=== PATIENT | male | born 1960 | race Caucasian/White ===

== ENCOUNTER 2018-11-20 10:46 | Emergency (ER) | payer OTHER ==
[2018-11-20 11:28] LABS: ABSOLUTE BASOPHILS # (AUTO) 0.1 10^3/uL (0.0-0.2); ABSOLUTE LYMPHOCYTES (AUTO) 1.6 10^3/uL (0.5-4.7); ABSOLUTE MONOCYTES (AUTO) 1.3 10^3/uL (0.1-1.4); ABSOLUTE NEUT (AUTO) 14.6 10^3/uL (1.7-8.2); BASOPHILS % (AUTO) 0.7 % (0-2); EOSINOPHILS % (AUTO) 0.1 % (0-6); HEMATOCRIT 45.6 % (37.9-51.0); HEMOGLOBIN 15.6 g/dL (13.5-17.0); MEAN CORPUSCULAR HEMOGLOBIN 30.9 pg (27.0-33.4); MEAN CORPUSCULAR HGB CONC 34.3 g/dL (32.0-36.0); MEAN CORPUSCULAR VOLUME 90 fl (80-97); MONOCYTES % (AUTO) 7.2 % (3-13); PLATELET COUNT 323 10^3/uL (150-450); RED BLOOD COUNT 5.07 10^6/uL (4.35-5.55); RED CELL DISTRIBUTION WIDTH 13.6 % (11.5-14.0); TOTAL CELLS COUNTED % (AUTO) 100 %; WHITE BLOOD COUNT 17.5 10^3/uL (4.0-10.5)
--- NOTE | 2018-11-20 11:33 | ER Document Report ---
ED General - General Chief Complaint: Chest Pain Stated Complaint: CHEST PAIN Time Seen by Provider: 11/20/18 11:26 Primary Care Provider: STEVE BLUM MD [ACTIVE STAFF] - Follow up as needed Notes: Patient says that he was in [employer] this morning and then did not feel good. He began having muscle spasms in his left rib cage, which he has had before, but also then started having some on the right side which is not usual for him. He felt very dizzy and drove himself here. He fell down and may have passed out, leaving his truck in the entrance way. He did not have any chest pains. He says he is never had any chest pains with any of his other symptoms this morning. Patient has been nauseated for the past day or 2. Says he drank some alcohol Tuesday night, but did not eat or drink anything yesterday. He says he drinks alcohol, maybe a couple of drinks a day after work, but does not feel he drinks too much. He has not had any abdominal pains. Has a history of a Dontrell fundoplication so he cannot vomit. Patient's work involves being outside all the time. It is been extremely warm and humid here for the past several weeks. Additionally, patient's unexpectedly on Mother's Day of this year. He saw his primary care provider, Dr. Rogers, who put him on Lexapro recently. Patient says that his health insurance has lapsed and was unable to get a CT scan that Dr. Winter wanted Patient has a history of bladder cancer for which she has had surgery as well as implants in the bladder or chemo. TRAVEL OUTSIDE OF THE [place] IN LAST 30 DAYS: No - Related Data Allergies/Adverse Reactions: No Known Allergies Allergy (Unverified 11/20/18 10:47) Past Medical History - Social History Smoking Status: Unknown if Ever Smoked Cigarette use (# per day): No Family History: Reviewed & Not Pertinent - Past Medical History Cardiac Medical History: Reports: Hx Hypercholesterolemia Malignancy Medical History: Reports Other - Bladder cancer surgery and aftercare Psychiatric Medical History: Reports: Hx Depression Past Surgical History: Reports: Other - Dontrell fundoplication. Review of Systems - Review of Systems Notes: REVIEW OF SYSTEMS: CONSTITUTIONAL : Denies fever. Feels very weak and tired. No appetite. Vital signs are all essentially normal. EENT: Denies eye, ear, nose or mouth or throat pain or other symptoms. CARDIOVASCULAR: Denies chest pain. RESPIRATORY: Denies cough, chest congestion, or shortness of breath. GASTROINTESTINAL: Some nausea but denies vomiting or diarrhea or constipation. A. GENITOURINARY: Denies difficulty or painful urinating, urinary frequency, blood in urine. MUSCULOSKELETAL: Denies back or neck pain. Denies joint pain or swelling. SKIN: Denies rash or skin lesions. NEUROLOGICAL: Denies LOC or altered mental status. Denies headache. Denies sensory loss or motor deficits. ALL OTHER SYSTEMS REVIEWED AND NEGATIVE. Physical Exam - Vital signs Vitals: Resp Pulse Ox 13 100 11/20/18 10:59 11/20/18 10:59 Interpretation: Normal Notes: PHYSICAL EXAMINATION: GENERAL: Well-appearing, in no acute distress. HEAD: Atraumatic, normocephalic. EYES: Pupils equal round and reactive to light, extraocular movements intact. No scleral icterus. ENT: oropharynx clear without exudates. Moist mucous membranes. NECK: Normal range of motion, supple. LUNGS: Breath sounds clear and equal bilaterally. HEART: Regular rate and rhythm without murmurs. ABDOMEN: Soft, nontender. No guarding or rebound. No masses. BACK: No tenderness throughout entire back. EXTREMITIES: Normal range of motion without pain. NEUROLOGICAL: Normal speech, normal gait. Normal sensory, motor, and reflex exams. Awake, alert, and oriented x3. Cranial nerves normal. PSYCH: Normal mood, normal affect. SKIN: Warm, dry, no rashes. Course - Re-evaluation Re-evalutation: 11/20/18 14:57 Feels much better. - Vital Signs Vital signs: Temp Pulse Resp BP Pulse Ox 98.0 F 16 167/97 H 96 11/20/18 15:00 11/20/18 15:00 11/20/18 15:00 11/20/18 15:00 - Laboratory Result Diagrams: 11/20/18 11:00 11/20/18 11:00 Laboratory results interpreted by me: 11/20/18 11/20/18 11/20/18 11:00 11:00 11:00 WBC 17.5 H Seg Neutrophils % 83.0 H Lymphocytes % 9.0 L Absolute Neutrophils 14.6 H Potassium 3.5 L Creatinine 1.55 H Est GFR ( Amer) 56 L Est GFR (Non-Af Amer) 46 L Glucose 153 H Total Bilirubin 1.4 H AST 62 H Creatine Kinase 375 H CK-MB (CK-2) 11.60 H Urine Protein Urine Glucose (UA) Urine Ascorbic Acid 11/20/18 12:02 WBC Seg Neutrophils % Lymphocytes % Absolute Neutrophils Potassium Creatinine Est GFR ( Amer) Est GFR (Non-Af Amer) Glucose Total Bilirubin AST Creatine Kinase CK-MB (CK-2) Urine Protein 100 H Urine Glucose (UA) 50 H Urine Ascorbic Acid 20 H Discharge - Discharge Clinical Impression: Dehydration Condition: Stable Disposition: HOME, SELF-CARE Additional Instructions: Dehydration Dehydration can result from vomiting or diarrhea, fever, or decreased intake of fluids. If severe, hospitalization and intravenous fluids may be required. Most cases are treated at home with fluids by mouth. For the next 24 hours, drink lots of clear fluids. In mild cases, this can be soda pop or sports drinks. For more severe dehydration, the doctor may recommend special fluids such as Pedialyte or Lytren. Try to get three liters (3 quarts) of fluid per day. If vomiting occurs, continue to drink the fluids frequently (every 15 to 20 minutes), but in small amounts (one or two ounces). Depending on the type of dehydration, the doctor may prescribe antinausea medicine or potassium replacements. Call the doctor or return for re-examination if you become progressively weak, vomit repeatedly, or have other new symptoms. Intravenous (IV) Fluids As part of your care today, you received intravenous (IV) fluids. IV fluids are administered to patients who are dehydrated or to those who have certain chemical (electrolyte) abnormalities that need correcting. Rest, drink plenty of fluids this evening, and work lightly over the next day or 2. Referrals: STEVE BLUM MD [ACTIVE STAFF] - Follow up as needed
[2018-11-20 11:35] LABS: INTERNATIONAL RATION (INR) 0.94; PROTHROMBIN TIME 12.5 SEC (11.4-15.4)
[2018-11-20 11:49] LABS: ALANINE AMINOTRANSFERASE 49 U/L (21-72); ALKALINE PHOSPHATASE 83 U/L (38-126); ANION GAP 16 (5-19); ASPARTATE AMINO TRANSFERASE 62 U/L (17-59); BILIRUBIN,DIRECT 0.2 mg/dL (0.0-0.4); BILIRUBIN,TOTAL 1.4 mg/dL (0.2-1.3); BLOOD UREA NITROGEN 20 mg/dL (7-20); CALCIUM 9.9 mg/dL (8.4-10.2); CARBON DIOXIDE 24 mmol/L (22-30); CHLORIDE 98 mmol/L (98-107); CREATINE KINASE 375 U/L (55-170); GLUCOSE 153 mg/dL (75-110); POTASSIUM 3.5 mmol/L (3.6-5.0); SODIUM 137.8 mmol/L (137-145); TOTAL PROTEIN 7.1 g/dL (6.3-8.2)
[2018-11-20] MEDS: NORMAL SALINE 1000 ML 1,000 ML IV PRN ×2 (12:00→12:25)
[2018-11-20 12:06] LABS: TROPONIN I < 0.012 ng/mL
[2018-11-20 12:37] LABS: APPEARANCE,URINE CLOUDY; BILIRUBIN,URINE NEGATIVE (NEGATIVE); GLUCOSE, URINE 50 mg/dL (NEGATIVE); KETONES,URINE NEGATIVE (NEGATIVE); LEUKOCYTE ESTERASE,URINE NEGATIVE (NEGATIVE); NITRITE,URINE NEGATIVE (NEGATIVE); PROTEIN,URINE 100 mg/dL (NEGATIVE); URINE SPECIFIC GRAVITY 1.015; UROBILINOGEN,URINE NEGATIVE mg/dL (<2.0)
[2018-11-20 12:39] LABS: COLOR,URINE YELLOW
[2018-11-20 15:28] VITALS: BP 167/97
--- NOTE | 2018-11-21 18:41 | EKG REPORT ---
SEVERITY:- NORMAL ECG - SINUS RHYTHM : Confirmed by: Will Chandler MD 21-Nov-2018 18:41:24
--- NOTE | 2018-11-22 07:37 | EKG REPORT ---
SEVERITY:- BORDERLINE ECG - SINUS RHYTHM BORDERLINE T WAVE ABNORMALITIES : Confirmed by: Will Chandler MD 22-Nov-2018 07:36:32
== END 2018-11-20 15:20 | disposition home or self-care (01) ==
LOC: ER 10:46
DX: E86.0 Dehydration (principal); M62.838 Other muscle spasm; R42 Dizziness and giddiness; R11.0 Nausea; R63.0 Anorexia; R53.83 Other fatigue; Z85.51 Personal history of malignant neoplasm of bladder
CPT/HCPCS: 93005; 99285; 96360; 36415; 82553; 82550; 85025; 85610; 80053; 81001; 84484; 93010; J7030

== ENCOUNTER 2018-12-15 12:42 | Inpatient (IN) | payer BC ==
[2018-12-15] MEDS ORDERED: ONDANSETRON HCL INJ/PF 4 MG/2 ML SDV IV ONE (13:11)
[2018-12-15] MEDS ORDERED: KETOROLAC TROMETHAMINE INJ/PF 30 MG/1 ML SDV IV ONE ×2 (13:11→18:55)
--- NOTE | 2018-12-15 13:15 | ER Document Report ---
ED Medical Screen (RME) - General Chief Complaint: Cough Stated Complaint: SHORTNESS OF BREATH Time Seen by Provider: 12/15/18 13:02 Primary Care Provider: UMBERTO ALVARADO MD [Primary Care Provider] - Follow up as needed Mode of Arrival: Wheelchair Information source: Patient Notes: 57-year-old male presented to ED for complaint of headache body aches fever si nce Tuesday. His states his fevers been from 101-103.5 and is 102.9 right now. He states the lowest his temperature is been since Tuesday was 99 this morning. Patient is alert oriented shivering and has been extremely ill since Tuesday. He states he has a history of bladder cancer that is come back multiple times. He has had numerous bladder resections TURB, tonsillectomy, he states he is not able to take Tylenol due to his liver. He states he no longer smokes but he does drink. He does not use any drugs. Lives with his family. He states he has not had a temperature under 99 since Tuesday and most of the time is been over 101. He is toxic in appearance. I have greeted and performed a rapid initial assessment of this patient. A comprehensive ED assessment and evaluation of the patient, analysis of test results and completion of medical decision making process will be conducted by an additional ED providers. Dictation of this chart was performed using voice recognition software; therefore, there may be some unintended grammatical errors. TRAVEL OUTSIDE OF THE [place] IN LAST 30 DAYS: No - Related Data Allergies/Adverse Reactions: No Known Allergies Allergy (Verified 12/15/18 12:45) Past Medical History - Social History Chew tobacco use (# tins/day): No Frequency of alcohol use: Occasional Drug Abuse: None - Past Medical History Cardiac Medical History: Reports: Hx Hypercholesterolemia Renal/ Medical History: Denies: Hx Peritoneal Dialysis Psychiatric Medical History: Reports: Hx Depression Past Surgical History: Reports: Hx Abdominal Surgery - dinah, Hx Tonsillectomy, Hx Urinary Tract Surgery, Other - Dontrell fundoplication. Physical Exam - Vital signs Vitals: Temp Pulse Resp BP Pulse Ox 102.9 F H 102 H 20 173/92 H 90 L 12/15/18 12:56 12/15/18 12:56 12/15/18 12:56 12/15/18 12:56 12/15/18 12:56 Course - Vital Signs Vital signs: Temp Pulse Resp BP Pulse Ox 102.9 F H 102 H 20 173/92 H 90 L 12/15/18 12:56 12/15/18 12:56 12/15/18 12:56 12/15/18 12:56 12/15/18 12:56 Doctor's Discharge - Discharge Referrals: UMBERTO ALVARADO MD [Primary Care Provider] - Follow up as needed
[2018-12-15 14:12] LABS: HEMATOCRIT 34.2 % (37.9-51.0); HEMOGLOBIN 11.6 g/dL (13.5-17.0); MEAN CORPUSCULAR HEMOGLOBIN 30.8 pg (27.0-33.4); MEAN CORPUSCULAR HGB CONC 33.9 g/dL (32.0-36.0); MEAN CORPUSCULAR VOLUME 91 fl (80-97); PLATELET COUNT 438 10^3/uL (150-450); RED BLOOD COUNT 3.76 10^6/uL (4.35-5.55); RED CELL DISTRIBUTION WIDTH 13.2 % (11.5-14.0); WHITE BLOOD COUNT 13.5 10^3/uL (4.0-10.5)
[2018-12-15 14:16] LABS: INTERNATIONAL RATION (INR) 1.07; PROTHROMBIN TIME 13.9 SEC (11.4-15.4)
[2018-12-15 14:23] LABS: VENOUS BLOOD BASE EXCESS 1.6 mmol/L; VENOUS BLOOD HCO3 26.6 mmol/L (20-32); VENOUS BLOOD PCO2 42.8 mmHg (35-63); VENOUS BLOOD PH 7.41 (7.30-7.42)
[2018-12-15] MEDS: NORMAL SALINE 1000 ML 1,000 ML IV PRN ×2 (14:30→15:31)
[2018-12-15 14:31] LABS: ABSOLUTE LYMPHOCYTES# (MANUAL) 0.3 10^3/uL (0.5-4.7); ABSOLUTE MONOCYTES # (MANUAL) 0.1 10^3/uL (0.1-1.4); BASOPHILS % (MANUAL) 0 % (0-2); EOSINOPHILS % (MANUAL) 0 % (0-6); LYMPHOCYTES % (MANUAL) 2 % (13-45); MONOCYTES % (MANUAL) 1 % (3-13); SEGMENTED NEUTROPHILS % (MAN) 97 % (42-78); TOTAL CELLS COUNTED 100
[2018-12-15 14:32] LABS: RBC MORPHOLOGY COMMENT NORMO-CYTIC/CHROMIC
[2018-12-15 14:33] LABS: PLATELET COMMENT ADEQUATE
[2018-12-15 14:36] LABS: ALBUMIN 3.6 g/dL (3.5-5.0); ALKALINE PHOSPHATASE 213 U/L (38-126); ANION GAP 15 (5-19); ASPARTATE AMINO TRANSFERASE 246 U/L (17-59); BILIRUBIN,DIRECT 1.3 mg/dL (0.0-0.4); BILIRUBIN,TOTAL 1.6 mg/dL (0.2-1.3); BLOOD UREA NITROGEN 11 mg/dL (7-20); CALCIUM 8.9 mg/dL (8.4-10.2); CARBON DIOXIDE 26 mmol/L (22-30); CHLORIDE 92 mmol/L (98-107); GLUCOSE 165 mg/dL (75-110); POTASSIUM 4.5 mmol/L (3.6-5.0); TOTAL PROTEIN 6.1 g/dL (6.3-8.2)
[2018-12-15] MEDS ORDERED: NORMAL SALINE 1000 ML 1,000 ML IV ONE (15:22)
[2018-12-15] MEDS ORDERED: ACETAMINOPHEN 1,000 MG/100 ML RTUPB IV ONE (15:22)
--- NOTE | 2018-12-15 15:22 | ER Document Report ---
ED General - General Chief Complaint: Cough Stated Complaint: SHORTNESS OF BREATH Time Seen by Provider: 12/15/18 13:02 Primary Care Provider: UMBERTO ALVARADO MD [Primary Care Provider] - Follow up as needed Mode of Arrival: Wheelchair Information source: Patient Notes: Patient is a 57-year-old male with past medical history of recurrent bladder cancer and hyperlipidemia presenting to the emergency department with multiple complaints today. Patient reports he has had fever and body aches with a headache that started on Tuesday. He states he was seen at an urgent care on Tuesday or Tuesday and was placed on an antibiotic. Patient reports his symptoms have persisted since then. The degree describes a pain on the top of his head with light palpation, he also reports a headache in his bilateral temples. He reports some diarrhea and shortness of breath but denies any nausea, vomiting or chest pain. Patient is febrile at the time of arrival. He also reports that his primary care physician noted some type of a mass on the right lateral side of his neck, states that he is supposed to have a CT scan of this area however this has not been able to be completed yet. TRAVEL OUTSIDE OF THE [place] IN LAST 30 DAYS: No - Related Data Allergies/Adverse Reactions: No Known Allergies Allergy (Verified 12/15/18 12:45) Past Medical History - General Information source: Patient - Social History Smoking Status: Never Smoker Chew tobacco use (# tins/day): No Frequency of alcohol use: Occasional Drug Abuse: None Family History: Reviewed & Not Pertinent Patient has suicidal ideation: No Patient has homicidal ideation: No - Past Medical History Cardiac Medical History: Reports: Hx Hypercholesterolemia Pulmonary Medical History: Reports: Hx Bronchitis, Hx Pneumonia Renal/ Medical History: Denies: Hx Peritoneal Dialysis Psychiatric Medical History: Reports: Hx Depression Past Surgical History: Reports: Hx Abdominal Surgery - dinah, Hx Tonsillectomy, Hx Urinary Tract Surgery, Other - Dontrell fundoplication. Review of Systems - Review of Systems Constitutional: Chills, Fever EENT: No symptoms reported Cardiovascular: No symptoms reported Respiratory: Cough, Short of breath Gastrointestinal: Nausea Genitourinary: No symptoms reported Male Genitourinary: No symptoms reported Musculoskeletal: No symptoms reported Skin: No symptoms reported Hematologic/Lymphatic: No symptoms reported Neurological/Psychological: Headaches Physical Exam - Vital signs Vitals: Temp Pulse Resp BP Pulse Ox 102.9 F H 102 H 20 173/92 H 90 L 12/15/18 12:56 12/15/18 12:56 12/15/18 12:56 12/15/18 12:56 12/15/18 12:56 - Notes Notes: PHYSICAL EXAMINATION: GENERAL: No acute distress. HEAD: Atraumatic, normocephalic. EYES: Pupils equal round and reactive to light, extraocular movements intact, sclera anicteric, conjunctiva are normal. ENT: Nares patent, oropharynx clear without exudates. Moist mucous membranes. NECK: Normal range of motion, supple without lymphadenopathy LUNGS: Breath sounds clear to auscultation bilaterally and equal. No wheezes rales or rhonchi. HEART: Regular rate and rhythm without murmurs ABDOMEN: Soft, nontender, nondistended abdomen. No guarding, no rebound. No masses appreciated. Musculoskeletal: Normal range of motion, no pitting or edema. No cyanosis. NEUROLOGICAL: Cranial nerves grossly intact. Normal speech, normal gait. Normal sensory, motor exams PSYCH: Normal mood, normal affect. SKIN: Warm, Dry, normal turgor, no rashes or lesions noted. Course - Re-evaluation Re-evalutation: Laboratory 12/15/18 12/15/18 12/15/18 13:55 13:55 13:55 WBC 13.5 H RBC 3.76 L Hgb 11.6 L Hct 34.2 L MCV 91 MCH 30.8 MCHC 33.9 RDW 13.2 Plt Count 438 Total Counted 100 Seg Neutrophils % Not Reportable Seg Neuts % (Manual) 97 H Lymphocytes % Not Reportable Lymphocytes % (Manual) 2 L Monocytes % Not Reportable Monocytes % (Manual) 1 L Eosinophils % Not Reportable Eosinophils % (Manual) 0 Basophils % Not Reportable Basophils % (Manual) 0 Absolute Neutrophils Not Reportable Abs Neuts (Manual) 13.1 H Absolute Lymphocytes Not Reportable Abs Lymphs (Manual) 0.3 L Absolute Monocytes Not Reportable Abs Monocytes (Manual) 0.1 Absolute Eosinophils Not Reportable Absolute Eos (Manual) 0.0 Absolute Basophils Not Reportable Abs Basophils (Manual) 0.0 Platelet Comment ADEQUATE RBC Morph Comment NORMO-CYTIC/CHROMIC PT 13.9 INR 1.07 VBG pH VBG pCO2 VBG HCO3 VBG Base Excess Sodium 132.6 L Potassium 4.5 Chloride 92 L Carbon Dioxide 26 Anion Gap 15 BUN 11 Creatinine 0.93 Est GFR ( Amer) > 60 Est GFR (Non-Af Amer) > 60 Glucose 165 H Lactic Acid Calcium 8.9 Total Bilirubin 1.6 H Direct Bilirubin 1.3 H Neonat Total Bilirubin Not Reportable Neonat Direct Bilirubin Not Reportable Neonat Indirect Bili Not Reportable GGT AST 246 H ALT 162 Alkaline Phosphatase 213 H Troponin I Total Protein 6.1 L Albumin 3.6 Lipase 65.7 Urine Color Urine Appearance Urine pH Ur Specific [place] Urine Protein Urine Glucose (UA) Urine Ketones Urine Blood Urine Nitrite Urine Bilirubin Urine Urobilinogen Ur Leukocyte Esterase Urine WBC (Auto) Urine RBC (Auto) Urine Ascorbic Acid Serum Alcohol 12/15/18 12/15/18 12/15/18 13:55 13:55 13:55 WBC RBC Hgb Hct MCV MCH MCHC RDW Plt Count Total Counted Seg Neutrophils % Seg Neuts % (Manual) Lymphocytes % Lymphocytes % (Manual) Monocytes % Monocytes % (Manual) Eosinophils % Eosinophils % (Manual) Basophils % Basophils % (Manual) Absolute Neutrophils Abs Neuts (Manual) Absolute Lymphocytes Abs Lymphs (Manual) Absolute Monocytes Abs Monocytes (Manual) Absolute Eosinophils Absolute Eos (Manual) Absolute Basophils Abs Basophils (Manual) Platelet Comment RBC Morph Comment PT INR VBG pH 7.41 VBG pCO2 42.8 VBG HCO3 26.6 VBG Base Excess 1.6 Sodium Potassium Chloride Carbon Dioxide Anion Gap BUN Creatinine Est GFR ( Amer) Est GFR (Non-Af Amer) Glucose Lactic Acid 1.3 Calcium Total Bilirubin Direct Bilirubin Neonat Total Bilirubin Neonat Direct Bilirubin Neonat Indirect Bili GGT AST ALT Alkaline Phosphatase Troponin I < 0.012 Total Protein Albumin Lipase Urine Color Urine Appearance Urine pH Ur Specific [place] Urine Protein Urine Glucose (UA) Urine Ketones Urine Blood Urine Nitrite Urine Bilirubin Urine Urobilinogen Ur Leukocyte Esterase Urine WBC (Auto) Urine RBC (Auto) Urine Ascorbic Acid Serum Alcohol 12/15/18 12/15/18 13:55 16:30 WBC RBC Hgb Hct MCV MCH MCHC RDW Plt Count Total Counted Seg Neutrophils % Seg Neuts % (Manual) Lymphocytes % Lymphocytes % (Manual) Monocytes % Monocytes % (Manual) Eosinophils % Eosinophils % (Manual) Basophils % Basophils % (Manual) Absolute Neutrophils Abs Neuts (Manual) Absolute Lymphocytes Abs Lymphs (Manual) Absolute Monocytes Abs Monocytes (Manual) Absolute Eosinophils Absolute Eos (Manual) Absolute Basophils Abs Basophils (Manual) Platelet Comment RBC Morph Comment PT INR VBG pH VBG pCO2 VBG HCO3 VBG Base Excess Sodium Potassium Chloride Carbon Dioxide Anion Gap BUN Creatinine Est GFR ( Amer) Est GFR (Non-Af Amer) Glucose Lactic Acid Calcium Total Bilirubin Direct Bilirubin Neonat Total Bilirubin Neonat Direct Bilirubin Neonat Indirect Bili GGT 231 H AST ALT Alkaline Phosphatase Troponin I Total Protein Albumin Lipase Urine Color YELLOW Urine Appearance CLEAR Urine pH 7.0 Ur Specific [place] 1.003 Urine Protein NEGATIVE Urine Glucose (UA) NEGATIVE Urine Ketones NEGATIVE Urine Blood NEGATIVE Urine Nitrite NEGATIVE Urine Bilirubin NEGATIVE Urine Urobilinogen 2.0 H Ur Leukocyte Esterase NEGATIVE Urine WBC (Auto) 1 Urine RBC (Auto) 1 Urine Ascorbic Acid NEGATIVE Serum Alcohol < [address] 12/15/18 00:00 IMPRESSION: Mediastinal and hilar lymphadenopathy.Diffuse interstitial - nodular and ground-glass opacities are present throughout both lungs, upper lobe predominance. No pleural effusion. IMPRESSION: Asymmetric thickening of the bladder wall, left side measures 8 mm thickness. Numerous areas of lymphadenopathy are seen in the external iliac and common iliac chains bilaterally, right greater than left. Chest X-Ray 12/15/18 13:10 IMPRESSION: There is diffuse patchy bilateral ground-glass pulmonary opacity, suggestive of edema or infection. Mild cardiomegaly. Head CT 12/15/18 15:18 IMPRESSION: NO ACUTE INTRACRANIAL FINDINGS. EVIDENCE OF ACUTE STROKE: NO. Soft Tissue Neck CT 12/15/18 15:18 IMPRESSION: Mild bilateral cervical level 4 and supraclavicular adenopathy. Coarse interstitial -nodular and ground-glass opacities throughout both upper lobes.Upper mediastinal adenopathy. Abdomen/Pelvis CT 12/15/18 15:19 IMPRESSION: Mediastinal and hilar lymphadenopathy.Diffuse interstitial - nodular and ground-glass opacities are present throughout both lungs, upper lobe predominance. No pleural effusion. IMPRESSION: Asymmetric thickening of the bladder wall, left side measures 8 mm thickness. Numerous areas of lymphadenopathy are seen in the external iliac and common iliac chains bilaterally, right greater than left. Work-up as outlined above. Patient has done well during his emergency depar tment stay. His fever was resolved after administration of IV Tylenol and IV Toradol. He does continue to have a headache. I did contact hospitalist regarding admission for this patient for pneumonia and possible recurrence of bladder cancer. Dr. Oneal accepts patient for admission. - Vital Signs Vital signs: Temp Pulse Resp BP Pulse Ox 99.9 F 89 20 143/77 H 89 L 12/15/18 18:00 12/15/18 16:22 12/15/18 12:56 12/15/18 16:22 12/15/18 16:22 - Laboratory Result Diagrams: 12/15/18 13:55 12/15/18 13:55 Laboratory results interpreted by me: 12/15/18 12/15/18 12/15/18 13:55 13:55 16:30 WBC 13.5 H RBC 3.76 L Hgb 11.6 L Hct 34.2 L Seg Neuts % (Manual) 97 H Lymphocytes % (Manual) 2 L Monocytes % (Manual) 1 L Abs Neuts (Manual) 13.1 H Abs Lymphs (Manual) 0.3 L Sodium 132.6 L Chloride 92 L Glucose 165 H Total Bilirubin 1.6 H Direct Bilirubin 1.3 H AST 246 H Alkaline Phosphatase 213 H Total Protein 6.1 L Urine Urobilinogen 2.0 H Discharge - Discharge Clinical Impression: Bladder wall thickening Pneumonia Qualifiers: Pneumonia type: due to unspecified organism Laterality: unspecified laterality Lung location: unspecified part of lung Qualified Code(s): J18.9 - Pneumonia, unspecified organism Leukocytosis Qualifiers: Leukocytosis type: unspecified Qualified Code(s): D72.829 - Elevated white blood cell count, unspecified Fever Qualifiers: Fever type: unspecified Qualified Code(s): R50.9 - Fever, unspecified Disposition: ADMITTED INPATIENT Admitting Provider: Jm (Hospitalist) Unit Admitted: Telemetry Referrals: UMBERTO ALVARADO MD [Primary Care Provider] - Follow up as needed
--- NOTE | 2018-12-15 15:31 | RADIOLOGY REPORT (SQ) ---
EXAM DESCRIPTION: CHEST 2 VIEWS COMPLETED DATE/TIME: 12/15/2018 3:01 pm REASON FOR STUDY: cough fever COMPARISON: None. EXAM PARAMETERS: NUMBER OF VIEWS: two views TECHNIQUE: Digital Frontal and Lateral radiographic views of the chest acquired. RADIATION DOSE: NA LIMITATIONS: none FINDINGS: LUNGS AND PLEURA: There is diffuse patchy bilateral ground-glass pulmonary opacity. MEDIASTINUM AND HILAR STRUCTURES: No masses or contour abnormalities. HEART AND VASCULAR STRUCTURES: Mild cardiomegaly. BONES: No acute findings. HARDWARE: None in the chest. OTHER: No other significant finding. IMPRESSION: There is diffuse patchy bilateral ground-glass pulmonary opacity, suggestive of edema or infection. Mild cardiomegaly. TECHNICAL DOCUMENTATION: JOB ID: [id number] [employer]- All Rights Reserved Reading location - IP/workstation name: [email or web address]
[2018-12-15] MEDS ORDERED: CEFTRIAXONE 1 GM/D5W RTU 50 ML IV ONE (16:23)
[2018-12-15] MEDS ORDERED: AZITHROMYCIN INJ 500 MG VIAL IV ONE (16:24)
[2018-12-15 16:50] LABS: APPEARANCE,URINE CLEAR; BILIRUBIN,URINE NEGATIVE (NEGATIVE); COLOR,URINE YELLOW; GLUCOSE, URINE NEGATIVE (NEGATIVE); KETONES,URINE NEGATIVE (NEGATIVE); LEUKOCYTE ESTERASE,URINE NEGATIVE (NEGATIVE); NITRITE,URINE NEGATIVE (NEGATIVE); PROTEIN,URINE NEGATIVE (NEGATIVE); URINE SPECIFIC GRAVITY 1.003
[2018-12-15] MEDS ORDERED: CEFTRIAXONE INJ 1000 MG VIAL IV ONE (17:15)
--- NOTE | 2018-12-15 17:27 | RADIOLOGY REPORT (SQ) ---
EXAM DESCRIPTION: CT HEAD WITHOUT COMPLETED DATE/TIME: 12/15/2018 5:11 pm REASON FOR STUDY: headache, eval for mass R lateral neck COMPARISON: None. TECHNIQUE: Axial images acquired through the brain without intravenous contrast. Images reviewed wit h bone, brain and subdural windows. Images stored on PACS. All CT scanners at this facility use dose modulation, iterative reconstruction, and/or weight based d osing when appropriate to reduce radiation dose to as low as reasonably achievable (ALARA). [facility]: Dose Right [facility]: CareDose [facility]: Dose Right [facility]: Teradose 4D [facility]: [employer] ([employer]) RADIATION DOSE: CT Rad equipment meets quality standard of care and radiation dose reduction techniq ues were employed. CTDIvol: 53.2 mGy. DLP: 991 mGy-cm.. LIMITATIONS: None. FINDINGS: VENTRICLES: Normal size and contour. CEREBRUM: No masses. No hemorrhage. No midline shift. Age appropriate white matter. No evidence for a cute infarction. CEREBELLUM: No masses. No hemorrhage. No alteration of density. No evidence for acute infarction. EXTRA-AXIAL SPACES: No fluid collections. ORBITS AND GLOBE: No intra- or extraconal masses. Normal contour of globe without masses. CALVARIUM: No fracture. PARANASAL SINUSES: No fluid or mucosal thickening. SOFT TISSUES: No mass or hematoma. OTHER: No other significant finding. IMPRESSION: NO ACUTE INTRACRANIAL FINDINGS. EVIDENCE OF ACUTE STROKE: NO. TECHNICAL DOCUMENTATION: JOB ID: [id number] Quality ID # [id number]: Final reports with documentation of one or more dose reduction techniques (e.g., Au tomated exposure control, adjustment of the mA and/or kV according to patient size, use of iterative reconstruction technique) 2010 [employer]- All Rights Reserved Reading location - IP/workstation name: [email or web address]
--- NOTE | 2018-12-15 17:56 | RADIOLOGY REPORT (SQ) ---
EXAM DESCRIPTION: CT CHEST WITH; CT ABD/PELVIS WITH IV ONLY COMPLETED DATE/TIME: 12/15/2018 5:18 pm REASON FOR STUDY: BLADDER CA/HEADACHE/ABNORMAL FINDINGS; weight loss, leukocytosis, hx of bladder ca CONTRAST TYPE AND DOSE: contrast/concentration: Isovue mg/ml; Total Contrast Delivered: 126.0 ml; T otal Saline Delivered: 125.0 ml RENAL FUNCTION: GFR > 60. COMPARISON: None. TECHNIQUE: CT scan of the chest performed using helical scanning technique with dynamic intravenous contrast injection. Images reviewed with lung, soft tissue and bone windows. Reconstructed coronal a nd sagittal MPR images reviewed. All images stored on PACS. All CT scanners at this facility use dose modulation, iterative reconstruction, and/or weight based d osing when appropriate to reduce radiation dose to as low as reasonably achievable (ALARA). [facility]: Dose Right [facility]: CareDose [facility]: Dose Right [facility]: Teradose 4D [facility]: ExpenseBot RADIATION DOSE: CT Rad equipment meets quality standard of care and radiation dose reduction techniq ues were employed. CTDIvol: 9.6 - 14.4 mGy. DLP: 1463 mGy-cm.. LIMITATIONS: Mild breathing motion. FINDINGS: AXILLAE: Mild adenopathy. CHEST WALL: No masses. No subcutaneous air. LUNGS: Diffuse interstitial - nodular and ground-glass opacities are present throughout both lungs, u pper lobe predominance. No pneumothorax. No pleural effusion. PLEURA: No effusions. No calcifications. THYROID: No masses or significant asymmetry. HILAR AND MEDIASTINAL STRUCTURES: Mediastinal and hilar lymphadenopathy. AORTA AND GREAT VESSELS: No aneurysm. No dissection. PULMONARY ARTERIES: No identified pulmonary emboli. Study not optimized for the pulmonary arteries. HEART: No pericardial effusion. HARDWARE AND LIFELINES: None. BONES: No significant finding. OTHER: No other significant finding. IMPRESSION: Mediastinal and hilar lymphadenopathy.Diffuse interstitial - nodular and ground-glass op acities are present throughout both lungs, upper lobe predominance. No pleural effusion. COMPARISON: None. RADIATION DOSE: CT Rad equipment meets quality standard of care and radiation dose reduction techniq ues were employed. CTDIvol: 9.6 - 14.4 mGy. DLP: 1463 mGy-cm.mGy. TECHNIQUE: CT scan of the abdomen and pelvis performed with intravenous and oral contrast using merari love scanning technique with dynamic intravenous contrast injection. Images reviewed with lung, soft tissue and bone windows. Reconstructed coronal and sagittal MPR images reviewed. Delayed images for evaluation of the urinary system also acquired and evaluated. All images stored on PACS. All CT scanners at this facility use dose modulation, iterative reconstruction, and/or weight based d osing when appropriate to reduce radiation dose to as low as reasonably achievable (ALARA). [facility]: Dose Right [facility]: SureCare [facility]: Dose Right [facility]: Teradose 4D [facility]: [employer] FINDINGS: LIVER: Normal size. No masses. No dilated ducts. SPLEEN: Normal size. No focal lesions. PANCREAS: No masses. No significant calcifications. No adjacent inflammation or peripancreatic flui d collections. Pancreatic duct not dilated. GALLBLADDER: No identified stones by CT criteria. No inflammatory changes to suggest cholecystitis. ADRENAL GLANDS: No significant masses or asymmetry. RIGHT KIDNEY AND URETER: No solid masses. No significant calcification. No hydronephrosis or hydroure ter. LEFT KIDNEY AND URETER: No solid masses. No significant calcification. No hydronephrosis or hydrouret er. AORTA AND VESSELS: No aneurysm. No dissection. Renal arteries, SMA, celiac without stenosis. RETROPERITONEUM: No retroperitoneal adenopathy, hemorrhage or masses. LARGE AND SMALL BOWEL: No dilatation. No focal inflammatory changes. . APPENDIX: Normal. ABDOMINAL WALL: No hernia or masses. PERITONEAL CAVITY: No free air. No free fluid. No peritoneal implants or masses. PELVIS: Asymmetric thickening of the bladder wall, left side measures 8 mm thickness. Numerous areas of lymphadenopathy are seen in the external iliac and common iliac chains bilaterally, right greater than left. . BONES: No significant or acute findings. OTHER: No other significant finding. IMPRESSION: Asymmetric thickening of the bladder wall, left side measures 8 mm thickness. Numerous areas of lymphadenopathy are seen in the external iliac and common iliac chains bilaterally, right gr eater than left. TECHNICAL DOCUMENTATION: JOB ID: [id number] [place]-72 Quality ID # [id number]: Final reports with documentation of one or more dose reduction techniques (e.g., Au tomated exposure control, adjustment of the mA and/or kV according to patient size, use of iterative reconstruction technique) 2010 [employer]- All Rights Reserved Reading location - IP/workstation name: [email or web address]
--- NOTE | 2018-12-15 17:56 | RADIOLOGY REPORT (SQ) ---
EXAM DESCRIPTION: CT CHEST WITH; CT ABD/PELVIS WITH IV ONLY COMPLETED DATE/TIME: 12/15/2018 5:18 pm REASON FOR STUDY: BLADDER CA/HEADACHE/ABNORMAL FINDINGS; weight loss, leukocytosis, hx of bladder ca CONTRAST TYPE AND DOSE: contrast/concentration: Isovue mg/ml; Total Contrast Delivered: 126.0 ml; T otal Saline Delivered: 125.0 ml RENAL FUNCTION: GFR > 60. COMPARISON: None. TECHNIQUE: CT scan of the chest performed using helical scanning technique with dynamic intravenous contrast injection. Images reviewed with lung, soft tissue and bone windows. Reconstructed coronal a nd sagittal MPR images reviewed. All images stored on PACS. All CT scanners at this facility use dose modulation, iterative reconstruction, and/or weight based d osing when appropriate to reduce radiation dose to as low as reasonably achievable (ALARA). [facility]: Dose Right [facility]: CareDose [facility]: Dose Right [facility]: Teradose 4D [facility]: [employer] RADIATION DOSE: CT Rad equipment meets quality standard of care and radiation dose reduction techniq ues were employed. CTDIvol: 9.6 - 14.4 mGy. DLP: 1463 mGy-cm.. LIMITATIONS: Mild breathing motion. FINDINGS: AXILLAE: Mild adenopathy. CHEST WALL: No masses. No subcutaneous air. LUNGS: Diffuse interstitial - nodular and ground-glass opacities are present throughout both lungs, u pper lobe predominance. No pneumothorax. No pleural effusion. PLEURA: No effusions. No calcifications. THYROID: No masses or significant asymmetry. HILAR AND MEDIASTINAL STRUCTURES: Mediastinal and hilar lymphadenopathy. AORTA AND GREAT VESSELS: No aneurysm. No dissection. PULMONARY ARTERIES: No identified pulmonary emboli. Study not optimized for the pulmonary arteries. HEART: No pericardial effusion. HARDWARE AND LIFELINES: None. BONES: No significant finding. OTHER: No other significant finding. IMPRESSION: Mediastinal and hilar lymphadenopathy.Diffuse interstitial - nodular and ground-glass op acities are present throughout both lungs, upper lobe predominance. No pleural effusion. COMPARISON: None. RADIATION DOSE: CT Rad equipment meets quality standard of care and radiation dose reduction techniq ues were employed. CTDIvol: 9.6 - 14.4 mGy. DLP: 1463 mGy-cm.mGy. TECHNIQUE: CT scan of the abdomen and pelvis performed with intravenous and oral contrast using merari love scanning technique with dynamic intravenous contrast injection. Images reviewed with lung, soft tissue and bone windows. Reconstructed coronal and sagittal MPR images reviewed. Delayed images for evaluation of the urinary system also acquired and evaluated. All images stored on PACS. All CT scanners at this facility use dose modulation, iterative reconstruction, and/or weight based d osing when appropriate to reduce radiation dose to as low as reasonably achievable (ALARA). [facility]: Dose Right [facility]: SureCare [facility]: Dose Right [facility]: Teradose 4D [facility]: [employer] FINDINGS: LIVER: Normal size. No masses. No dilated ducts. SPLEEN: Normal size. No focal lesions. PANCREAS: No masses. No significant calcifications. No adjacent inflammation or peripancreatic flui d collections. Pancreatic duct not dilated. GALLBLADDER: No identified stones by CT criteria. No inflammatory changes to suggest cholecystitis. ADRENAL GLANDS: No significant masses or asymmetry. RIGHT KIDNEY AND URETER: No solid masses. No significant calcification. No hydronephrosis or hydroure ter. LEFT KIDNEY AND URETER: No solid masses. No significant calcification. No hydronephrosis or hydrouret er. AORTA AND VESSELS: No aneurysm. No dissection. Renal arteries, SMA, celiac without stenosis. RETROPERITONEUM: No retroperitoneal adenopathy, hemorrhage or masses. LARGE AND SMALL BOWEL: No dilatation. No focal inflammatory changes. . APPENDIX: Normal. ABDOMINAL WALL: No hernia or masses. PERITONEAL CAVITY: No free air. No free fluid. No peritoneal implants or masses. PELVIS: Asymmetric thickening of the bladder wall, left side measures 8 mm thickness. Numerous areas of lymphadenopathy are seen in the external iliac and common iliac chains bilaterally, right greater than left. . BONES: No significant or acute findings. OTHER: No other significant finding. IMPRESSION: Asymmetric thickening of the bladder wall, left side measures 8 mm thickness. Numerous areas of lymphadenopathy are seen in the external iliac and common iliac chains bilaterally, right gr eater than left. TECHNICAL DOCUMENTATION: JOB ID: [id number] [place]-72 Quality ID # [id number]: Final reports with documentation of one or more dose reduction techniques (e.g., Au tomated exposure control, adjustment of the mA and/or kV according to patient size, use of iterative reconstruction technique) 2010 [employer]- All Rights Reserved Reading location - IP/workstation name: [email or web address]
--- NOTE | 2018-12-15 18:09 | RADIOLOGY REPORT (SQ) ---
EXAM DESCRIPTION: CT SOFT TISSUE NECK WITH COMPLETED DATE/TIME: 12/15/2018 5:44 pm REASON FOR STUDY: headache, eval for mass R lateral neck COMPARISON: None. TECHNIQUE: Post IV contrasted scanning from skull base through lung apices with review of bone, soft tissue and lung windows. Reconstructed coronal and sagittal MPR images reviewed. All images stored on PACS. All CT scanners at this facility use dose modulation, iterative reconstruction, and/or weight based d osing when appropriate to reduce radiation dose to as low as reasonably achievable (ALARA). [facility]: Dose Right [facility]: CareDose [facility]: Dose Right [facility]: Teradose 4D [facility]: [employer] CONTRAST TYPE AND DOSE: 100 mL Omnipaque 300- low osmolar. RENAL FUNCTION: GFR > 60. RADIATION DOSE: CT Rad equipment meets quality standard of care and radiation dose reduction techniq ues were employed. CTDIvol: 16.1 mGy. DLP: 564 mGy-cm. . LIMITATIONS: None. FINDINGS: SKULL BASE: Intact. MAJOR SALIVARY GLANDS: No solid or cystic masses. No inflammatory changes. LYMPHADENOPATHY: Mild bilateral cervical level 4 and supraclavicular adenopathy. Upper mediastinal a denopathy. MUCOSAL MASSES OR ASYMMETRY: No mucosal masses or asymmetry. LARYNX/CORDS: No abnormal findings. VASCULAR STRUCTURES: The major vessels are patent. LUNG APICES: Coarse interstitial -nodular and ground-glass opacities throughout both upper lobes. BONES: Intact. THYROID: Normal size. No masses. PARANASAL SINUSES: Clear. OTHER: No other significant finding. IMPRESSION: Mild bilateral cervical level 4 and supraclavicular adenopathy. Coarse interstitial -nodular and ground-glass opacities throughout both upper lobes.Upper mediastinal adenopathy. TECHNICAL DOCUMENTATION: JOB ID: [id number] [place]-72 Quality ID # [id number]: Final reports with documentation of one or more dose reduction techniques (e.g., Au tomated exposure control, adjustment of the mA and/or kV according to patient size, use of iterative reconstruction technique) 2010 [employer]- All Rights Reserved Reading location - IP/workstation name: [employer]
[2018-12-15] MEDS ORDERED: LORAZEPAM INJ 2 MG/1 ML VIAL IV ONE (19:01)
--- NOTE | 2018-12-15 19:01 | EKG REPORT ---
SEVERITY:- BORDERLINE ECG - SINUS RHYTHM BORDERLINE T ABNORMALITIES, ANTERIOR LEADS : Confirmed by: Will Chandler MD 15-Dec-2018 19:00:48
[2018-12-15 19:41] LABS: ALCOHOL < 10 mg/dL (NONE DETECTED)
[2018-12-15] MEDS ORDERED: ACETAMINOPHEN 325 MG TABLET PO PRN (19:44)
[2018-12-15] MEDS ORDERED: CYCLOBENZAPRINE HCL 10 MG TABLET PO PRN (19:51)
[2018-12-15] MEDS ORDERED: AMITRIPTYLINE HCL 50 MG TABLET PO PRN (19:51)
[2018-12-15] MEDS ORDERED: MELOXICAM 7.5 MG TABLET PO PRN (19:51)
[2018-12-15] MEDS ORDERED: LORAZEPAM 1 MG TABLET PO PRN (19:53)
[2018-12-15] MEDS: RINGERS SOLUTION,LACTATED 1,000 ML IV PRN (20:11)
--- NOTE | 2018-12-15 20:24 | PDOC H&P ---
History of Present Illness Admission Date/PCP: 12/15/18 19:10 UMBERTO ALVARADO MD Patient complains of: Feeling poorly including cough unresponsive to outpatient antibiotic therapy. He also reports that he has had poor appetite with nausea and more recently headaches. History of Present Illness: SETH WOODWARD is a 57 year old male with a history of bladder cancer, hyperlipidemia, myalgias, insomnia and depression. His unexpectedly on Mother's Day and 1 of his children was killed in a motor vehicle accident I believe last year. He states that he has not been feeling well for the last 3 to 4 weeks. He felt poorly over the last weekend and presented to an urgent care clinic. He was given doxycycline. He failed to improve. He now is experiencing shortness of breath and the feeling of being generally unwell. He has a congested cough but cannot mobilize secretions. Chest x-ray shows diffuse bilateral groundglass appearance. The patient does have an elevated white blood cell count. This is bilateral pneumonia or pneumonitis. He also complains of headache that is bilateral with scalp hyperesthesia. Patient was extremely restless in the exam room. He stated that he had to urinate. With his history of bladder cancer he reports that he develops urgency and discomfort quite quickly. The patient was referred to the hospital service for admission after being started on antibiotic therapy. Past Medical History Cardiac Medical History: Reports: Hyperlipidema Denies: Coronary Artery Disease Pulmonary Medical History: Reports: Bronchitis, Pneumonia Denies: Sleep Apnea EENT Medical History: Reports: None Neurological Medical History: Reports: None Endocrine Medical History: Denies: Diabetes Mellitus Type 1, Diabetes Mellitus Type 2 Renal/ Medical History: Denies: Chronic Kidney Disease, Nephrolithiasis Malignancy Medical History: Reports: Other - Bladder cancer GI Medical History: Denies: Cirrhosis, Gastroesophageal Reflux Disease, Hepatitis, Peptic Ulcer Disease Musculoskeltal Medical History: Reports: Arthritis, Other - Muscle spasm Denies: Gout Skin Medical History: Denies: Eczema, Psoriasis Psychiatric Medical History: Reports: Depression, General Anxiety Disorder Traumatic Medical History: Reports: None Hematology: Denies: Anemia, Bleeding Tendencies, Neutropenia Infectious Medical History: Reports: None Past Surgical History Past Surgical History: Reports: Tonsillectomy, Other - Dontrell fundoplication. Cystoscopies for bladder cancer treatment. Social History Information Source: Patient Lives with: Alone, Other - Patient is a . His unexpectedly on Mother's Day 2018. Smoking Status: Never Smoker Frequency of Alcohol Use: Occasional - Anywhere from 0-3 beers on a given day. Hx Recreational Drug Use: No Hx Prescription Drug Abuse: No - Advance Directive Resuscitation Status: Full Code Surrogate healthcare decision maker:: The patient does not have a dedicated decision maker. This is a very difficult discussion with the recent passing of his . Legally his children would be the next decision-makers. Family History Family History: CAD, Malignancy, Other - Dementia Parental Family History Reviewed: Yes - Father Lewy body dementia, cardiac m other & father. Mother breast cancer Children Family History Reviewed: Yes - Son killed in motor vehicle accident Sibling(s) Family History Reviewed.: Yes Medication/Allergy Home Medications: Amitriptyline HCl [Elavil 50 Mg Tablet] 50 mg PO QHS 12/15/18 Atorvastatin Calcium [Lipitor 20 mg Tablet] 20 mg PO DAILY 12/15/18 Cyclobenzaprine HCl [Flexeril 10 mg Tablet] 10 mg PO TIDP PRN 12/15/18 Meloxicam [Mobic] 7.5 mg PO BID 12/15/18 Allergies/Adverse Reactions: No Known Allergies Allergy (Verified 12/15/18 12:45) Review of Systems Constitutional: PRESENT: chills, fatigue, headache(s) Eyes: ABSENT: visual disturbances Ears: ABSENT: hearing changes Nose, Mouth, and Throat: PRESENT: headache(s). ABSENT: mouth pain, sore throat Cardiovascular: ABSENT: chest pain, edema, orthropnea, palpitations Respiratory: PRESENT: cough, dyspnea. ABSENT: hemoptysis, sputum Gastrointestinal: PRESENT: nausea, vomiting. ABSENT: abdominal pain, bloating, constipation, diarrhea, hematochezia, melena Genitourinary: PRESENT: other - Urgency due to history of bladder cancer. Likely bladder spasm and discomfort.. ABSENT: difficulty urinating, dysuria, hematuria Musculoskeletal: PRESENT: back pain. ABSENT: deformity, joint swelling Integumentary: ABSENT: diaphoresis, erythema, lesions, wounds Neurological: ABSENT: abnormal gait, abnormal speech, confusion, memory loss, syncope Psychiatric: PRESENT: anxiety, depression. ABSENT: hallucinations Endocrine: ABSENT: cold intolerance, heat intolerance, polydipsia, polyphagia Hematologic/Lymphatic: ABSENT: easy bleeding, easy bruising, lymphadenopathy Allergic/Immunologic: ABSENT: seasonal rhinorrhea Physical Exam Vital Signs: Temp Pulse Resp BP Pulse Ox 99.9 F 89 20 143/77 H 89 L 12/15/18 18:00 12/15/18 16:22 12/15/18 12:56 12/15/18 16:22 12/15/18 16:22 Intake & Output 12/14/18 12/15/18 12/16/18 06:59 06:59 06:59 Intake Total 3100 Balance 3100 Weight 79.7 kg General appearance: PRESENT: cooperative, mild distress - Mild to moderate distress. Extremely restless., well-developed Head exam: PRESENT: atraumatic, normocephalic Eye exam: PRESENT: conjunctiva pink. ABSENT: scleral icterus Ear exam: PRESENT: normal external ear exam Mouth exam: PRESENT: moist, tongue midline Teeth exam: PRESENT: poor dentation Neck exam: PRESENT: full ROM. ABSENT: carotid bruit, JVD, meningismus Respiratory exam: PRESENT: rales - Bilaterally, symmetrical, tachypnea. ABSENT: rhonchi, wheezes Cardiovascular exam: PRESENT: +S1, +S2, tachycardia - Sinus tachycardia GI/Abdominal exam: PRESENT: normal bowel sounds, soft. ABSENT: distended, tenderness Rectal exam: PRESENT: deferred Gentrourinary exam: ABSENT: indwelling catheter Extremities exam: ABSENT: joint swelling, pedal edema Musculoskeletal exam: PRESENT: ambulatory, normal inspection Neurological exam: PRESENT: alert, awake, oriented to person, oriented to place, oriented to time, oriented to situation, CN II-XII grossly intact Psychiatric exam: PRESENT: anxious, unusual affect. ABSENT: agitated Focused psych exam: PRESENT: pressured speech, restlessness. ABSENT: delusional Skin exam: PRESENT: dry, normal color, warm. ABSENT: rash Results Laboratory Results: 12/15/18 13:55 12/15/18 13:55 12/15/18 12/15/18 12/15/18 13:55 13:55 13:55 WBC 13.5 H RBC 3.76 L Hgb 11.6 L Hct 34.2 L MCV 91 MCH 30.8 MCHC 33.9 RDW 13.2 Plt Count 438 Seg Neutrophils % Not Reportable Lymphocytes % Not Reportable Monocytes % Not Reportable Eosinophils % Not Reportable Basophils % Not Reportable Absolute Neutrophils Not Reportable Absolute Lymphocytes Not Reportable Absolute Monocytes Not Reportable Absolute Eosinophils Not Reportable Absolute Basophils Not Reportable VBG pH VBG pCO2 VBG HCO3 VBG Base Excess Sodium 132.6 L Potassium 4.5 Chloride 92 L Carbon Dioxide 26 Anion Gap 15 BUN 11 Creatinine 0.93 Est GFR ( Amer) > 60 Est GFR (Non-Af Amer) > 60 Glucose 165 H Lactic Acid 1.3 Calcium 8.9 Total Bilirubin 1.6 H GGT AST 246 H Alkaline Phosphatase 213 H Total Protein 6.1 L Albumin 3.6 Lipase 65.7 Urine Color Urine Appearance Urine pH Ur Specific [place] Urine Protein Urine Glucose (UA) Urine Ketones Urine Blood Urine Nitrite Ur Leukocyte Esterase Urine WBC (Auto) Urine RBC (Auto) 12/15/18 12/15/18 12/15/18 13:55 13:55 16:30 WBC RBC Hgb Hct MCV MCH MCHC RDW Plt Count Seg Neutrophils % Lymphocytes % Monocytes % Eosinophils % Basophils % Absolute Neutrophils Absolute Lymphocytes Absolute Monocytes Absolute Eosinophils Absolute Basophils VBG pH 7.41 VBG pCO2 42.8 VBG HCO3 26.6 VBG Base Excess 1.6 Sodium Potassium Chloride Carbon Dioxide Anion Gap BUN Creatinine Est GFR ( Amer) Est GFR (Non-Af Amer) Glucose Lactic Acid Calcium Total Bilirubin GGT 231 H AST Alkaline Phosphatase Total Protein Albumin Lipase Urine Color YELLOW Urine Appearance CLEAR Urine pH 7.0 Ur Specific [place] 1.003 Urine Protein NEGATIVE Urine Glucose (UA) NEGATIVE Urine Ketones NEGATIVE Urine Blood NEGATIVE Urine Nitrite NEGATIVE Ur Leukocyte Esterase NEGATIVE Urine WBC (Auto) 1 Urine RBC (Auto) 1 12/15/18 13:55 Troponin I < 0.012 Impressions: Chest CT 12/15/18 00:00 IMPRESSION: Mediastinal and hilar lymphadenopathy.Diffuse interstitial - nodular and ground-glass opacities are present throughout both lungs, upper lobe predominance. No pleural effusion. IMPRESSION: Asymmetric thickening of the bladder wall, left side measures 8 mm thickness. Numerous areas of lymphadenopathy are seen in the external iliac and common iliac chains bilaterally, right greater than left. Chest X-Ray 12/15/18 13:10 IMPRESSION: There is diffuse patchy bilateral ground-glass pulmonary opacity, suggestive of edema or infection. Mild cardiomegaly. Head CT 12/15/18 15:18 IMPRESSION: NO ACUTE INTRACRANIAL FINDINGS. EVIDENCE OF ACUTE STROKE: NO. Soft Tissue Neck CT 12/15/18 15:18 IMPRESSION: Mild bilateral cervical level 4 and supraclavicular adenopathy. Coarse interstitial -nodular and ground-glass opacities throughout both upper lobes.Upper mediastinal adenopathy. Abdomen/Pelvis CT 12/15/18 15:19 IMPRESSION: Mediastinal and hilar lymphadenopathy.Diffuse interstitial - nodular and ground-glass opacities are present throughout both lungs, upper lobe predominance. No pleural effusion. IMPRESSION: Asymmetric thickening of the bladder wall, left side measures 8 mm thickness. Numerous areas of lymphadenopathy are seen in the external iliac and common iliac chains bilaterally, right greater than left. Assessment and Plan - Diagnosis (1) Pneumonia Qualifiers: Pneumonia type: due to unspecified organism Laterality: bilateral Lung location: unspecified part of lung Qualified Code(s): J18.9 - Pneumonia, unspecified organism Is this a current diagnosis for this admission?: Yes Plan: 12/15/2018-the patient has been feeling poorly for several weeks. The chest CT shows bilateral groundglass appearance with upper lobe predominance. This could be a viral pneumonitis. I will also check Legionella and mycoplasma studies. The patient will be placed on ceftriaxone and azithromycin. Oxygen if needed. (2) Leukocytosis Qualifiers: Leukocytosis type: unspecified Qualified Code(s): D72.829 - Elevated white blood cell count, unspecified Is this a current diagnosis for this admission?: Yes Plan: 12/15/2018-patient has an elevated white blood cell count with 97% neutrophils. No bands were observed. We will continue to monitor white blood cell count. (3) Fever Qualifiers: Fever type: due to other condition Qualified Code(s): R50.81 - Fever presenting with conditions classified elsewhere Is this a current diagnosis for this admission?: Yes Plan: 12/15/2018-acetaminophen will be available. In addition he is likely dry as he states his oral intake has been limited. He will receive ongoing IV fluids after the 1 L bolus given in the emergency department. (4) Severe depression Is this a current diagnosis for this admission?: Yes Plan: 12/15/2018-the patient is on Lexapro 20 mg daily however he stopped it abruptly because he thought it was not working. This was several days ago. I encouraged him to go back on Lexapro 10 mg daily and explained adverse reactions to abrupt cessation of this medication. In addition he would like to treat his depression with counseling. I have asked discharge planning to see the patient and provide mental health resources. He does use amitriptyline to help him sleep and this does have antidepressant qualities. (5) Transaminitis Is this a current diagnosis for this admission?: Yes Plan: 12/15/2018-the patient's transaminases are elevated. I did add a gamma-glutam yltransferase level as well. He reports anywhere from 0-3 beers a day but reports he can go several days without drinking. His did have a significant alcohol problem. During part of the conversation I got the impression that he drinks more than he lets on. I will review the studies. The CT scan did not show evidence of fatty liver infiltration or nodularity. (6) Hyperlipidemia Qualifiers: Hyperlipidemia type: unspecified Qualified Code(s): E78.5 - Hyperlipidemia, unspecified Is this a current diagnosis for this admission?: Yes Plan: 12/15/2018-continue atorvastatin. He does complain of muscle spasm and aches. If there is concern for myopathy from statin therapy we will check a creatinine kinase level. (7) Bladder wall thickening Is this a current diagnosis for this admission?: Yes Plan: 12/15/2018-the patient has a history of bladder cancer. He was first diagnosed in 2002. He underwent extensive treatment. He had a recurrence in 2014. A recent visit earlier this year with cystoscopy was reported to be negative for malignancy by his urologist. It is difficult to know the exact anatomy of the bladder post treatment. I will defer this to outpatient follow-up. - Time Time Spent with patient: 35 or more minutes Medications reviewed and adjusted accordingly: Yes Anticipated discharge: Home - Inpatient Certification Based on my medical assessment, after consideration of the patient's comorbidities, presenting symptoms, or acuity I expect that the services needed warrant INPATIENT care.: Yes I certify that my determination is in accordance with my understanding of Medicare's requirements for reasonable and necessary INPATIENT services [42 CFR 412.3e].: Yes Medical Necessity: Need For IV Fluids, Need for IV Antibiotics Post Hospital Care: D/C Ramp Boss Documentation
[2018-12-15] MEDS: ENOXAPARIN SODIUM INJ 40 MG/0.4 ML DISP.SYRIN SUBCUT SCH (22:04)
[2018-12-15] MEDS: GUAIFENESIN 600 MG TABLET.SA PO SCH (22:04)
[2018-12-15] MEDS: KETOROLAC TROMETHAMINE INJ/PF 30 MG/1 ML SDV IV PRN (22:05)
[2018-12-15] MEDS ORDERED: DIAZEPAM INJ 10 MG/2 ML DISP.SYRIN ONE (23:52)
[2018-12-16] MEDS ORDERED: CHLORPROMAZINE HCL INJ 25 MG/1 ML AMPULE ONE (00:01)
[2018-12-16] MEDS: DIAZEPAM INJ 10 MG/2 ML DISP.SYRIN IV PRN ×10 (00:11→21:54)
[2018-12-16] MEDS: CHLORPROMAZINE HCL INJ 25 MG/1 ML AMPULE IV PRN (00:12)
[2018-12-16] MEDS ORDERED: DEXMEDETOMIDINE IN 0.9 % NACL 400 MCG/100 ML RTUPB IV ONE ×4 (01:22→09:43)
[2018-12-16] MEDS: DEXMEDETOMIDINE IN NS 400 MCG/100 ML RTUPB IV PRN ×2 (01:25→09:30)
--- NOTE | 2018-12-16 01:43 | Progress Note ---
Provider Note Provider Note: Critical care note: 12/15/2018 Critical care onset time: 23:47 12/15/2018 Critical care problem: I was notified by the nursing staff that the patient had become very agitated, was hallucinating and extremely restless. I ordered Valium 10 mg IV x1 and chlorpromazine 25 mg IV x1 immediately and went to see the patient. Patient was noted to be very agitated and despite four-point restraints was difficult to evaluate due to his severe restlessness and inability/resistance to follow commands or comply with instructions. Patient became somewhat verbally abusive and combative despite medication. An additional 10 mg of Valium was given with little or no change in the patient's demeanor or level of consciousness. Patient was subsequently transferred to the ICU for treatment with Precedex. Critical care end time: 01:42 12/16/2018 Total (in room) critical care time: 26 minutes
[2018-12-16] MEDS ORDERED: ACETAMINOPHEN 650 MG SUPP.RECT PR ONE (03:08)
[2018-12-16] MEDS: ACETAMINOPHEN 650 MG SUPP.RECT PR PRN ×3 (03:10→22:09)
[2018-12-16] MEDS ORDERED: HALOPERIDOL LACTATE INJ 5 MG/1 ML VIAL ONE (03:14)
[2018-12-16] MEDS: HALOPERIDOL LACTATE INJ 5 MG/1 ML VIAL IV PRN ×2 (03:15→05:20)
[2018-12-16 03:44] LABS: ABSOLUTE BASOPHILS # (AUTO) 0.1 10^3/uL (0.0-0.2); ABSOLUTE LYMPHOCYTES (AUTO) 0.8 10^3/uL (0.5-4.7); ABSOLUTE MONOCYTES (AUTO) 0.4 10^3/uL (0.1-1.4); ABSOLUTE NEUT (AUTO) 12.3 10^3/uL (1.7-8.2); BASOPHILS % (AUTO) 0.4 % (0-2); EOSINOPHILS % (AUTO) 0.2 % (0-6); HEMATOCRIT 32.6 % (37.9-51.0); MEAN CORPUSCULAR HEMOGLOBIN 31.1 pg (27.0-33.4); MEAN CORPUSCULAR HGB CONC 33.8 g/dL (32.0-36.0); MEAN CORPUSCULAR VOLUME 92 fl (80-97); MONOCYTES % (AUTO) 2.8 % (3-13); PLATELET COUNT 379 10^3/uL (150-450); RED BLOOD COUNT 3.54 10^6/uL (4.35-5.55); RED CELL DISTRIBUTION WIDTH 13.4 % (11.5-14.0); SEGMENTED NEUTROPHILS % (AUTO) 90.6 % (42-78); TOTAL CELLS COUNTED % (AUTO) 100 %; WHITE BLOOD COUNT 13.6 10^3/uL (4.0-10.5)
[2018-12-16] MEDS: RINGERS SOLUTION,LACTATED 1,000 ML IV PRN ×2 (04:01→10:45)
[2018-12-16 04:07] LABS: URINE AMPHETAMINES SCREEN NEGATIVE; URINE BARBITURATES SCREEN NEGATIVE; URINE COCAINE SCREEN NEGATIVE; URINE METHADONE SCREEN NEGATIVE; URINE PHENCYCLIDINE SCREEN NEGATIVE
[2018-12-16 04:10] LABS: URINE BENZODIAZEPINES SCREEN UNCONFIRMED POSITIVE; URINE MARIJUANA (THC) SCREEN UNCONFIRMED POSITIVE
[2018-12-16 04:15] LABS: ALKALINE PHOSPHATASE 177 U/L (38-126); ANION GAP 12 (5-19); ASPARTATE AMINO TRANSFERASE 197 U/L (17-59); BILIRUBIN,TOTAL 1.2 mg/dL (0.2-1.3); BLOOD UREA NITROGEN 10 mg/dL (7-20); CALCIUM 8.1 mg/dL (8.4-10.2); CARBON DIOXIDE 22 mmol/L (22-30); CHLORIDE 103 mmol/L (98-107); GLUCOSE 133 mg/dL (75-110); POTASSIUM 4.5 mmol/L (3.6-5.0); TOTAL PROTEIN 5.4 g/dL (6.3-8.2)
[2018-12-16] MEDS ORDERED: PANTOPRAZOLE SODIUM 20 MG TABLET.DR PO SCH (06:00)
[2018-12-16 07:46] LABS: ARTERIAL BLOOD H2CO3 1.11 mmol/L (1.05-1.35); ARTERIAL BLOOD HCO3 22.4 mmol/L (20-24); ARTERIAL BLOOD O2 SATURATION 97.7 % (94-98); ARTERIAL BLOOD PO2 101.5 mmHg (80-100); ARTERIAL BLOOD TOTAL CO2 23.5 mmol/L (23-27)
[2018-12-16 07:47] LABS: ARTERIAL BLOOD FIO2 15L
[2018-12-16] MEDS ORDERED: PHARMACY COMMUNICATION ORDER MC NR ×2 (09:30→09:45)
[2018-12-16] MEDS ORDERED: PROPOFOL 1,000 MG/100 ML INFUS..BTL IV ONE ×2 (09:35→11:23)
[2018-12-16] MEDS: PROPOFOL 1,000 MG/100 ML INFUS..BTL IV PRN ×4 (09:45→20:41)
--- NOTE | 2018-12-16 09:52 | PDOC PROGRESS REPORT ---
Subjective Progress Note for:: 12/16/18 Subjective:: 57 year old male with a history of bladder cancer, hyperlipidemia, myalgias, insomnia and depression. His unexpectedly on Mother's Day and 1 of his children was killed in a motor vehicle accident I believe last year. He states that he has not been feeling well for the last 3 to 4 weeks. He felt poorly over the last weekend and presented to an urgent care clinic. He was given doxycycline. He failed to improve. He now is experiencing shortness of breath and the feeling of being generally unwell. He has a congested cough but cannot mobilize secretions. Chest x-ray shows diffuse bilateral groundglass appearance. The patient does have an elevated white blood cell count. This is bilateral pneumonia or pneumonitis. He also complains of headache that is bilateral with scalp hyperesthesia. Patient was extremely restless in the exam room. He stated that he had to urinate. With his history of bladder cancer he reports that he develops urgency and discomfort quite quickly. The patient was referred to the hospital service for admission after being started on antibiotic therapy. 12/16/2018- pt is on non- rebreather.. tachypnic , tachycardic agigated .. need may trach protection probably need ventilation. to start on ativan iv drip for sedation. transferred to icu last night for agitation and for agrresive behaviour. Reason For Visit: PNEUMONIA, ANXIETY WITH DEPRESSION Physical Exam Vital Signs: Temp Pulse Resp BP Pulse Ox 98.6 F 65 35 H 110/69 97 12/16/18 08:00 12/16/18 08:00 12/16/18 08:00 12/16/18 08:00 12/16/18 08:00 Intake & Output 12/15/18 12/16/18 12/17/18 06:59 06:59 06:59 Intake Total 4171 29 Output Total 275 45 Balance 3896 -16 Weight 84.1 kg General appearance: PRESENT: no acute distress Head exam: PRESENT: atraumatic Eye exam: PRESENT: PERRLA Mouth exam: PRESENT: dry mucosa Teeth exam: PRESENT: poor dentation Neck exam: ABSENT: carotid bruit, JVD, lymphadenopathy, thyromegaly Respiratory exam: PRESENT: tachypnea, other - Labored breathing Cardiovascular exam: PRESENT: tachycardia GI/Abdominal exam: PRESENT: normal bowel sounds, soft. ABSENT: distended, guarding, mass, organolmegaly, rebound, tenderness Rectal exam: PRESENT: deferred Extremities exam: PRESENT: full ROM. ABSENT: calf tenderness, clubbing, pedal edema Neurological exam: PRESENT: alert, awake, oriented to person, oriented to place, oriented to time, oriented to situation, CN II-XII grossly intact. ABSENT: motor sensory deficit Psychiatric exam: PRESENT: appropriate affect, normal mood. ABSENT: homicidal ideation, suicidal ideation Results Laboratory Results: 12/16/18 03:24 12/16/18 03:24 12/15/18 12/15/18 12/15/18 13:55 13:55 13:55 WBC 13.5 H RBC 3.76 L Hgb 11.6 L Hct 34.2 L MCV 91 MCH 30.8 MCHC 33.9 RDW 13.2 Plt Count 438 Seg Neutrophils % Not Reportable Lymphocytes % Not Reportable Monocytes % Not Reportable Eosinophils % Not Reportable Basophils % Not Reportable Absolute Neutrophils Not Reportable Absolute Lymphocytes Not Reportable Absolute Monocytes Not Reportable Absolute Eosinophils Not Reportable Absolute Basophils Not Reportable Carbonic Acid HCO3/H2CO3 Ratio ABG pH ABG pCO2 ABG pO2 ABG HCO3 ABG O2 Saturation ABG Base Excess VBG pH VBG pCO2 VBG HCO3 VBG Base Excess FiO2 Sodium 132.6 L Potassium 4.5 Chloride 92 L Carbon Dioxide 26 Anion Gap 15 BUN 11 Creatinine 0.93 Est GFR ( Amer) > 60 Est GFR (Non-Af Amer) > 60 Glucose 165 H Lactic Acid 1.3 Calcium 8.9 Magnesium Total Bilirubin 1.6 H GGT AST 246 H Alkaline Phosphatase 213 H Total Protein 6.1 L Albumin 3.6 Lipase 65.7 Urine Color Urine Appearance Urine pH Ur Specific [place] Urine Protein Urine Glucose (UA) Urine Ketones Urine Blood Urine Nitrite Ur Leukocyte Esterase Urine WBC (Auto) Urine RBC (Auto) 12/15/18 12/15/18 12/15/18 13:55 13:55 16:30 WBC RBC Hgb Hct MCV MCH MCHC RDW Plt Count Seg Neutrophils % Lymphocytes % Monocytes % Eosinophils % Basophils % Absolute Neutrophils Absolute Lymphocytes Absolute Monocytes Absolute Eosinophils Absolute Basophils Carbonic Acid HCO3/H2CO3 Ratio ABG pH ABG pCO2 ABG pO2 ABG HCO3 ABG O2 Saturation ABG Base Excess VBG pH 7.41 VBG pCO2 42.8 VBG HCO3 26.6 VBG Base Excess 1.6 FiO2 Sodium Potassium Chloride Carbon Dioxide Anion Gap BUN Creatinine Est GFR ( Amer) Est GFR (Non-Af Amer) Glucose Lactic Acid Calcium Magnesium Total Bilirubin GGT 231 H AST Alkaline Phosphatase Total Protein Albumin Lipase Urine Color YELLOW Urine Appearance CLEAR Urine pH 7.0 Ur Specific [place] 1.003 Urine Protein NEGATIVE Urine Glucose (UA) NEGATIVE Urine Ketones NEGATIVE Urine Blood NEGATIVE Urine Nitrite NEGATIVE Ur Leukocyte Esterase NEGATIVE Urine WBC (Auto) 1 Urine RBC (Auto) 1 12/16/18 12/16/18 12/16/18 03:24 03:24 07:30 WBC 13.6 H RBC 3.54 L Hgb 11.0 L Hct 32.6 L MCV 92 MCH 31.1 MCHC 33.8 RDW 13.4 Plt Count 379 Seg Neutrophils % 90.6 H Lymphocytes % 6.0 L Monocytes % 2.8 L Eosinophils % 0.2 Basophils % 0.4 Absolute Neutrophils 12.3 H Absolute Lymphocytes 0.8 Absolute Monocytes 0.4 Absolute Eosinophils 0.0 Absolute Basophils 0.1 Carbonic Acid 1.11 HCO3/H2CO3 Ratio 20:1 ABG pH 7.40 ABG pCO2 37.0 ABG pO2 101.5 H ABG HCO3 22.4 ABG O2 Saturation 97.7 ABG Base Excess -2.0 VBG pH VBG pCO2 VBG HCO3 VBG Base Excess FiO2 15L Sodium 136.8 L Potassium 4.5 Chloride 103 Carbon Dioxide 22 Anion Gap 12 BUN 10 Creatinine 0.98 Est GFR ( Amer) > 60 Est GFR (Non-Af Amer) > 60 Glucose 133 H Lactic Acid Calcium 8.1 L Magnesium 1.8 Total Bilirubin 1.2 GGT 201 H AST 197 H Alkaline Phosphatase 177 H Total Protein 5.4 L Albumin 3.0 L Lipase Urine Color Urine Appearance Urine pH Ur Specific [place] Urine Protein Urine Glucose (UA) Urine Ketones Urine Blood Urine Nitrite Ur Leukocyte Esterase Urine WBC (Auto) Urine RBC (Auto) 12/15/18 13:55 Troponin I < 0.012 Impressions: Chest CT 12/15/18 00:00 IMPRESSION: Mediastinal and hilar lymphadenopathy.Diffuse interstitial - nodular and ground-glass opacities are present throughout both lungs, upper lobe predominance. No pleural effusion. IMPRESSION: Asymmetric thickening of the bladder wall, left side measures 8 mm thickness. Numerous areas of lymphadenopathy are seen in the external iliac and common iliac chains bilaterally, right greater than left. Chest X-Ray 12/15/18 13:10 IMPRESSION: There is diffuse patchy bilateral ground-glass pulmonary opacity, suggestive of edema or infection. Mild cardiomegaly. Head CT 12/15/18 15:18 IMPRESSION: NO ACUTE INTRACRANIAL FINDINGS. EVIDENCE OF ACUTE STROKE: NO. Soft Tissue Neck CT 12/15/18 15:18 IMPRESSION: Mild bilateral cervical level 4 and supraclavicular adenopathy. Coarse interstitial -nodular and ground-glass opacities throughout both upper lobes.Upper mediastinal adenopathy. Abdomen/Pelvis CT 12/15/18 15:19 IMPRESSION: Mediastinal and hilar lymphadenopathy.Diffuse interstitial - nodular and ground-glass opacities are present throughout both lungs, upper lobe predominance. No pleural effusion. IMPRESSION: Asymmetric thickening of the bladder wall, left side measures 8 mm thickness. Numerous areas of lymphadenopathy are seen in the external iliac and common iliac chains bilaterally, right greater than left. Assessment and Plan - Diagnosis (1) Pneumonia Qualifiers: Pneumonia type: due to unspecified organism Laterality: bilateral Lung location: unspecified part of lung Qualified Code(s): J18.9 - Pneumonia, un specified organism Is this a current diagnosis for this admission?: Yes Plan: 12/15/2018-the patient has been feeling poorly for several weeks. The chest CT shows bilateral groundglass appearance with upper lobe predominance. This could be a viral pneumonitis. I will also check Legionella and mycoplasma studies. The patient will be placed on ceftriaxone and azithromycin. Oxygen if needed. 12/16/2018-patient's WBC count today is 13,600 blood cultures are negative so far. Plan is to continue his antibiotic therapy azithromycin and ceftriaxone so far the cultures are negative. Patient is going to be intubated to protect the airway and prevent aspiration. (2) Alcohol abuse Is this a current diagnosis for this admission?: Yes Plan: 12/16/2018-patient has history of heavy alcohol abuse looks like he is going to going through the withdrawal last night he was very much agitated verbally abusive to the nurses he was given several doses of Valium without any improve ment he is also received Haldol and it helped him a letter and he was brought to the ICU and started on Precedex last night. This morning is tachypneic and nonrebreather tachycardic and again getting agitated verbally aggressive. To protect the airway we could not intubate the patient. To put a Dorantes's catheter NG tube banana bag orders were placed. Follow-up chest x-ray since ABGs are requested. We are going to continue to closely monitor his respiratory status. Patient is going to be on Ativan IV drip for sedation. (3) Severe depression Is this a current diagnosis for this admission?: Yes Plan: 12/15/2018-the patient is on Lexapro 20 mg daily however he stopped it abruptly because he thought it was not working. This was several days ago. I encouraged him to go back on Lexapro 10 mg daily and explained adverse reactions to abrupt cessation of this medication. In addition he would like to treat his depression with counseling. I have asked discharge planning to see the patient and provide mental health resources. He does use amitriptyline to help him sleep and this does have antidepressant qualities. 12/16/2018-patient has history of severe depression not on a psych medications at this point. Psych consult was requested. (4) Transaminitis Is this a current diagnosis for this admission?: Yes Plan: 12/15/2018-the patient's transaminases are elevated. I did add a gamma- glutamyltransferase level as well. He reports anywhere from 0-3 beers a day but reports he can go several days without drinking. His did have a significant alcohol problem. During part of the conversation I got the impression that he drinks more than he lets on. I will review the studies. The CT scan did not show evidence of fatty liver infiltration or nodularity. 12/16/2018-elevated liver enzymes most likely secondary to heavy alcohol abuse and liver injury. Plan is to check for hepatitis profile. (5) Respiratory distress Is this a current diagnosis for this admission?: Yes Plan: 12/16/2018-patient is getting treatment for pneumonitis. 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 We are going to intubate him today to protect the airway. Maybe he is developing into acute respiratory failure most likely secondary to underlying pneumonia. Consultation with Dr. Guzman is going to be requested. - Time Time Spent with patient: 25-34 minutes Medications reviewed and adjusted accordingly: Yes Anticipated discharge: Home
[2018-12-16] MEDS ORDERED: ROCURONIUM BROMIDE INJ 50 MG/5 ML VIAL IV ONE (09:54)
[2018-12-16] MEDS ORDERED: CEFTRIAXONE 1 GM/D5W RTU 50 ML IV SCH (10:00)
[2018-12-16] MEDS ORDERED: ATORVASTATIN CALCIUM 20 MG TABLET PO SCH (10:00)
[2018-12-16] MEDS: GUAIFENESIN 600 MG TABLET.SA PO SCH (10:13)
[2018-12-16] MEDS: LORAZEPAM 24 MG/240 ML BAG IV PRN ×4 (10:55→23:50)
[2018-12-16] MEDS ORDERED: PANTOPRAZOLE SODIUM 40 MG PACKET.DR NG ONE (11:00)
[2018-12-16 12:23] LABS: ARTERIAL BLOOD BASE EXCESS -7.8 mmol/L; ARTERIAL BLOOD H2CO3 1.07 mmol/L (1.05-1.35); ARTERIAL BLOOD HCO3 17.6 mmol/L (20-24); ARTERIAL BLOOD O2 SATURATION 95.5 % (94-98); ARTERIAL BLOOD PCO2 35.5 mmHg (35-45); ARTERIAL BLOOD PH 7.31 (7.35-7.45); ARTERIAL BLOOD PO2 83.5 mmHg (80-100); ARTERIAL BLOOD TOTAL CO2 18.7 mmol/L (23-27)
[2018-12-16 12:24] LABS: ARTERIAL BLOOD FIO2 60%
[2018-12-16] MEDS: DEXTROSE 5%-1/2 NORMAL SALINE 1,000 ML IV PRN (13:30)
[2018-12-16] MEDS: ENOXAPARIN SODIUM INJ 40 MG/0.4 ML DISP.SYRIN SUBCUT SCH (13:59)
[2018-12-16] MEDS: GUAIFENESIN SYRP 200 MG/10 ML UDC NG SCH ×3 (13:59→21:55)
--- NOTE | 2018-12-16 14:25 | RADIOLOGY REPORT (SQ) ---
EXAM DESCRIPTION: CHEST SINGLE VIEW COMPLETED DATE/TIME: 12/16/2018 11:28 am REASON FOR STUDY: resp failure COMPARISON: 12/15/2017 EXAM PARAMETERS: NUMBER OF VIEWS: One view. TECHNIQUE: Single frontal radiographic view of the chest acquired. RADIATION DOSE: NA LIMITATIONS: None. FINDINGS: LUNGS AND PLEURA: Significantly increased pulmonary edema. MEDIASTINUM AND HILAR STRUCTURES: No masses. Contour normal. HEART AND VASCULAR STRUCTURES: Cardiomegaly. BONES: No acute findings. HARDWARE: Endotracheal tube is present with its tip 6 cm above the mark. An NG tube extends to the level of the gastroesophageal junction. OTHER: No other significant finding. IMPRESSION: Increased pulmonary edema. Cardiomegaly. Life lines as described. TECHNICAL DOCUMENTATION: JOB ID: [id number] [employer]- All Rights Reserved Reading location - IP/workstation name: [email or web address]
--- NOTE | 2018-12-16 14:27 | RADIOLOGY REPORT (SQ) ---
EXAM DESCRIPTION: KUB/ABDOMEN (SINGLE VIEW) COMPLETED DATE/TIME: 12/16/2018 11:28 am REASON FOR STUDY: Check Placement of NG Tube COMPARISON: None. NUMBER OF VIEWS: One view. TECHNIQUE: Supine radiographic image of the abdomen acquired. LIMITATIONS: None. FINDINGS: BOWEL GAS PATTERN: Normal bowel gas pattern. No dilated loops. CALCIFICATIONS: No suspicious calcifications. SOFT TISSUES: No gross mass or suggestion of organomegaly. HARDWARE: NG tube extends to the gastroesophageal junction. BONES: No acute fracture. No worrisome bone lesions. OTHER: No other significant finding. IMPRESSION: An NG tube extends to the gastroesophageal junction. TECHNICAL DOCUMENTATION: JOB ID: [id number] [employer]- All Rights Reserved Reading location - IP/workstation name: [email or web address]
[2018-12-16] MEDS: AZITHROMYCIN 500 MG in DEXTROSE 5%-WATER 250 ML IV SCH (17:58)
[2018-12-16] MEDS: CEFTRIAXONE SODIUM 1,000 MG in DEXTROSE 5%-WATER 50 ML IV SCH (17:59)
[2018-12-16] MEDS: NORMAL SALINE 1000 ML 1,000 ML with POTASSIUM CHLORIDE 20 MEQ, MAGNESIUM SULFATE 8 MEQ,... IV SCH ×5 (17:59)
[2018-12-16] MEDS: PANTOPRAZOLE SODIUM 40 MG VIAL IV SCH (18:50)
[2018-12-16] MEDS: ATORVASTATIN CALCIUM 20 MG TABLET NG SCH (21:55)
[2018-12-17] MEDS: PROPOFOL 1,000 MG/100 ML INFUS..BTL IV PRN ×5 (02:21→22:59)
[2018-12-17] MEDS: DEXTROSE 5%-1/2 NORMAL SALINE 1,000 ML IV PRN ×2 (02:55→17:26)
[2018-12-17] MEDS: GUAIFENESIN SYRP 200 MG/10 ML UDC NG SCH ×6 (02:59→22:57)
[2018-12-17] MEDS: ACETAMINOPHEN 650 MG SUPP.RECT PR PRN (03:12)
[2018-12-17 04:20] LABS: HEMATOCRIT 28.5 % (37.9-51.0); HEMOGLOBIN 9.5 g/dL (13.5-17.0); MEAN CORPUSCULAR HEMOGLOBIN 30.8 pg (27.0-33.4); MEAN CORPUSCULAR HGB CONC 33.2 g/dL (32.0-36.0); MEAN CORPUSCULAR VOLUME 93 fl (80-97); PLATELET COUNT 378 10^3/uL (150-450); RED BLOOD COUNT 3.08 10^6/uL (4.35-5.55); RED CELL DISTRIBUTION WIDTH 13.6 % (11.5-14.0); WHITE BLOOD COUNT 11.4 10^3/uL (4.0-10.5)
[2018-12-17 04:28] LABS: ALBUMIN 2.3 g/dL (3.5-5.0); ALKALINE PHOSPHATASE 138 U/L (38-126); ANION GAP 8 (5-19); ASPARTATE AMINO TRANSFERASE 116 U/L (17-59); BILIRUBIN,DIRECT 0.5 mg/dL (0.0-0.4); BILIRUBIN,TOTAL 0.5 mg/dL (0.2-1.3); BLOOD UREA NITROGEN 9 mg/dL (7-20); CALCIUM 7.6 mg/dL (8.4-10.2); CARBON DIOXIDE 22 mmol/L (22-30); CHLORIDE 103 mmol/L (98-107); GLUCOSE 139 mg/dL (75-110); POTASSIUM 4.1 mmol/L (3.6-5.0); TOTAL PROTEIN 4.4 g/dL (6.3-8.2)
[2018-12-17] MEDS: LORAZEPAM 24 MG/240 ML BAG IV PRN ×4 (04:40→20:12)
[2018-12-17 04:54] LABS: ABSOLUTE LYMPHOCYTES# (MANUAL) 0.6 10^3/uL (0.5-4.7); ABSOLUTE MONOCYTES # (MANUAL) 0.6 10^3/uL (0.1-1.4); BAND NEUTROPHILS % (MANUAL) 1 % (3-5); BASOPHILS % (MANUAL) 0 % (0-2); EOSINOPHILS % (MANUAL) 0 % (0-6); LYMPHOCYTES % (MANUAL) 4 % (13-45); MONOCYTES % (MANUAL) 5 % (3-13); SEGMENTED NEUTROPHILS % (MAN) 89 % (42-78); TOTAL CELLS COUNTED 100
[2018-12-17 04:55] LABS: HYPOCHROMASIA 1+; PLATELET COMMENT ADEQUATE; POLYCHROMASIA SLIGHT
[2018-12-17 04:59] LABS: ARTERIAL BLOOD BASE EXCESS -2.6 mmol/L; ARTERIAL BLOOD H2CO3 0.93 mmol/L (1.05-1.35); ARTERIAL BLOOD HCO3 20.9 mmol/L (20-24); ARTERIAL BLOOD O2 SATURATION 97.1 % (94-98); ARTERIAL BLOOD PH 7.45 (7.35-7.45); ARTERIAL BLOOD PO2 87.4 mmHg (80-100); ARTERIAL BLOOD TOTAL CO2 21.8 mmol/L (23-27)
[2018-12-17] MEDS ORDERED: ACETAMINOPHEN SOLN 325 MG/10.15 ML UDCUP ONE (05:52)
[2018-12-17] MEDS: ACETAMINOPHEN SOLN 325 MG/10.15 ML UDCUP NG PRN ×3 (05:57→17:49)
--- NOTE | 2018-12-17 09:04 | RADIOLOGY REPORT (SQ) ---
EXAM DESCRIPTION: CHEST SINGLE VIEW COMPLETED DATE/TIME: 12/17/2018 6:40 am REASON FOR STUDY: resp failure COMPARISON: 12/16/2018 EXAM PARAMETERS: NUMBER OF VIEWS: One view TECHNIQUE: Single frontal radiograph of the chest. RADIATION DOSE: N/A LIMITATIONS: None. FINDINGS: TEMPORARY SUPPORT DEVICES:ETT in expected location. NG tube courses below the piyush-diaphr agm in to the stomach. LUNGS AND PLEURA: Marked improvement in the generalize opacities. Persistent opacities at the bases. No effusions. No masses. No pneumothorax. MEDIASTINUM AND HILAR STRUCTURES: No masses. Contour normal. HEART AND VASCULAR STRUCTURES: Heart normal in size. normal vascularity. Aorta normal for age. BONES: No acute findings. OTHER: No other significant finding. IMPRESSION: Marked improved aeration residual basilar opacities. SUPPORT DEVICE(S) IN EXPECTED LOCATIONS. TECHNICAL DOCUMENTATION: JOB ID: [id number] [employer]- All Rights Reserved Reading location - IP/workstation name: [email or web address]
--- NOTE | 2018-12-17 09:14 | PDOC PROGRESS REPORT ---
Subjective Progress Note for:: 12/17/18 Subjective:: 57 year old male with a history of bladder cancer, hyperlipidemia, myalgias, insomnia and depression. His unexpectedly on Mother's Day and 1 of his children was killed in a motor vehicle accident I believe last year. He states that he has not been feeling well for the last 3 to 4 weeks. He felt poorly over the last weekend and presented to an urgent care clinic. He was given doxycycline. He failed to improve. He now is experiencing shortness of breath and the feeling of being generally unwell. He has a congested cough but cannot mobilize secretions. Chest x-ray shows diffuse bilateral groundglass appearance. The patient does have an elevated white blood cell count. This is bilateral pneumonia or pneumonitis. He also complains of headache that is bilateral with scalp hyperesthesia. Patient was extremely restless in the exam room. He stated that he had to urinate. With his history of bladder cancer he reports that he develops urgency and discomfort quite quickly. The patient was referred to the hospital service for admission after being started on antibiotic therapy. 12/16/2018- pt is on non- rebreather.. tachypnic , tachycardic agigated .. need may trach protection probably need ventilation. to start on ativan iv drip for sedation. transferred to icu last night for agitation and for agrresive behaviour. 12/17/[id number]-kuuv-old male with multiple medical problems including bladder cancer, hyperlipidemia, anxiety, depression, alcohol abuse admitted for not feeling well and he went to the urgent care he was given doxycycline failed to improve came to the ER with complaints of increasing shortness of breath and not feeling well the chest x-ray suggestive of diffuse groundglass appearance and pneumonitis. He is getting antibiotic therapy chest x-ray done this morning indicates patchy infiltrates in the right side he had a T-max of 102 last night. Presently on azithromycin and ceftriaxone. He was intubated yesterday as a prophylactic measure to protect the airway. Reason For Visit: PNEUMONIA, ANXIETY WITH DEPRESSION Physical Exam Vital Signs: Temp Pulse Resp BP Pulse Ox 100.0 F 80 24 H 130/82 H 97 12/17/18 08:00 12/17/18 08:40 12/17/18 08:40 12/17/18 08:00 12/17/18 08:40 Intake & Output 12/16/18 12/17/18 12/18/18 06:59 06:59 06:59 Intake Total 4171 4687 Output Total 445 1745 250 Balance 3896 2942 -250 Weight 84.1 kg 88 kg General appearance: PRESENT: no acute distress, other - pt is under sedation and intubated. Head exam: PRESENT: atraumatic Eye exam: PRESENT: PERRLA, other - Ulcer constricted but reactive. Mouth exam: PRESENT: moist, tongue midline Teeth exam: PRESENT: poor dentation Neck exam: ABSENT: carotid bruit, JVD, lymphadenopathy, thyromegaly Respiratory exam: PRESENT: decreased breath sounds Cardiovascular exam: PRESENT: RRR. ABSENT: diastolic murmur, rubs, systolic murmur GI/Abdominal exam: PRESENT: normal bowel sounds, soft, other - nG-tube in place.. ABSENT: distended, guarding, mass, organolmegaly, rebound, tenderness Rectal exam: PRESENT: deferred Gentrourinary exam: PRESENT: indwelling catheter Extremities exam: PRESENT: full ROM. ABSENT: calf tenderness, clubbing, pedal edema Neurological exam: PRESENT: other - Is under sedation and intubated. Results Laboratory Results: 12/17/18 03:51 12/17/18 03:51 12/16/18 12/17/18 12/17/18 12:10 03:51 03:51 WBC 11.4 H RBC 3.08 L Hgb 9.5 L Hct 28.5 L MCV 93 MCH 30.8 MCHC 33.2 RDW 13.6 Plt Count 378 Seg Neutrophils % Not Reportable Lymphocytes % Not Reportable Monocytes % Not Reportable Eosinophils % Not Reportable Basophils % Not Reportable Absolute Neutrophils Not Reportable Absolute Lymphocytes Not Reportable Absolute Monocytes Not Reportable Absolute Eosinophils Not Reportable Absolute Basophils Not Reportable Carbonic Acid 1.07 HCO3/H2CO3 Ratio 16:1 ABG pH 7.31 L ABG pCO2 35.5 ABG pO2 83.5 ABG HCO3 17.6 L ABG O2 Saturation 95.5 ABG Base Excess -7.8 FiO2 60% Sodium 133.1 L Potassium 4.1 Chloride 103 Carbon Dioxide 22 Anion Gap 8 BUN 9 Creatinine 0.78 Est GFR ( Amer) > 60 Est GFR (Non-Af Amer) > 60 Glucose 139 H Calcium 7.6 L Magnesium 2.2 Total Bilirubin 0.5 AST 116 H Alkaline Phosphatase 138 H Total Protein 4.4 L Albumin 2.3 L 12/17/18 04:00 WBC RBC Hgb Hct MCV MCH MCHC RDW Plt Count Seg Neutrophils % Lymphocytes % Monocytes % Eosinophils % Basophils % Absolute Neutrophils Absolute Lymphocytes Absolute Monocytes Absolute Eosinophils Absolute Basophils Carbonic Acid 0.93 L HCO3/H2CO3 Ratio 22:1 ABG pH 7.45 ABG pCO2 31.0 L ABG pO2 87.4 ABG HCO3 20.9 ABG O2 Saturation 97.1 ABG Base Excess -2.6 FiO2 55% Sodium Potassium Chloride Carbon Dioxide Anion Gap BUN Creatinine Est GFR ( Amer) Est GFR (Non-Af Amer) Glucose Calcium Magnesium Total Bilirubin AST Alkaline Phosphatase Total Protein Albumin 12/15/18 13:55 Troponin I < 0.012 Impressions: Chest CT 12/15/18 00:00 IMPRESSION: Mediastinal and hilar lymphadenopathy.Diffuse interstitial - nodular and ground-glass opacities are present throughout both lungs, upper lobe predominance. No pleural effusion. IMPRESSION: Asymmetric thickening of the bladder wall, left side measures 8 mm thickness. Numerous areas of lymphadenopathy are seen in the external iliac and common iliac chains bilaterally, right greater than left. Head CT 12/15/18 15:18 IMPRESSION: NO ACUTE INTRACRANIAL FINDINGS. EVIDENCE OF ACUTE STROKE: NO. Soft Tissue Neck CT 12/15/18 15:18 IMPRESSION: Mild bilateral cervical level 4 and supraclavicular adenopathy. Coarse interstitial -nodular and ground-glass opacities throughout both upper lobes.Upper mediastinal adenopathy. Abdomen/Pelvis CT 12/15/18 15:19 IMPRESSION: Mediastinal and hilar lymphadenopathy.Diffuse interstitial - nodular and ground-glass opacities are present throughout both lungs, upper lobe predominance. No pleural effusion. IMPRESSION: Asymmetric thickening of the bladder wall, left side measures 8 mm thickness. Numerous areas of lymphadenopathy are seen in the external iliac and common iliac chains bilaterally, right greater than left. KUB X-Ray 12/16/18 09:36 IMPRESSION: An NG tube extends to the gastroesophageal junction. Chest X-Ray 12/17/18 06:00 IMPRESSION: Marked improved aeration residual basilar opacities. SUPPORT DEVICE(S) IN EXPECTED LOCATIONS. Assessment and Plan - Diagnosis (1) Pneumonia Qualifiers: Pneumonia type: due to unspecified organism Laterality: bilateral Lung location: unspecified part of lung Qualified Code(s): J18.9 - Pneumonia, unspecified organism Is this a current diagnosis for this admission?: Yes Plan: 12/15/2018-the patient has been feeling poorly for several weeks. The chest CT shows bilateral groundglass appearance with upper lobe predominance. This could be a viral pneumonitis. I will also check Legionella and mycoplasma studies. The patient will be placed on ceftriaxone and azithromycin. Oxygen if needed. 12/16/2018-patient's WBC count today is 13,600 blood cultures are negative so far. Plan is to continue his antibiotic therapy azithromycin and ceftriaxone so far the cultures are negative. Patient is going to be intubated to protect the airway and prevent aspiration. 12/17/2018-chest x-ray today indicates right-sided pneumonia presently on azithromycin and ceftriaxone blood cultures are pending cultures for Legionella is pending is a T-max of 102 last night. Presently on ceftriaxone and azithromycin. Intubated. Plan is to continue the present management. Most likely community-acquired pneumonia most likely gram-positive organisms responsible. (2) Alcohol abuse Is this a current diagnosis for this admission?: Yes (3) Severe depression Is this a current diagnosis for this admission?: Yes (4) Transaminitis Is this a current diagnosis for this admission?: Yes (5) Respiratory distress Is this a current diagnosis for this admission?: Yes Plan: 12/16/2018-patient is getting treatment for pneumonitis. 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 We are going to intubate him today to protect the airway. Maybe he is developing into acute respiratory failure most likely secondary to underlying pneumonia. Consultation with Dr. Guzman is going to be requested. Patient was tachypneic yesterday and agitated and getting restless to prevent out to protect the trach he was intubated yesterday. Patient is presently on 81 IV drip. ABG this morning on 45% oxygen pH is 7.45 PCO2 31 POD C7 pulse ox is 97%. Is on SIMV tidal volume of 500 respiratory 22 PEEP of 8. Plan is to adjust the settings today. Plan is to continue the present management. - Time Time Spent with patient: 35 or more minutes Anticipated discharge: Home
[2018-12-17] MEDS: ENOXAPARIN SODIUM INJ 40 MG/0.4 ML DISP.SYRIN SUBCUT SCH (09:44)
[2018-12-17] MEDS: PANTOPRAZOLE SODIUM 40 MG VIAL IV SCH (09:44)
[2018-12-17] MEDS ORDERED: PANTOPRAZOLE SODIUM 40 MG PACKET.DR NG SCH (10:00)
[2018-12-17] MEDS: NORMAL SALINE 1000 ML 1,000 ML with POTASSIUM CHLORIDE 20 MEQ, MAGNESIUM SULFATE 8 MEQ,... IV SCH ×5 (18:55)
[2018-12-17] MEDS: CEFTRIAXONE SODIUM 1,000 MG in DEXTROSE 5%-WATER 50 ML IV SCH (18:55)
[2018-12-17] MEDS: AZITHROMYCIN 500 MG in DEXTROSE 5%-WATER 250 ML IV SCH (18:55)
[2018-12-17] MEDS: ATORVASTATIN CALCIUM 20 MG TABLET NG SCH (22:57)
[2018-12-17] MEDS ORDERED: ACETAMINOPHEN 1,000 MG/100 ML RTUPB IV ONE ×2 (23:06→23:59)
[2018-12-17] MEDS: DIAZEPAM INJ 10 MG/2 ML DISP.SYRIN IV PRN (23:15)
[2018-12-18] MEDS: LORAZEPAM 24 MG/240 ML BAG IV PRN ×2 (02:23→13:39)
[2018-12-18] MEDS: GUAIFENESIN SYRP 200 MG/10 ML UDC NG SCH ×6 (02:26→21:26)
[2018-12-18] MEDS: KETOROLAC TROMETHAMINE INJ/PF 30 MG/1 ML SDV IV PRN ×2 (02:26→16:46)
[2018-12-18] MEDS: PROPOFOL 1,000 MG/100 ML INFUS..BTL IV PRN ×3 (03:01→21:21)
[2018-12-18 03:24] LABS: ABSOLUTE EOSINOPHILS # (AUTO) 0.1 10^3/uL (0.0-0.6); ABSOLUTE LYMPHOCYTES (AUTO) 0.6 10^3/uL (0.5-4.7); ABSOLUTE MONOCYTES (AUTO) 0.4 10^3/uL (0.1-1.4); ABSOLUTE NEUT (AUTO) 8.9 10^3/uL (1.7-8.2); BASOPHILS % (AUTO) 0.4 % (0-2); EOSINOPHILS % (AUTO) 1.4 % (0-6); HEMATOCRIT 24.8 % (37.9-51.0); HEMOGLOBIN 8.5 g/dL (13.5-17.0); LYMPHOCYTES % (AUTO) 6.2 % (13-45); MEAN CORPUSCULAR HEMOGLOBIN 31.7 pg (27.0-33.4); MEAN CORPUSCULAR HGB CONC 34.3 g/dL (32.0-36.0); MEAN CORPUSCULAR VOLUME 93 fl (80-97); PLATELET COUNT 368 10^3/uL (150-450); RED BLOOD COUNT 2.68 10^6/uL (4.35-5.55); RED CELL DISTRIBUTION WIDTH 13.8 % (11.5-14.0); TOTAL CELLS COUNTED % (AUTO) 100 %; WHITE BLOOD COUNT 10.1 10^3/uL (4.0-10.5)
[2018-12-18 03:50] LABS: ALKALINE PHOSPHATASE 128 U/L (38-126); ANION GAP 6 (5-19); ASPARTATE AMINO TRANSFERASE 79 U/L (17-59); BILIRUBIN,DIRECT 0.4 mg/dL (0.0-0.4); BILIRUBIN,TOTAL 0.4 mg/dL (0.2-1.3); BLOOD UREA NITROGEN 7 mg/dL (7-20); CARBON DIOXIDE 21 mmol/L (22-30); CHLORIDE 109 mmol/L (98-107); GLUCOSE 119 mg/dL (75-110); TOTAL PROTEIN 3.6 g/dL (6.3-8.2)
[2018-12-18 04:04] LABS: ALBUMIN 1.8 g/dL (3.5-5.0); CALCIUM 6.7 mg/dL (8.4-10.2); POTASSIUM 5.1 mmol/L (3.6-5.0)
[2018-12-18 05:04] LABS: ARTERIAL BLOOD FIO2 45%; ARTERIAL BLOOD H2CO3 1.01 mmol/L (1.05-1.35); ARTERIAL BLOOD HCO3 22.6 mmol/L (20-24); ARTERIAL BLOOD O2 SATURATION 93.4 % (94-98); ARTERIAL BLOOD PCO2 33.6 mmHg (35-45); ARTERIAL BLOOD PH 7.45 (7.35-7.45); ARTERIAL BLOOD PO2 63.5 mmHg (80-100); ARTERIAL BLOOD TOTAL CO2 23.7 mmol/L (23-27)
[2018-12-18] MEDS: DIAZEPAM INJ 10 MG/2 ML DISP.SYRIN IV PRN ×2 (05:20→21:55)
--- NOTE | 2018-12-18 08:57 | RADIOLOGY REPORT (SQ) ---
EXAM DESCRIPTION: CHEST SINGLE VIEW COMPLETED DATE/TIME: 12/18/2018 6:34 am REASON FOR STUDY: resp failure COMPARISON: 12/17/2018. EXAM PARAMETERS: NUMBER OF VIEWS: One view. TECHNIQUE: Single frontal radiographic view of the chest acquired. RADIATION DOSE: NA LIMITATIONS: None. FINDINGS: LUNGS AND PLEURA: Scattered bilateral airspace disease, unchanged. No pleural effusion. No pneumothorax. MEDIASTINUM AND HILAR STRUCTURES: No masses. Contour normal. HEART AND VASCULAR STRUCTURES: Heart normal in size. Normal vasculature. BONES: No acute findings. HARDWARE: Stable endotracheal tube and nasogastric tube. OTHER: No other significant finding. IMPRESSION: NO CHANGE IN APPEARANCE OF THE CHEST. TECHNICAL DOCUMENTATION: JOB ID: [id number] [employer]- All Rights Reserved Reading location - IP/workstation name: [email or web address]
--- NOTE | 2018-12-18 10:40 | PDOC PROGRESS REPORT ---
Subjective Progress Note for:: 12/18/18 Subjective:: 57 year old male with a history of bladder cancer, hyperlipidemia, myalgias, insomnia and depression. His unexpectedly on Mother's Day and 1 of his children was killed in a motor vehicle accident I believe last year. He states that he has not been feeling well for the last 3 to 4 weeks. He felt poorly over the last weekend and presented to an urgent care clinic. He was given doxycycline. He failed to improve. He now is experiencing shortness of breath and the feeling of being generally unwell. He has a congested cough but cannot mobilize secretions. Chest x-ray shows diffuse bilateral groundglass appearance. The patient does have an elevated white blood cell count. This is bilateral pneumonia or pneumonitis. He also complains of headache that is bilateral with scalp hyperesthesia. Patient was extremely restless in the exam room. He stated that he had to urinate. With his history of bladder cancer he reports that he develops urgency and discomfort quite quickly. The patient was referred to the hospital service for admission after being started on antibiotic therapy. 12/16/2018- pt is on non- rebreather.. tachypnic , tachycardic agigated .. need may trach protection probably need ventilation. to start on ativan iv drip for sedation. transferred to icu last night for agitation and for agrresive behaviour. 12/17/[id number]-old male with multiple medical problems including bladder cancer, hyperlipidemia, anxiety, depression, alcohol abuse admitted for not feeling well and he went to the urgent care he was given doxycycline failed to improve came to the ER with complaints of increasing shortness of breath and not feeling well the chest x-ray suggestive of diffuse groundglass appearance and pneumonitis. He is getting antibiotic therapy chest x-ray done this morning indicates patchy infiltrates in the right side he had a T-max of 102 last night. Presently on azithromycin and ceftriaxone. He was intubated yesterday as a prophylactic measure to protect the airway. 12/18/2018- 57 yrs with multiple med problems admitted for increased shortness , still. T-max is 100.9 today. Cultures are negative. WBC count is normal. Patient was intubated prophylactically to prevent be compromised. No acute events in the last 24 hours. Reason For Visit: PNEUMONIA, ANXIETY WITH DEPRESSION Physical Exam Vital Signs: Temp Pulse Resp BP Pulse Ox 100.4 F 67 22 H 130/88 H 98 12/18/18 08:00 12/18/18 08:15 12/18/18 08:15 12/18/18 08:00 12/18/18 08:15 Intake & Output 12/17/18 12/18/18 12/19/18 06:59 06:59 06:59 Intake Total 4687 4866 13 Output Total 1745 4635 100 Balance 2942 231 -87 Weight 88 kg 86.3 kg General appearance: PRESENT: other - Patient is intubated under sedation. Head exam: PRESENT: atraumatic Eye exam: PRESENT: PERRLA Ear exam: PRESENT: normal external ear exam Mouth exam: PRESENT: dry mucosa Teeth exam: PRESENT: poor dentation Neck exam: ABSENT: carotid bruit, JVD, lymphadenopathy, thyromegaly Respiratory exam: PRESENT: clear to auscultation alyx. ABSENT: rales, rhonchi, wheezes Cardiovascular exam: PRESENT: RRR. ABSENT: diastolic murmur, rubs, systolic murmur GI/Abdominal exam: PRESENT: normal bowel sounds, soft, other - NG tube is in place.. ABSENT: distended, guarding, mass, organolmegaly, rebound, tenderness Rectal exam: PRESENT: deferred Extremities exam: PRESENT: full ROM. ABSENT: calf tenderness, clubbing, pedal edema Neurological exam: PRESENT: alert, awake, oriented to person, oriented to place, oriented to time, oriented to situation, CN II-XII grossly intact. ABSENT: motor sensory deficit Psychiatric exam: PRESENT: appropriate affect, normal mood. ABSENT: homicidal ideation, suicidal ideation Results Laboratory Results: 12/18/18 03:01 12/18/18 03:01 12/18/18 12/18/18 12/18/18 03:01 03:01 04:50 WBC 10.1 RBC 2.68 L Hgb 8.5 L Hct 24.8 L MCV 93 MCH 31.7 MCHC 34.3 RDW 13.8 Plt Count 368 Seg Neutrophils % 88.0 H Lymphocytes % 6.2 L Monocytes % 4.0 Eosinophils % 1.4 Basophils % 0.4 Absolute Neutrophils 8.9 H Absolute Lymphocytes 0.6 Absolute Monocytes 0.4 Absolute Eosinophils 0.1 Absolute Basophils 0.0 Carbonic Acid 1.01 L HCO3/H2CO3 Ratio 22:1 ABG pH 7.45 ABG pCO2 33.6 L ABG pO2 63.5 L ABG HCO3 22.6 ABG O2 Saturation 93.4 L ABG Base Excess -1.0 FiO2 45% Sodium 135.7 L Potassium 5.1 H D Chloride 109 H Carbon Dioxide 21 L Anion Gap 6 BUN 7 Creatinine 0.68 Est GFR ( Amer) > 60 Est GFR (Non-Af Amer) > 60 Glucose 119 H Calcium 6.7 L* Magnesium 3.0 H Total Bilirubin 0.4 AST 79 H Alkaline Phosphatase 128 H Total Protein 3.6 L Albumin 1.8 L 12/16/18 12:40 Tracheal Aspirate Gram Stain - Final 12/16/18 12:40 Tracheal Aspirate Sputum Culture - Final GREATLY REDUCED NORMAL SONAM 12/15/18 16:30 Clean Catch Midstream Urine Culture - Final NO GROWTH 2 DAYS 12/15/18 13:55 Troponin I < 0.012 Impressions: Chest CT 12/15/18 00:00 IMPRESSION: Mediastinal and hilar lymphadenopathy.Diffuse interstitial - nodular and ground-glass opacities are present throughout both lungs, upper lobe predominance. No pleural effusion. IMPRESSION: Asymmetric thickening of the bladder wall, left side measures 8 mm thickness. Numerous areas of lymphadenopathy are seen in the external iliac and common iliac chains bilaterally, right greater than left. Head CT 12/15/18 15:18 IMPRESSION: NO ACUTE INTRACRANIAL FINDINGS. EVIDENCE OF ACUTE STROKE: NO. Soft Tissue Neck CT 12/15/18 15:18 IMPRESSION: Mild bilateral cervical level 4 and supraclavicular adenopathy. Coarse interstitial -nodular and ground-glass opacities throughout both upper lobes.Upper mediastinal adenopathy. Abdomen/Pelvis CT 12/15/18 15:19 IMPRESSION: Mediastinal and hilar lymphadenopathy.Diffuse interstitial - nodular and ground-glass opacities are present throughout both lungs, upper lobe predominance. No pleural effusion. IMPRESSION: Asymmetric thickening of the bladder wall, left side measures 8 mm thickness. Numerous areas of lymphadenopathy are seen in the external iliac and common iliac chains bilaterally, right greater than left. KUB X-Ray 12/16/18 09:36 IMPRESSION: An NG tube extends to the gastroesophageal junction. Chest X-Ray 12/18/18 06:00 IMPRESSION: NO CHANGE IN APPEARANCE OF THE CHEST. Assessment and Plan - Diagnosis (1) Pneumonia Qualifiers: Pneumonia type: due to unspecified organism Laterality: bilateral Lung location: unspecified part of lung Qualified Code(s): J18.9 - Pneumonia, unspecified organism Is this a current diagnosis for this admission?: Yes Plan: 12/15/2018-the patient has been feeling poorly for several weeks. The chest CT shows bilateral groundglass appearance with upper lobe predominance. This could be a viral pneumonitis. I will also check Legionella and mycoplasma studies. The patient will be placed on ceftriaxone and azithromycin. Oxygen if needed. 12/16/2018-patient's WBC count today is 13,600 blood cultures are negative so far. Plan is to continue his antibiotic therapy azithromycin and ceftriaxone so far the cultures are negative. Patient is going to be intubated to protect the airway and prevent aspiration. 12/17/2018-chest x-ray today indicates right-sided pneumonia presently on azithromycin and ceftriaxone blood cultures are pending cultures for Legionella is pending is a T-max of 102 last night. Presently on ceftriaxone and azithr omycin. Intubated. Plan is to continue the present management. Most likely community-acquired pneumonia most likely gram-positive organisms responsible. 12/18/2018-chest x-ray indicated with pneumonitis the cultures are negative. Presently on IV antibiotic therapy and T-max is 100.9. Plan is to continue the present management and patient is intubated now. On SIMV with rate of 22, 45% oxygen and PEEP of 8. Dr. Guzman is on board. (2) Alcohol abuse Is this a current diagnosis for this admission?: Yes Plan: 12/16/2018-patient has history of heavy alcohol abuse looks like he is going to going through the withdrawal last night he was very much agitated verbally abusive to the nurses he was given several doses of Valium without any improvement he is also received Haldol and it helped him a letter and he was brought to the ICU and started on Precedex last night. This morning is tachypneic and nonrebreather tachycardic and again getting agitated verbally aggressive. To protect the airway we could not intubate the patient. To put a Dorantes's catheter NG tube banana bag orders were placed. Follow-up chest x-ray since ABGs are requested. We are going to continue to closely monitor his respiratory status. Patient is going to be on Ativan IV drip for sedation. 12/18/2018-patient has history of heavy alcohol abuse once he is extubated we are going to on awake counselor him about cutting down the alcohol intake. Patient is receiving a banana bag. (3) Severe depression Is this a current diagnosis for this admission?: Yes Plan: 12/15/2018-the patient is on Lexapro 20 mg daily however he stopped it abruptly because he thought it was not working. This was several days ago. I encouraged him to go back on Lexapro 10 mg daily and explained adverse reactions to abrupt cessation of this medication. In addition he would like to treat his depression with counseling. I have asked discharge planning to see the patient and provide mental health resources. He does use amitriptyline to help him sleep and this does have antidepressant qualities. 12/16/2018-patient has history of severe depression not on a psych medications at this point. Psych consult was requested. 12/18/2018-patient has history of severe depression psych consult was requested once he is extubated they may able to talk him to him. (4) Transaminitis Is this a current diagnosis for this admission?: Yes Plan: 12/15/2018-the patient's transaminases are elevated. I did add a gamma- glutamyltransferase level as well. He reports anywhere from 0-3 beers a day but reports he can go several days without drinking. His did have a significant alcohol problem. During part of the conversation I got the impression that he drinks more than he lets on. I will review the studies. The CT scan did not show evidence of fatty liver infiltration or nodularity. 12/16/2018-elevated liver enzymes most likely secondary to heavy alcohol abuse and liver injury. Plan is to check for hepatitis profile. 12/18/2018-liver enzymes are slowly improving. Patient might have acute liver injury secondary to alcohol abuse. (5) Respiratory distress Is this a current diagnosis for this admission?: Yes Plan: 12/16/2018-patient is getting treatment for pneumonitis. Is getting tachycardic order picker agitated and aggressive tachypneic. We are going to intubate him today to protect the airway. Maybe he is developing into acute respiratory failure most likely secondary to underlying pneumonia. Consultation with Dr. Guzman is going to be requested. Patient was tachypneic yesterday and agitated and getting restless to prevent out to protect the trach he was intubated yesterday. Patient is presently on 81 IV drip. ABG this morning on 45% oxygen pH is 7.45 PCO2 31 POD C7 pulse ox is 97%. Is on SIMV tidal volume of 500 respiratory 22 PEEP of 8. Plan is to adjust the settings today. Plan is to continue the present management. 12/18/2018-patient is still intubated on Ativan drip and Diprivan. Plan is to continue to keep him on ventilator today. (6) Hypocalcemia Is this a current diagnosis for this admission?: Yes Plan: 12/18/2018-serum calcium is 6.7 today and albumin is 1.8 corrected serum calcium is within the normal range. (7) Hypoalbuminemia Is this a current diagnosis for this admission?: Yes Plan: 12/18/2018-patient serum albumin is 1.8 hypoalbuminemia may be secondary to heavy alcohol abuse and poor oral intake. Plan is to give IV albumin today. - Time Time Spent with patient: 25-34 minutes Medications reviewed and adjusted accordingly: Yes Anticipated discharge: Home
[2018-12-18] MEDS: PANTOPRAZOLE SODIUM 40 MG VIAL IV SCH (10:49)
[2018-12-18] MEDS: ENOXAPARIN SODIUM INJ 40 MG/0.4 ML DISP.SYRIN SUBCUT SCH (10:49)
[2018-12-18] MEDS: ALBUMIN HUMAN 12.5 GM/50 ML RTUINJ IV SCH ×4 (11:23→18:26)
[2018-12-18] MEDS: CEFTRIAXONE SODIUM 1,000 MG in DEXTROSE 5%-WATER 50 ML IV SCH (18:24)
[2018-12-18] MEDS: AZITHROMYCIN 500 MG in DEXTROSE 5%-WATER 250 ML IV SCH (18:25)
[2018-12-18] MEDS: NORMAL SALINE 1000 ML 1,000 ML IV PRN (19:30)
[2018-12-18] MEDS: ATORVASTATIN CALCIUM 20 MG TABLET NG SCH (21:26)
[2018-12-18] MEDS: NORMAL SALINE 1000 ML 1,000 ML with POTASSIUM CHLORIDE 20 MEQ, MAGNESIUM SULFATE 8 MEQ,... IV SCH ×5 (21:26)
[2018-12-18] MEDS: ACETAMINOPHEN SOLN 325 MG/10.15 ML UDCUP NG PRN (21:34)
[2018-12-19] MEDS: LORAZEPAM 24 MG/240 ML BAG IV PRN ×3 (00:10→20:50)
[2018-12-19] MEDS: PROPOFOL 1,000 MG/100 ML INFUS..BTL IV PRN ×4 (01:46→17:47)
[2018-12-19] MEDS: GUAIFENESIN SYRP 200 MG/10 ML UDC NG SCH ×6 (01:48→21:12)
[2018-12-19 03:55] LABS: ARTERIAL BLOOD BASE EXCESS 0 mmol/L; ARTERIAL BLOOD H2CO3 0.96 mmol/L (1.05-1.35); ARTERIAL BLOOD HCO3 23.2 mmol/L (20-24); ARTERIAL BLOOD O2 SATURATION 93.3 % (94-98); ARTERIAL BLOOD PCO2 31.9 mmHg (35-45); ARTERIAL BLOOD PH 7.48 (7.35-7.45); ARTERIAL BLOOD PO2 61.3 mmHg (80-100); ARTERIAL BLOOD TOTAL CO2 24.2 mmol/L (23-27)
[2018-12-19 03:59] LABS: ARTERIAL BLOOD FIO2 45%
[2018-12-19] MEDS: ACETAMINOPHEN SOLN 325 MG/10.15 ML UDCUP NG PRN ×2 (04:32→21:12)
[2018-12-19 04:45] LABS: ALBUMIN 2.6 g/dL (3.5-5.0); ALKALINE PHOSPHATASE 142 U/L (38-126); ANION GAP 10 (5-19); ASPARTATE AMINO TRANSFERASE 67 U/L (17-59); BILIRUBIN,DIRECT 0.5 mg/dL (0.0-0.4); BILIRUBIN,TOTAL 0.5 mg/dL (0.2-1.3); BLOOD UREA NITROGEN 9 mg/dL (7-20); CALCIUM 8.2 mg/dL (8.4-10.2); CARBON DIOXIDE 24 mmol/L (22-30); CHLORIDE 103 mmol/L (98-107); GLUCOSE 124 mg/dL (75-110); TOTAL PROTEIN 4.8 g/dL (6.3-8.2)
[2018-12-19 05:00] LABS: PREALBUMIN 4.9 mg/dL (17.6-36.0)
[2018-12-19 05:23] LABS: ABSOLUTE EOSINOPHILS # (AUTO) 0.1 10^3/uL (0.0-0.6); ABSOLUTE LYMPHOCYTES (AUTO) 0.6 10^3/uL (0.5-4.7); ABSOLUTE MONOCYTES (AUTO) 0.7 10^3/uL (0.1-1.4); ABSOLUTE NEUT (AUTO) 8.3 10^3/uL (1.7-8.2); BASOPHILS % (AUTO) 0.2 % (0-2); EOSINOPHILS % (AUTO) 1.5 % (0-6); HEMATOCRIT 26.7 % (37.9-51.0); LYMPHOCYTES % (AUTO) 6.3 % (13-45); MEAN CORPUSCULAR HEMOGLOBIN 31.4 pg (27.0-33.4); MEAN CORPUSCULAR HGB CONC 34.4 g/dL (32.0-36.0); MEAN CORPUSCULAR VOLUME 91 fl (80-97); MONOCYTES % (AUTO) 6.7 % (3-13); PLATELET COUNT 502 10^3/uL (150-450); RED BLOOD COUNT 2.93 10^6/uL (4.35-5.55); RED CELL DISTRIBUTION WIDTH 13.3 % (11.5-14.0); SEGMENTED NEUTROPHILS % (AUTO) 85.3 % (42-78); TOTAL CELLS COUNTED % (AUTO) 100 %; WHITE BLOOD COUNT 9.7 10^3/uL (4.0-10.5)
[2018-12-19 05:37] LABS: HEMOGLOBIN 9.2 g/dL (13.5-17.0)
[2018-12-19 07:08] LABS: MYCOPLASMA PNEUMONIAE IGG AB 273 U/mL (0-99); MYCOPLASMA PNEUMONIAE IGM AB <770 U/mL (0-769)
[2018-12-19] MEDS: NORMAL SALINE 1000 ML 1,000 ML IV PRN ×2 (08:42→21:13)
--- NOTE | 2018-12-19 08:46 | RADIOLOGY REPORT (SQ) ---
EXAM DESCRIPTION: CHEST SINGLE VIEW COMPLETED DATE/TIME: 12/19/2018 6:25 am REASON FOR STUDY: resp failure COMPARISON: 12/18/2018 EXAM PARAMETERS: NUMBER OF VIEWS: One view. TECHNIQUE: Single frontal radiographic view of the chest acquired. RADIATION DOSE: NA LIMITATIONS: None. FINDINGS: LUNGS AND PLEURA: Ill-defined hazy bibasilar opacities. There is increased consolidation of the left lower lobe with obscuration of the left hemidiaphragm. No large effusion. No pneumothor ax. MEDIASTINUM AND HILAR STRUCTURES: No masses. Contour normal. HEART AND VASCULAR STRUCTURES: Normal heart size. Aortic atherosclerosis. BONES: No acute findings. HARDWARE: Endotracheal tube tip at thoracic inlet, 8.5 cm above the mark. Enteric tube tip below d iaphragm but excluded by collimation. OTHER: No other significant finding. IMPRESSION: Persistent hazy bilateral airspace disease with increased consolidation of the left lowe r lobe. Endotracheal tube tip at thoracic inlet, 8.5 cm above the mark. Consider advancing 3- 4 cm. TECHNICAL DOCUMENTATION: JOB ID: [id number] [employer]- All Rights Reserved Reading location - IP/workstation name: [email or web address]
--- NOTE | 2018-12-19 10:03 | PDOC PROGRESS REPORT ---
Subjective Progress Note for:: 12/19/18 Subjective:: 57 year old male with a history of bladder cancer, hyperlipidemia, myalgias, insomnia and depression. His unexpectedly on Mother's Day and 1 of his children was killed in a motor vehicle accident I believe last year. He states that he has not been feeling well for the last 3 to 4 weeks. He felt poorly over the last weekend and presented to an urgent care clinic. He was given doxycycline. He failed to improve. He now is experiencing shortness of breath and the feeling of being generally unwell. He has a congested cough but cannot mobilize secretions. Chest x-ray shows diffuse bilateral groundglass appearance. The patient does have an elevated white blood cell count. This is bilateral pneumonia or pneumonitis. He also complains of headache that is bilateral with scalp hyperesthesia. Patient was extremely restless in the exam room. He stated that he had to urinate. With his history of bladder cancer he reports that he develops urgency and discomfort quite quickly. The patient was referred to the hospital service for admission after being started on antibiotic therapy. 12/16/2018- pt is on non- rebreather.. tachypnic , tachycardic agigated .. need may trach protection probably need ventilation. to start on ativan iv drip for sedation. transferred to icu last night for agitation and for agrresive behaviour. 12/17/[id number]-inpt-old male with multiple medical problems including bladder cancer, hyperlipidemia, anxiety, depression, alcohol abuse admitted for not feeling well and he went to the urgent care he was given doxycycline failed to improve came to the ER with complaints of increasing shortness of breath and not feeling well the chest x-ray suggestive of diffuse groundglass appearance and pneumonitis. He is getting antibiotic therapy chest x-ray done this morning indicates patchy infiltrates in the right side he had a T-max of 102 last night. Presently on azithromycin and ceftriaxone. He was intubated yesterday as a prophylactic measure to protect the airway. 12/18/2018- 57 yrs with multiple med problems admitted for increased shortness , still. T-max is 100.9 today. Cultures are negative. WBC count is normal. Patient was intubated prophylactically to prevent be compromised. No acute events in the last 24 hours. 12/19/[id number]-hoqa-old male admitted with shortness of breath and pneumonia she is also heavy alcohol user. He was getting agitated and restless and difficult to manage with pain medications promptly intubated to protect the airway. Chest x-ray this morning shows endotracheal tube is not in position. We are going to adjust the tube. Chest x-ray suggested worsening of the consolidation. Patient is on IV Rocephin and Zithromax. T-max is 99.9. Dr. Guzman is on board. Reason For Visit: PNEUMONIA, ANXIETY WITH DEPRESSION Physical Exam Vital Signs: Temp Pulse Resp BP Pulse Ox 99.3 F 57 L 22 H 128/79 H 98 12/19/18 08:00 12/19/18 09:12 12/19/18 09:12 12/19/18 08:00 12/19/18 09:12 Intake & Output 12/18/18 12/19/18 12/20/18 06:59 06:59 06:59 Intake Total 4866 1279 1254 Output Total 4635 2075 400 Balance 231 -796 854 Weight 86.3 kg 88.5 kg General appearance: PRESENT: obese, other - Patient is intubated under sedation. Head exam: PRESENT: atraumatic Eye exam: PRESENT: PERRLA Mouth exam: PRESENT: moist, tongue midline Teeth exam: PRESENT: poor dentation Neck exam: ABSENT: carotid bruit, JVD, lymphadenopathy, thyromegaly Respiratory exam: PRESENT: crackles, decreased breath sounds Cardiovascular exam: PRESENT: RRR. ABSENT: diastolic murmur, rubs, systolic murmur GI/Abdominal exam: PRESENT: normal bowel sounds, soft. ABSENT: distended, guarding, mass, organolmegaly, rebound, tenderness Rectal exam: PRESENT: deferred Extremities exam: PRESENT: full ROM. ABSENT: calf tenderness, clubbing, pedal edema Neurological exam: PRESENT: alert, awake, oriented to person, oriented to place, oriented to time, oriented to situation, CN II-XII grossly intact. ABSENT: motor sensory deficit Psychiatric exam: PRESENT: appropriate affect, normal mood. ABSENT: homicidal ideation, suicidal ideation Results Laboratory Results: 12/19/18 05:04 12/19/18 04:03 12/19/18 12/19/18 12/19/18 03:42 04:03 04:03 WBC Cancelled RBC Cancelled Hgb Cancelled Hct Cancelled MCV Cancelled MCH Cancelled MCHC Cancelled RDW Cancelled Plt Count Cancelled Seg Neutrophils % Cancelled Lymphocytes % Cancelled Monocytes % Cancelled Eosinophils % Cancelled Basophils % Cancelled Absolute Neutrophils Cancelled Absolute Lymphocytes Cancelled Absolute Monocytes Cancelled Absolute Eosinophils Cancelled Absolute Basophils Cancelled Carbonic Acid 0.96 L HCO3/H2CO3 Ratio 24:1 ABG pH 7.48 H ABG pCO2 31.9 L ABG pO2 61.3 L ABG HCO3 23.2 ABG O2 Saturation 93.3 L ABG Base Excess 0 FiO2 45% Sodium 136.7 L Potassium 4.0 Chloride 103 Carbon Dioxide 24 Anion Gap 10 BUN 9 Creatinine 0.78 Est GFR ( Amer) > 60 Est GFR (Non-Af Amer) > 60 Glucose 124 H Calcium 8.2 L Magnesium 2.3 Total Bilirubin 0.5 AST 67 H Alkaline Phosphatase 142 H Total Protein 4.8 L Albumin 2.6 L Prealbumin 4.9 L 12/19/18 05:04 WBC 9.7 RBC 2.93 L Hgb 9.2 L Hct 26.7 L MCV 91 MCH 31.4 MCHC 34.4 RDW 13.3 Plt Count 502 H Seg Neutrophils % 85.3 H Lymphocytes % 6.3 L Monocytes % 6.7 Eosinophils % 1.5 Basophils % 0.2 Absolute Neutrophils 8.3 H Absolute Lymphocytes 0.6 Absolute Monocytes 0.7 Absolute Eosinophils 0.1 Absolute Basophils 0.0 Carbonic Acid HCO3/H2CO3 Ratio ABG pH ABG pCO2 ABG pO2 ABG HCO3 ABG O2 Saturation ABG Base Excess FiO2 Sodium Potassium Chloride Carbon Dioxide Anion Gap BUN Creatinine Est GFR ( Amer) Est GFR (Non-Af Amer) Glucose Calcium Magnesium Total Bilirubin AST Alkaline Phosphatase Total Protein Albumin Prealbumin 12/16/18 03:20 Catheterized Urine Legionella Urinary Antigen - Final 12/16/18 12:40 Tracheal Aspirate Gram Stain - Final 12/16/18 12:40 Tracheal Aspirate Sputum Culture - Final GREATLY REDUCED NORMAL SONAM 12/15/18 13:55 Troponin I < 0.012 Impressions: Chest CT 12/15/18 00:00 IMPRESSION: Mediastinal and hilar lymphadenopathy.Diffuse interstitial - nodular and ground-glass opacities are present throughout both lungs, upper lobe predominance. No pleural effusion. IMPRESSION: Asymmetric thickening of the bladder wall, left side measures 8 mm thickness. Numerous areas of lymphadenopathy are seen in the external iliac and common iliac chains bilaterally, right greater than left. Head CT 12/15/18 15:18 IMPRESSION: NO ACUTE INTRACRANIAL FINDINGS. EVIDENCE OF ACUTE STROKE: NO. Soft Tissue Neck CT 12/15/18 15:18 IMPRESSION: Mild bilateral cervical level 4 and supraclavicular adenopathy. Coarse interstitial -nodular and ground-glass opacities throughout both upper lobes.Upper mediastinal adenopathy. Abdomen/Pelvis CT 12/15/18 15:19 IMPRESSION: Mediastinal and hilar lymphadenopathy.Diffuse interstitial - nodular and ground-glass opacities are present throughout both lungs, upper lobe predominance. No pleural effusion. IMPRESSION: Asymmetric thickening of the bladder wall, left side measures 8 mm thickness. Numerous areas of lymphadenopathy are seen in the external iliac and common iliac chains bilaterally, right greater than left. KUB X-Ray 12/16/18 09:36 IMPRESSION: An NG tube extends to the gastroesophageal junction. Chest X-Ray 12/19/18 06:00 IMPRESSION: Persistent hazy bilateral airspace disease with increased consolidation of the left lower lobe. Endotracheal tube tip at thoracic inlet, 8.5 cm above the mark. Consider advancing 3- 4 cm. Assessment and Plan - Diagnosis (1) Pneumonia Qualifiers: Pneumonia type: due to unspecified organism Laterality: bilateral Lung location: unspecified part of lung Qualified Code(s): J18.9 - Pneumonia, unspecified organism Is this a current diagnosis for this admission?: Yes Plan: 12/15/2018-the patient has been feeling poorly for several weeks. The chest CT shows bilateral groundglass appearance with upper lobe predominance. This could be a viral pneumonitis. I will also check Legionella and mycoplasma studies. The patient will be placed on ceftriaxone and azithromycin. Oxygen if needed. 12/16/2018-patient's WBC count today is 13,600 blood cultures are negative so far. Plan is to continue his antibiotic therapy azithromycin and ceftriaxone so far the cultures are negative. Patient is going to be intubated to protect the airway and prevent aspiration. 12/17/2018-chest x-ray today indicates right-sided pneumonia presently on azithromycin and ceftriaxone blood cultures are pending cultures for Legionella is pending is a T-max of 102 last night. Presently on ceftriaxone and azithromycin. Intubated. Plan is to continue the present management. Most likely community-acquired pneumonia most likely gram-positive organisms responsible. 12/18/2018-chest x-ray indicated with pneumonitis the cultures are negative. Presently on IV antibiotic therapy and T-max is 100.9. Plan is to continue the present management and patient is intubated now. On SIMV with rate of 22, 45% oxygen and PEEP of 8. Dr. Guzman is on board. 12/19/2018-patient chest x-ray indicated worsening of the consolidation. E ndotracheal tube is not in position. We are going to adjust the tube and repeat the chest x-ray. to repeat The cultures today. (2) Alcohol abuse Is this a current diagnosis for this admission?: Yes (3) Severe depression Is this a current diagnosis for this admission?: Yes (4) Transaminitis Is this a current diagnosis for this admission?: Yes (5) Respiratory distress Is this a current diagnosis for this admission?: Yes Plan: 12/16/2018-patient is getting treatment for pneumonitis. 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 We are going to intubate him today to protect the airway. Maybe he is developing into acute respiratory failure most likely secondary to underlying pneumonia. Consultation with Dr. Guzman is going to be requested. Patient was tachypneic yesterday and agitated and getting restless to prevent out to protect the trach he was intubated yesterday. Patient is presently on 81 IV drip. ABG this morning on 45% oxygen pH is 7.45 PCO2 31 POD C7 pulse ox is 97%. Is on SIMV tidal volume of 500 respiratory 22 PEEP of 8. Plan is to adjust the settings today. Plan is to continue the present management. 12/18/2018-patient is still intubated on Ativan drip and Diprivan. Plan is to continue to keep him on ventilator today. 12/19/2018-patient still on mechanical ventilation on the prevention and IV Ativan. Plan is to new present management. (6) Hypocalcemia Is this a current diagnosis for this admission?: Yes Plan: 12/18/2018-serum calcium is 6.7 today and albumin is 1.8 corrected serum calcium is within the normal range. 12/19/2018-serum calcium is improved to 8.2. Hypocalcemia is resolved. (7) Hypoalbuminemia Is this a current diagnosis for this admission?: Yes Plan: 12/18/2018-patient serum albumin is 1.8 hypoalbuminemia may be secondary to heavy alcohol abuse and poor oral intake. Plan is to give IV albumin today. 12/19/2018-serum albumin is 2.6 today. Receiving IV albumin supplementations. - Time Time Spent with patient: 25-34 minutes Medications reviewed and adjusted accordingly: Yes Anticipated discharge: Home
[2018-12-19] MEDS: DIAZEPAM INJ 10 MG/2 ML DISP.SYRIN IV PRN (10:15)
[2018-12-19] MEDS: ENOXAPARIN SODIUM INJ 40 MG/0.4 ML DISP.SYRIN SUBCUT SCH (10:44)
[2018-12-19] MEDS: PANTOPRAZOLE SODIUM 40 MG VIAL IV SCH (10:45)
--- NOTE | 2018-12-19 11:36 | RADIOLOGY REPORT (SQ) ---
EXAM DESCRIPTION: CHEST SINGLE VIEW COMPLETED DATE/TIME: 12/19/2018 10:40 am REASON FOR STUDY: ET tube positiong COMPARISON: None. EXAM PARAMETERS: NUMBER OF VIEWS: One view. TECHNIQUE: Single frontal radiographic view of the chest acquired. RADIATION DOSE: NA LIMITATIONS: None. FINDINGS: LUNGS AND PLEURA: Unchanged patchy perihilar and left basilar opacities. No pneumothorax. Likely small bilateral effusions. . MEDIASTINUM AND HILAR STRUCTURES: Stable. HEART AND VASCULAR STRUCTURES: Stable. BONES: No acute findings. HARDWARE: Endotracheal tube has been advanced with tip now 6.5 cm above the mark. OTHER: No other significant finding. IMPRESSION: Endotracheal tube tip has been advanced with tip 6.5 cm above the mark. Persistent bilateral airspace disease, left greater than right. TECHNICAL DOCUMENTATION: JOB ID: [id number] [employer]- All Rights Reserved Reading location - IP/workstation name: [email or web address]
[2018-12-19 12:14] LABS: ARTERIAL BLOOD BASE EXCESS 1.1 mmol/L; ARTERIAL BLOOD H2CO3 0.92 mmol/L (1.05-1.35); ARTERIAL BLOOD HCO3 23.7 mmol/L (20-24); ARTERIAL BLOOD O2 SATURATION 95.2 % (94-98); ARTERIAL BLOOD PCO2 30.5 mmHg (35-45); ARTERIAL BLOOD PH 7.51 (7.35-7.45); ARTERIAL BLOOD PO2 67.2 mmHg (80-100); ARTERIAL BLOOD TOTAL CO2 24.6 mmol/L (23-27)
[2018-12-19 12:15] LABS: ARTERIAL BLOOD FIO2 40%
[2018-12-19] MEDS: NORMAL SALINE 1000 ML 1,000 ML with POTASSIUM CHLORIDE 20 MEQ, MAGNESIUM SULFATE 8 MEQ,... IV SCH ×5 (17:50)
[2018-12-19] MEDS: CEFTRIAXONE SODIUM 1,000 MG in DEXTROSE 5%-WATER 50 ML IV SCH (17:59)
[2018-12-19] MEDS ORDERED: NORMAL SALINE 1000 ML 1,000 ML with POTASSIUM CHLORIDE 20 MEQ, MAGNESIUM SULFATE 8 MEQ,... IV SCH ×5 (18:00)
[2018-12-19] MEDS: AZITHROMYCIN 500 MG in DEXTROSE 5%-WATER 250 ML IV SCH (18:00)
[2018-12-19] MEDS: ATORVASTATIN CALCIUM 20 MG TABLET NG SCH (21:12)
[2018-12-20] MEDS: PROPOFOL 1,000 MG/100 ML INFUS..BTL IV PRN ×4 (00:11→18:36)
[2018-12-20] MEDS: GUAIFENESIN SYRP 200 MG/10 ML UDC NG SCH ×6 (01:00→21:04)
[2018-12-20 03:38] LABS: ARTERIAL BLOOD BASE EXCESS -1.8 mmol/L; ARTERIAL BLOOD FIO2 40%; ARTERIAL BLOOD H2CO3 0.82 mmol/L (1.05-1.35); ARTERIAL BLOOD HCO3 20.6 mmol/L (20-24); ARTERIAL BLOOD O2 SATURATION 93.5 % (94-98); ARTERIAL BLOOD PCO2 27.4 mmHg (35-45); ARTERIAL BLOOD PH 7.49 (7.35-7.45); ARTERIAL BLOOD PO2 60.5 mmHg (80-100); ARTERIAL BLOOD TOTAL CO2 21.4 mmol/L (23-27)
[2018-12-20 04:15] LABS: HEMATOCRIT 27.4 % (37.9-51.0); HEMOGLOBIN 9.5 g/dL (13.5-17.0); MEAN CORPUSCULAR HEMOGLOBIN 31.4 pg (27.0-33.4); MEAN CORPUSCULAR HGB CONC 34.6 g/dL (32.0-36.0); MEAN CORPUSCULAR VOLUME 91 fl (80-97); PLATELET COUNT 554 10^3/uL (150-450); RED BLOOD COUNT 3.02 10^6/uL (4.35-5.55); RED CELL DISTRIBUTION WIDTH 13.8 % (11.5-14.0); WHITE BLOOD COUNT 10.6 10^3/uL (4.0-10.5)
[2018-12-20 04:33] LABS: ALBUMIN 2.4 g/dL (3.5-5.0); ALKALINE PHOSPHATASE 174 U/L (38-126); ANION GAP 6 (5-19); ASPARTATE AMINO TRANSFERASE 160 U/L (17-59); BILIRUBIN,DIRECT 0.4 mg/dL (0.0-0.4); BILIRUBIN,TOTAL 0.4 mg/dL (0.2-1.3); BLOOD UREA NITROGEN 10 mg/dL (7-20); CALCIUM 7.9 mg/dL (8.4-10.2); CARBON DIOXIDE 22 mmol/L (22-30); CHLORIDE 108 mmol/L (98-107); GLUCOSE 116 mg/dL (75-110); POTASSIUM 4.1 mmol/L (3.6-5.0); TOTAL PROTEIN 4.4 g/dL (6.3-8.2)
[2018-12-20 04:53] LABS: ABSOLUTE LYMPHOCYTES# (MANUAL) 1.2 10^3/uL (0.5-4.7); ABSOLUTE MONOCYTES # (MANUAL) 0.8 10^3/uL (0.1-1.4); BAND NEUTROPHILS % (MANUAL) 5 % (3-5); BASOPHILS % (MANUAL) 0 % (0-2); EOSINOPHILS % (MANUAL) 4 % (0-6); LYMPHOCYTES % (MANUAL) 11 % (13-45); MONOCYTES % (MANUAL) 8 % (3-13); SEGMENTED NEUTROPHILS % (MAN) 72 % (42-78); TOTAL CELLS COUNTED 100
[2018-12-20 04:54] LABS: HYPOCHROMASIA 1+; PLATELET COMMENT INCREASED
--- NOTE | 2018-12-20 08:18 | RADIOLOGY REPORT (SQ) ---
EXAM DESCRIPTION: CHEST SINGLE VIEW COMPLETED DATE/TIME: 12/20/2018 6:33 am REASON FOR STUDY: resp failure COMPARISON: 12/19/2018 EXAM PARAMETERS: NUMBER OF VIEWS: One view. TECHNIQUE: Single frontal radiographic view of the chest acquired. RADIATION DOSE: NA LIMITATIONS: None. FINDINGS: LUNGS AND PLEURA: Mildly improved aeration with persistent patchy left retrocardiac opacit ies. No pneumothorax. Small left effusion. MEDIASTINUM AND HILAR STRUCTURES: Stable. HEART AND VASCULAR STRUCTURES: Heart normal in size. Normal vasculature. BONES: No acute findings. HARDWARE: Endotracheal tube tip has been advanced now 3.3 cm above the mark. Enteric tube tip over lies gastric body. OTHER: IMPRESSION: Endotracheal tube has been advanced with tip 3.3 cm above the mark. Persistent left retrocardiac opacities, possibly atelectasis or infection, with small left effusion. TECHNICAL DOCUMENTATION: JOB ID: [id number] [employer]- All Rights Reserved Reading location - IP/workstation name: [email or web address]
--- NOTE | 2018-12-20 08:49 | RADIOLOGY REPORT (SQ) ---
EXAM DESCRIPTION: KUB/ABDOMEN (SINGLE VIEW) COMPLETED DATE/TIME: 12/20/2018 8:16 am REASON FOR STUDY: NG tube dislodgement COMPARISON: None. NUMBER OF VIEWS: One view. TECHNIQUE: Supine radiographic image of the abdomen acquired. LIMITATIONS: Lower abdomen excluded by collimation. FINDINGS: BOWEL GAS PATTERN: Normal bowel gas pattern. No dilated loops. CALCIFICATIONS: No suspicious calcifications. SOFT TISSUES: No gross mass or suggestion of organomegaly. HARDWARE: Nasoenteric tube tip overlies gastric body. BONES: No acute fracture. No worrisome bone lesions. OTHER: Left retrocardiac patchy opacities. IMPRESSION: Nasoenteric tube tip overlies gastric body. TECHNICAL DOCUMENTATION: JOB ID: [id number] [employer]- All Rights Reserved Reading location - IP/workstation name: [email or web address]
[2018-12-20] MEDS: LORAZEPAM 24 MG/240 ML BAG IV PRN ×2 (10:03→10:09)
[2018-12-20] MEDS: PANTOPRAZOLE SODIUM 40 MG VIAL IV SCH (10:04)
[2018-12-20] MEDS: ENOXAPARIN SODIUM INJ 40 MG/0.4 ML DISP.SYRIN SUBCUT SCH (10:11)
--- NOTE | 2018-12-20 13:38 | Progress Note ---
Provider Note Provider Note: ID Consult Note Asked to review chart of patient. Pt not seen or examined. Reviewed records available in [facility]. Pt is a 58 year old man with PMH including bladder cancer s/p TURB, HLD, depression and insomnia who was admitted on 12/15/18. He presented to the ED with complaint of cough unresponsive to outpatient antibiotic therapy, poor appetite, body aches, headache, some diarrhea and fever. This had been going on for a week prior to admission per ED note, but per H&P, he had been feeling unwell for 3-4 weeks. He denied smoking but admitted to drinking 0-3 beers daily. The patient presented to an Urgent Care clinic and was given doxycycline a few days prior but failed to improve. He complained of feeling congested but inability to bring up secretions. He also had urgecy that he related to his history of bladder cancer. On presentation, he had fever up to 103 F. He was noted to be restless appearing, to have rales bilaterally and tachypnea, tachycardia with regular rhythm, and otherwise no remarkable findings. Initial labs included WBC 13.5, normocytic anemia, normal plt count, sodium 133, chloride 92, AST 246, ALT 162, mildly elevated alkaline phosphatse and low albumin. U/A without pyuria Initial imaging included CXR, 2 view: Diffuse patchy bilateral ground glass opacities. CT chest/abd/pelvis with IV contrast on 12/15: diffuse interstitial nodular and ground glass opacities bilaterally with upper lobe predominance, no pleural effusion, mediastinal and hilar LAD, asymmetric thickening of bladder wall, lymphadenopathy involving iliac chains b/l R>L. CT soft tissue, neck with contrast 12/15: mild bilateral cervical and supraclavicular adenopathy The patient was suspected of potenitally having a viral pneumoniits or an atypical pathogen causing pneumonia or pneumonitis such as Legionella. Azithromycin and Rocephin were ordered while awaiting results of further studies. Overnight, the patient became severely agitated, restless, was unable to follow commands and appeared to be hallucinating. He was transferred to the ICU for Precedex after at attempts to manage his symptoms on the floor with an antipsychotic and benzodiazepines did not result in improvement. He was suspected of having symptoms related to alcohol abuse and required intubation for airway protection on 12/16/18. He was placed on an Ativan drip. Additional labs/microbiology blood cultures 12/15: no growth ucx 12/15: no growth legionella urine antigen 12/16: negative tracheal aspirate: greatly reduced normal rober Mycoplasma IgG positive repeat blood cultures on 12/19: no growth x 24h repeat urine culture on 12/19: no growth x 1 day tracheal aspirate on 12/19 - pending MRSA nasal culture - pending Subsequent imaging has included additional chest x rays, most recently on 12/19 that was read as showing persistent patchy L basilar opacity. Antibiotics: azithromycin 12/15-present; Rocephin 12/15-present. Currently day 5. During his stay, he has continued to have fever up to 101 on 12/16, 102.7 on 12/17, 101.8 on 12/18, 101.3 on 12/19. Heart rate has been in the 50s. Impression/Recommendations With suspected heavy alcohol use, transaminitis, pneumonitis, headache, some diarrhea, hyponatremia - all of this is nonspecific but potentially suggestive of Legionella pneumonia; same also for relative bradycardia despite fever. Legionella urine antigen was negative, but sensitivity is around 80% for Legionella pneumophila serotype 1. Gold standard for diagnosis would be culture on special media for Legionella. Otherwise, some reference labs also offer a PCR test. Would continue current management, with the exception of increasing azithromycin dose to 500 mg daily. Duration of therapy for Legionella pneumonia is usually in the range of 7-14 days or at least 48h after patient defervesces. Can continue azithromycin without Rocephin if there is a need to go beyond 7 days, based on how patient is doing clinically / confirmation of the diagnosis or exclusion of other causes. On chest imaging, there has been no evidence of a lung abscess or significant pleural effusion to suggest that a complication of pneumonia is responsible for continued fever, and no other causes have been identified to date despite workup including CT abd/pelvis and neck, blood cultures, U/A and UCx and repeat. Noninfectious causes for fever in the ICU are multiple - e.g. gout, DVT. Continue to be vigilant with physical exam. Fever is also associated with delirium tremens. El Hawk MD [facility] Infectious Diseases pager [phone]
--- NOTE | 2018-12-20 14:50 | PDOC CONSULTATION ---
Consultation Consult Date: 12/16/18 Attending physician:: DERRICK BASURTO Provider Consulted: KIM TURNER Consult reason:: pna resp failure History of Present Illness Admission Date/PCP: 12/15/18 19:10 UMBERTO ALVARADO MD History of Present Illness: SETH WOODWARD is a 57 year old male bladder cancer presented to the emergency room after several days of malaise and weakness he was agitated and had abnormal chest x-ray that demonstrated a groundglass appearance as well as a leukocytosis he subsequently was admitted. He became more agitated on the floor and c ombative and was transferred to ICU where he was intubated and sedated and continued to be treated for his pneumonitis Past Medical History Cardiac Medical History: Reports: Hyperlipidema Denies: Coronary Artery Disease Pulmonary Medical History: Reports: Bronchitis, Pneumonia Denies: Sleep Apnea EENT Medical History: Reports: None Neurological Medical History: Reports: None Endocrine Medical History: Denies: Diabetes Mellitus Type 1, Diabetes Mellitus Type 2 Renal/ Medical History: Denies: Chronic Kidney Disease, Nephrolithiasis Malignancy Medical History: Reports: Other - Bladder cancer GI Medical History: Denies: Cirrhosis, Gastroesophageal Reflux Disease, Hepatitis, Peptic Ulcer Disease Musculoskeltal Medical History: Reports: Arthritis, Other - Muscle spasm Denies: Gout Skin Medical History: Denies: Eczema, Psoriasis Psychiatric Medical History: Reports: General Anxiety Disorder Denies: Depression Traumatic Medical History: Reports: None Hematology: Denies: Anemia, Bleeding Tendencies, Neutropenia Infectious Medical History: Reports: None Past Surgical History Past Surgical History: Reports: Tonsillectomy, Other - Dontrell fundoplication. Cystoscopies for bladder cancer treatment. Social History Information Source: [facility] Records Lives with: Alone, Other - Patient is a . His unexpectedly on Mother's Day 2018. Smoking Status: Never Smoker Frequency of Alcohol Use: Heavy Hx Recreational Drug Use: No Drugs: None Hx Prescription Drug Abuse: No - Advance Directive Resuscitation Status: Full Code Family History Family History: CAD, Malignancy, Other - Dementia Parental Family History Reviewed: No Children Family History Reviewed: No Sibling(s) Family History Reviewed.: No Medication/Allergy Home Medications: Amitriptyline HCl [Elavil 50 Mg Tablet] 50 mg PO QHS 12/15/18 Atorvastatin Calcium [Lipitor 20 mg Tablet] 20 mg PO DAILY 12/15/18 Cyclobenzaprine HCl [Flexeril 10 mg Tablet] 10 mg PO TIDP PRN 12/15/18 Meloxicam [Mobic] 7.5 mg PO BID 12/15/18 Allergies/Adverse Reactions: No Known Allergies Allergy (Verified 12/15/18 12:45) Review of Systems ROS unobtainable: Due to endotracheal tube Physical Exam Vital Signs: Temp Pulse Resp BP Pulse Ox 98.6 F 65 35 H 110/69 97 12/16/18 08:00 12/16/18 08:00 12/16/18 08:00 12/16/18 08:00 12/16/18 08:00 Intake & Output 12/15/18 12/16/18 12/17/18 06:59 06:59 06:59 Intake Total 4171 35 Output Total 275 45 Balance 3896 -10 Weight 84.1 kg General appearance: PRESENT: no acute distress, disheveled, well-developed, well-nourished. ABSENT: cooperative Head exam: PRESENT: atraumatic, normocephalic Eye exam: PRESENT: conjunctiva pale. ABSENT: EOMI, nystagmus, periorbital swelling, scleral icterus Mouth exam: PRESENT: dry mucosa, neck supple, tongue midline, other - ET tube Neck exam: ABSENT: carotid bruit, full ROM, JVD, lymphadenopathy, meningismus, tenderness, thyromegaly, tracheal deviation, tracheostomy, other Respiratory exam: PRESENT: decreased breath sounds, prolonged expiratory phas, rales, rhonchi, symmetrical, unlabored. ABSENT: retraction, stridor, tachypnea Cardiovascular exam: PRESENT: RRR, +S1, +S2, tachycardia Pulses: PRESENT: normal radial pulses GI/Abdominal exam: PRESENT: soft. ABSENT: distended, mass, tenderness Gentrourinary exam: PRESENT: indwelling catheter Extremities exam: ABSENT: calf tenderness, clubbing, joint swelling, pedal edema Musculoskeletal exam: ABSENT: ambulatory, deformity, dislocation Neurological exam: ABSENT: awake Skin exam: PRESENT: dry, warm Results Laboratory Results: 12/16/18 03:24 12/16/18 03:24 12/15/18 12/15/18 12/15/18 13:55 13:55 13:55 WBC 13.5 H RBC 3.76 L Hgb 11.6 L Hct 34.2 L MCV 91 MCH 30.8 MCHC 33.9 RDW 13.2 Plt Count 438 Seg Neutrophils % Not Reportable Lymphocytes % Not Reportable Monocytes % Not Reportable Eosinophils % Not Reportable Basophils % Not Reportable Absolute Neutrophils Not Reportable Absolute Lymphocytes Not Reportable Absolute Monocytes Not Reportable Absolute Eosinophils Not Reportable Absolute Basophils Not Reportable Carbonic Acid HCO3/H2CO3 Ratio ABG pH ABG pCO2 ABG pO2 ABG HCO3 ABG O2 Saturation ABG Base Excess VBG pH VBG pCO2 VBG HCO3 VBG Base Excess FiO2 Sodium 132.6 L Potassium 4.5 Chloride 92 L Carbon Dioxide 26 Anion Gap 15 BUN 11 Creatinine 0.93 Est GFR ( Amer) > 60 Est GFR (Non-Af Amer) > 60 Glucose 165 H Lactic Acid 1.3 Calcium 8.9 Magnesium Total Bilirubin 1.6 H GGT AST 246 H Alkaline Phosphatase 213 H Total Protein 6.1 L Albumin 3.6 Lipase 65.7 Urine Color Urine Appearance Urine pH Ur Specific Hume Urine Protein Urine Glucose (UA) Urine Ketones Urine Blood Urine Nitrite Ur Leukocyte Esterase Urine WBC (Auto) Urine RBC (Auto) 12/15/18 12/15/18 12/15/18 13:55 13:55 16:30 WBC RBC Hgb Hct MCV MCH MCHC RDW Plt Count Seg Neutrophils % Lymphocytes % Monocytes % Eosinophils % Basophils % Absolute Neutrophils Absolute Lymphocytes Absolute Monocytes Absolute Eosinophils Absolute Basophils Carbonic Acid HCO3/H2CO3 Ratio ABG pH ABG pCO2 ABG pO2 ABG HCO3 ABG O2 Saturation ABG Base Excess VBG pH 7.41 VBG pCO2 42.8 VBG HCO3 26.6 VBG Base Excess 1.6 FiO2 Sodium Potassium Chloride Carbon Dioxide Anion Gap BUN Creatinine Est GFR ( Amer) Est GFR (Non-Af Amer) Glucose Lactic Acid Calcium Magnesium Total Bilirubin GGT 231 H AST Alkaline Phosphatase Total Protein Albumin Lipase Urine Color YELLOW Urine Appearance CLEAR Urine pH 7.0 Ur Specific Hume 1.003 Urine Protein NEGATIVE Urine Glucose (UA) NEGATIVE Urine Ketones NEGATIVE Urine Blood NEGATIVE Urine Nitrite NEGATIVE Ur Leukocyte Esterase NEGATIVE Urine WBC (Auto) 1 Urine RBC (Auto) 1 12/16/18 12/16/18 12/16/18 03:24 03:24 07:30 WBC 13.6 H RBC 3.54 L Hgb 11.0 L Hct 32.6 L MCV 92 MCH 31.1 MCHC 33.8 RDW 13.4 Plt Count 379 Seg Neutrophils % 90.6 H Lymphocytes % 6.0 L Monocytes % 2.8 L Eosinophils % 0.2 Basophils % 0.4 Absolute Neutrophils 12.3 H Absolute Lymphocytes 0.8 Absolute Monocytes 0.4 Absolute Eosinophils 0.0 Absolute Basophils 0.1 Carbonic Acid 1.11 HCO3/H2CO3 Ratio 20:1 ABG pH 7.40 ABG pCO2 37.0 ABG pO2 101.5 H ABG HCO3 22.4 ABG O2 Saturation 97.7 ABG Base Excess -2.0 VBG pH VBG pCO2 VBG HCO3 VBG Base Excess FiO2 15L Sodium 136.8 L Potassium 4.5 Chloride 103 Carbon Dioxide 22 Anion Gap 12 BUN 10 Creatinine 0.98 Est GFR ( Amer) > 60 Est GFR (Non-Af Amer) > 60 Glucose 133 H Lactic Acid Calcium 8.1 L Magnesium 1.8 Total Bilirubin 1.2 GGT 201 H AST 197 H Alkaline Phosphatase 177 H Total Protein 5.4 L Albumin 3.0 L Lipase Urine Color Urine Appearance Urine pH Ur Specific Hume Urine Protein Urine Glucose (UA) Urine Ketones Urine Blood Urine Nitrite Ur Leukocyte Esterase Urine WBC (Auto) Urine RBC (Auto) 12/15/18 13:55 Troponin I < 0.012 Impressions: Chest CT 12/15/18 00:00 IMPRESSION: Mediastinal and hilar lymphadenopathy.Diffuse interstitial - nodular and ground-glass opacities are present throughout both lungs, upper lobe predominance. No pleural effusion. IMPRESSION: Asymmetric thickening of the bladder wall, left side measures 8 mm thickness. Numerous areas of lymphadenopathy are seen in the external iliac and common iliac chains bilaterally, right greater than left. Chest X-Ray 12/15/18 13:10 IMPRESSION: There is diffuse patchy bilateral ground-glass pulmonary opacity, suggestive of edema or infection. Mild cardiomegaly. Head CT 12/15/18 15:18 IMPRESSION: NO ACUTE INTRACRANIAL FINDINGS. EVIDENCE OF ACUTE STROKE: NO. Soft Tissue Neck CT 12/15/18 15:18 IMPRESSION: Mild bilateral cervical level 4 and supraclavicular adenopathy. Coarse interstitial -nodular and ground-glass opacities throughout both upper lobes.Upper mediastinal adenopathy. Abdomen/Pelvis CT 12/15/18 15:19 IMPRESSION: Mediastinal and hilar lymphadenopathy.Diffuse interstitial - nodular and ground-glass opacities are present throughout both lungs, upper lobe predominance. No pleural effusion. IMPRESSION: Asymmetric thickening of the bladder wall, left side measures 8 mm thickness. Numerous areas of lymphadenopathy are seen in the external iliac and common iliac chains bilaterally, right greater than left. Assessment & Plan - Diagnosis (1) Alcohol abuse Is this a current diagnosis for this admission?: Yes Plan: DT precautions (2) Bladder wall thickening Is this a current diagnosis for this admission?: Yes Plan: History of bladder cancer (3) Pneumonia Qualifiers: Pneumonia type: due to unspecified organism Laterality: bilateral Lung location: unspecified part of lung Qualified Code(s): J18.9 - Pneumonia, unspecified organism Is this a current diagnosis for this admission?: Yes Plan: Graphically evident consider aspiration pneumonitis (4) Respiratory distress Is this a current diagnosis for this admission?: Yes Plan: Requiring mechanical ventilation (5) Severe depression Is this a current diagnosis for this admission?: Yes Plan: he has lost spouse and child within the last 12 months - Time Total Critical Time (Minutes): 55
--- NOTE | 2018-12-20 15:58 | PDOC PROGRESS REPORT ---
Subjective Progress Note for:: 12/20/18 Subjective:: Remains intubated and unable to answer any questions Reason For Visit: PNEUMONIA, ANXIETY WITH DEPRESSION Physical Exam Vital Signs: Temp Pulse Resp BP Pulse Ox 98.8 F 55 L 30 H 141/91 H 100 12/20/18 12:00 12/20/18 14:00 12/20/18 14:00 12/20/18 14:00 12/20/18 14:00 Intake & Output 12/19/18 12/20/18 12/21/18 06:59 06:59 06:59 Intake Total 1579 3336 1479 Output Total 2075 2655 830 Balance -496 681 649 Weight 195 lb 1.745 oz 204 lb 12.951 oz General appearance: PRESENT: no acute distress Head exam: PRESENT: atraumatic, normocephalic Eye exam: PRESENT: scleral icterus Mouth exam: PRESENT: other - ett noted Respiratory exam: PRESENT: decreased breath sounds, symmetrical Cardiovascular exam: PRESENT: +S1, +S2 GI/Abdominal exam: PRESENT: hypoactive bowel sounds, soft, other - feeding tube noted Gentrourinary exam: PRESENT: other - farr noted Extremities exam: PRESENT: +1 edema - bilateral LE Musculoskeletal exam: PRESENT: other - left LE cold compared to right Neurological exam: PRESENT: other - sedated- retracts to pain when sedation is lowered Skin exam: ABSENT: cyanosis, mottled Results Laboratory Results: 12/20/18 03:43 12/20/18 03:43 12/20/18 12/20/18 12/20/18 03:22 03:43 03:43 WBC 10.6 H RBC 3.02 L Hgb 9.5 L Hct 27.4 L MCV 91 MCH 31.4 MCHC 34.6 RDW 13.8 Plt Count 554 H Seg Neutrophils % Not Reportable Lymphocytes % Not Reportable Monocytes % Not Reportable Eosinophils % Not Reportable Basophils % Not Reportable Absolute Neutrophils Not Reportable Absolute Lymphocytes Not Reportable Absolute Monocytes Not Reportable Absolute Eosinophils Not Reportable Absolute Basophils Not Reportable Carbonic Acid 0.82 L HCO3/H2CO3 Ratio 25:1 ABG pH 7.49 H ABG pCO2 27.4 L ABG pO2 60.5 L ABG HCO3 20.6 ABG O2 Saturation 93.5 L ABG Base Excess -1.8 FiO2 40% Sodium 136.0 L Potassium 4.1 Chloride 108 H Carbon Dioxide 22 Anion Gap 6 BUN 10 Creatinine 0.67 Est GFR ( Amer) > 60 Est GFR (Non-Af Amer) > 60 Glucose 116 H Calcium 7.9 L Magnesium 2.2 Total Bilirubin 0.4 AST 160 H Alkaline Phosphatase 174 H Total Protein 4.4 L Albumin 2.4 L 12/15/18 13:55 Blood Blood Culture - Final NO GROWTH IN 5 DAYS 12/15/18 13:50 Blood Blood Culture - Final NO GROWTH IN 5 DAYS 12/15/18 13:55 Troponin I < 0.012 Impressions: Chest CT 12/15/18 00:00 IMPRESSION: Mediastinal and hilar lymphadenopathy.Diffuse interstitial - n odular and ground-glass opacities are present throughout both lungs, upper lobe predominance. No pleural effusion. IMPRESSION: Asymmetric thickening of the bladder wall, left side measures 8 mm thickness. Numerous areas of lymphadenopathy are seen in the external iliac and common iliac chains bilaterally, right greater than left. Head CT 12/15/18 15:18 IMPRESSION: NO ACUTE INTRACRANIAL FINDINGS. EVIDENCE OF ACUTE STROKE: NO. Soft Tissue Neck CT 12/15/18 15:18 IMPRESSION: Mild bilateral cervical level 4 and supraclavicular adenopathy. Coarse interstitial -nodular and ground-glass opacities throughout both upper lobes.Upper mediastinal adenopathy. Abdomen/Pelvis CT 12/15/18 15:19 IMPRESSION: Mediastinal and hilar lymphadenopathy.Diffuse interstitial - nodular and ground-glass opacities are present throughout both lungs, upper lobe predominance. No pleural effusion. IMPRESSION: Asymmetric thickening of the bladder wall, left side measures 8 mm thickness. Numerous areas of lymphadenopathy are seen in the external iliac and common iliac chains bilaterally, right greater than left. Chest X-Ray 12/20/18 06:00 IMPRESSION: Endotracheal tube has been advanced with tip 3.3 cm above the mark. Persistent left retrocardiac opacities, possibly atelectasis or infection, with small left effusion. KUB X-Ray 12/20/18 08:03 IMPRESSION: Nasoenteric tube tip overlies gastric body. Assessment and Plan - Diagnosis (1) Acute respiratory failure with hypoxia Is this a current diagnosis for this admission?: Yes (2) Alcohol abuse Is this a current diagnosis for this admission?: Yes (3) Hypoalbuminemia Is this a current diagnosis for this admission?: Yes (4) Hypocalcemia Is this a current diagnosis for this admission?: Yes (5) Pneumonia Qualifiers: Pneumonia type: due to unspecified organism Laterality: bilateral Lung location: unspecified part of lung Qualified Code(s): J18.9 - Pneumonia, unspecified organism Is this a current diagnosis for this admission?: Yes (6) Respiratory distress Is this a current diagnosis for this admission?: Yes (7) Ventilator dependent Is this a current diagnosis for this admission?: Yes (8) Elevated LFTs Is this a current diagnosis for this admission?: Yes (9) Sepsis Is this a current diagnosis for this admission?: Yes - Time Total Critical Time (Minutes): 35 - Inpatient Certification Based on my medical assessment, after consideration of the patient's comorbidities, presenting symptoms, or acuity I expect that the services needed warrant INPATIENT care.: Yes I certify that my determination is in accordance with my understanding of Medicare's requirements for reasonable and necessary INPATIENT services [42 CFR 412.3e].: Yes Medical Necessity: Failure to Improve With Outpatient Therapy, Significant Comorbidiites Make Outpatient Treatment Too Risky, Need For Continuous Telemetry Monitoring, Need for IV Antibiotics, Risk of Complication if Not Cared For in Hospital - Plan Summary Plan Summary: Sepsis-most likely secondary to suspected community-acquired pneumonia. Currently he is on IV Rocephin and azithromycin. Chest x-ray does show persistent opacity of the left side. Given his history of alcohol and I am wondering if he could have some aspiration pneumonia involved. Per nursing he has been spiking low-grade temperatures even on antibiotics. Infectious disease was consulted from [facility] and I appreciate their assistance. As per infectious disease they recommend continue with azithromycin but possibly stop the Rocephin. They are concerned even though the Legionella was negative that it has a low sensitivity and hence it could still be Legionella pneumonitis. Other causes have also been suggested such as gout or DVT for his low-grade fever. So far all his other cultures have been negative Acute respiratory failure-most likely secondary to above but there is some concern since he still requiring a lot of oxygen and difficult to wean off. Currently he is on Ativan and propofol drip. He is currently intubated and on the ventilator. Spoke with nursing about possibly weaning him down and giving him sedation vacation to start SBT. Spoke with Dr. Guzman in the intensive care unit regarding his vent settings and he has adjusted it. I did review his ABG today which is surprising as it seems though he has some metabolic alkalosis with a pH is 7.49, PCO2 of 27, bicarb of 60 and a O2 saturation of 93%. After speaking with Dr. Guzman there is some concern about his pulmonary status-given this we will go ahead and get a CTA of the chest to rule out a PE. I spoke with patient mother and stepfather regarding consent for CTA and they have agreed. He did have left lower extremity which was cooler than his right-we did get arterial duplex to rule out any occlusion but results were negative. Ventilator dependent-continue with ventilator dependent protocols to decrease any further pneumonia or aspiration. Elevated LFTs-remains elevated although better than on arrival. Most likely secondary to his history of alcohol abuse Hypercalcemia-seems to be improving. Hypoalbuminemia-most likely secondary to his alcohol abuse history.
[2018-12-20] MEDS ORDERED: CEFTRIAXONE SODIUM 1,000 MG in DEXTROSE 5%-WATER 50 ML IV SCH (17:00)
--- NOTE | 2018-12-20 17:03 | RADIOLOGY REPORT (SQ) ---
EXAM DESCRIPTION: CTA CHEST COMPLETED DATE/TIME: 12/20/2018 4:47 pm REASON FOR STUDY: r/o pe COMPARISON: 12/15/2018 TECHNIQUE: CT scan of the chest performed using helical scanning technique with dynamic intravenous contrast injection. Images reviewed with lung, soft tissue and bone windows. Reconstructed coronal and sagittal MPR images reviewed. Additional 3 dimensional post-processing performed to develop Maximal Intensity Projection images (CO P). All images stored on PACS. All CT scanners at this facility use dose modulation, iterative reconstruction, and/or weight based d osing when appropriate to reduce radiation dose to as low as reasonably achievable (ALARA). [facility]: Dose Right [facility]: CareDose [facility]: Dose Right [facility]: Teradose 4D [facility]: PromoteU CONTRAST TYPE AND DOSE: contrast/concentration: Isovue 350.00 mg/ml; Total Contrast Delivered: 80.0 ml; Total Saline Delivered: 80.0 ml 80 mL Omnipaque 350- low osmolar. Contrast bolus adequate for pulmonary arteries and aorta. RENAL FUNCTION: BUN 10 creatinine 0.67 RADIATION DOSE: CT Rad equipment meets quality standard of care and radiation dose reduction techniq ues were employed. CTDIvol: 13.9 - 30.0 mGy. DLP: 559 mGy-cm. . LIMITATIONS: None. FINDINGS: LUNGS AND PLEURA: There is marked opacification in both lower lobes. Air bronchograms are present. Pleural effusions are seen bilaterally. AORTA AND GREAT VESSELS: No aneurysm. No dissection. HEART: No pericardial effusion. No significant coronary artery calcifications. PULMONARY ARTERIES: No emboli visualized in the main pulmonary arteries or the segmental branches. HILAR AND MEDIASTINAL STRUCTURES: No identified masses or abnormal nodes. HARDWARE: None in the chest. UPPER ABDOMEN: There appears to be some fluid around the upper spleen and beneath the left hemidiaphr agm. THYROID AND OTHER SOFT TISSUES: No masses. No adenopathy. BONES: No acute or significant finding. 3D MIPS: Confirm above findings. OTHER: No other significant finding. IMPRESSION: 1. There is no pulmonary embolus. There is no aortic aneurysm or dissection. 2. Small pleural effusions bilaterally. Considerable airspace disease in both lower lobes, atelecta sis versus pneumonia. 3. There is fluid in the left upper quadrant of the abdomen. COMMENT: Quality ID # [id number]: Final reports with documentation of one or more dose reduction techniques (e.g., Automated exposure control, adjustment of the mA and/or kV according to patient size, use of iterative reconstruction technique) TECHNICAL DOCUMENTATION: JOB ID: [id number] [employer]- All Rights Reserved Reading location - IP/workstation name: [email or web address]
[2018-12-20] MEDS: NORMAL SALINE 1000 ML 1,000 ML IV PRN (18:36)
[2018-12-20] MEDS: AZITHROMYCIN 500 MG in DEXTROSE 5%-WATER 250 ML IV SCH (18:37)
[2018-12-20] MEDS: NORMAL SALINE 1000 ML 1,000 ML with POTASSIUM CHLORIDE 20 MEQ, MAGNESIUM SULFATE 8 MEQ,... IV SCH ×5 (18:38)
[2018-12-20] MEDS: ATORVASTATIN CALCIUM 20 MG TABLET NG SCH (21:04)
[2018-12-21] MEDS: PROPOFOL 1,000 MG/100 ML INFUS..BTL IV PRN ×3 (01:26→21:50)
[2018-12-21] MEDS: GUAIFENESIN SYRP 200 MG/10 ML UDC NG SCH ×6 (01:27→21:45)
[2018-12-21 04:05] LABS: ARTERIAL BLOOD BASE EXCESS 1.4 mmol/L; ARTERIAL BLOOD H2CO3 1.16 mmol/L (1.05-1.35); ARTERIAL BLOOD HCO3 25.5 mmol/L (20-24); ARTERIAL BLOOD O2 SATURATION 96.6 % (94-98); ARTERIAL BLOOD PCO2 38.5 mmHg (35-45); ARTERIAL BLOOD PH 7.44 (7.35-7.45); ARTERIAL BLOOD PO2 83.3 mmHg (80-100); ARTERIAL BLOOD TOTAL CO2 26.7 mmol/L (23-27)
[2018-12-21 04:23] LABS: HEMATOCRIT 30.5 % (37.9-51.0); HEMOGLOBIN 10.3 g/dL (13.5-17.0); MEAN CORPUSCULAR HEMOGLOBIN 30.5 pg (27.0-33.4); MEAN CORPUSCULAR HGB CONC 33.7 g/dL (32.0-36.0); MEAN CORPUSCULAR VOLUME 91 fl (80-97); PLATELET COUNT 678 10^3/uL (150-450); RED BLOOD COUNT 3.37 10^6/uL (4.35-5.55); RED CELL DISTRIBUTION WIDTH 13.7 % (11.5-14.0); WHITE BLOOD COUNT 10.3 10^3/uL (4.0-10.5)
[2018-12-21 04:45] LABS: ANION GAP 8 (5-19); BLOOD UREA NITROGEN 10 mg/dL (7-20); CALCIUM 8.1 mg/dL (8.4-10.2); CARBON DIOXIDE 23 mmol/L (22-30); CHLORIDE 105 mmol/L (98-107); GLUCOSE 118 mg/dL (75-110); POTASSIUM 4.4 mmol/L (3.6-5.0)
[2018-12-21 04:56] LABS: ABSOLUTE LYMPHOCYTES# (MANUAL) 1.3 10^3/uL (0.5-4.7); ABSOLUTE MONOCYTES # (MANUAL) 1.1 10^3/uL (0.1-1.4); BAND NEUTROPHILS % (MANUAL) 3 % (3-5); BASOPHILS % (MANUAL) 0 % (0-2); EOSINOPHILS % (MANUAL) 1 % (0-6); LYMPHOCYTES % (MANUAL) 13 % (13-45); MONOCYTES % (MANUAL) 11 % (3-13); SEGMENTED NEUTROPHILS % (MAN) 72 % (42-78); TOTAL CELLS COUNTED 100
[2018-12-21 04:58] LABS: HYPOCHROMASIA 2+; PLATELET COMMENT INCREASED
[2018-12-21] MEDS: NORMAL SALINE 1000 ML 1,000 ML IV PRN (07:05)
[2018-12-21] MEDS: ENOXAPARIN SODIUM INJ 40 MG/0.4 ML DISP.SYRIN SUBCUT SCH (10:18)
[2018-12-21] MEDS: PANTOPRAZOLE SODIUM 40 MG VIAL IV SCH (10:18)
[2018-12-21] MEDS ORDERED: MIDAZOLAM 2 MG/2 ML INJ ONE (10:26)
[2018-12-21] MEDS: MIDAZOLAM 2 MG/2 ML INJ IV PRN ×2 (10:30→20:31)
--- NOTE | 2018-12-21 10:53 | RADIOLOGY REPORT (SQ) ---
EXAM DESCRIPTION: CHEST SINGLE VIEW COMPLETED DATE/TIME: 12/21/2018 7:08 am REASON FOR STUDY: resp failure COMPARISON: 12/20/2018. EXAM PARAMETERS: NUMBER OF VIEWS: One view. TECHNIQUE: Single frontal radiographic view of the chest acquired. RADIATION DOSE: NA LIMITATIONS: None. FINDINGS: LUNGS AND PLEURA: Scattered airspace disease in the lung bases. Left pleural effusion. MEDIASTINUM AND HILAR STRUCTURES: No masses. Contour normal. HEART AND VASCULAR STRUCTURES: Heart normal in size. Normal vasculature. BONES: No acute findings. HARDWARE: Stable endotracheal tube and nasogastric tube. OTHER: No other significant finding. IMPRESSION: NO SIGNIFICANT CHANGE IN APPEARANCE OF THE CHEST. TECHNICAL DOCUMENTATION: JOB ID: [id number] [employer]- All Rights Reserved Reading location - IP/workstation name: [email or web address]
--- NOTE | 2018-12-21 16:36 | PDOC PROGRESS REPORT ---
Subjective Progress Note for:: 12/21/18 Subjective:: seen on rounds this morning in the ICU he remains ventilated - sedation has been turned down- he's able to nod and answer basic questions. his son is at bedside and i updated him on his care plan Reason For Visit: PNEUMONIA, ANXIETY WITH DEPRESSION Physical Exam Vital Signs: Temp Pulse Resp BP Pulse Ox 97.7 F 50 L 31 H 136/83 H 100 12/21/18 08:00 12/21/18 08:00 12/21/18 08:00 12/21/18 08:00 12/21/18 08:35 Intake & Output 12/20/18 12/21/18 12/22/18 06:59 06:59 06:59 Intake Total 3336 3403 1046 Output Total 2655 2655 0 Balance 872 460 7836 Weight 204 lb 12.951 oz 199 lb 8.293 oz General appearance: PRESENT: no acute distress, other - remains on the ventilator Head exam: PRESENT: atraumatic, normocephalic Eye exam: ABSENT: scleral icterus Mouth exam: PRESENT: moist, other - ETT noted Neck exam: ABSENT: tracheal deviation Respiratory exam: PRESENT: clear to auscultation alyx, symmetrical. ABSENT: unlabored, wheezes Cardiovascular exam: PRESENT: +S1, +S2 Pulses: PRESENT: +1 pedal pulses bilateral GI/Abdominal exam: PRESENT: normal bowel sounds, soft. ABSENT: tenderness Extremities exam: PRESENT: pedal edema Neurological exam: PRESENT: awake, other - able to squeeze hands and follow commands nods to questions bilateral LE both equal in temp Psychiatric exam: ABSENT: agitated Skin exam: PRESENT: dry, warm Results Laboratory Results: 12/21/18 04:06 12/21/18 04:06 12/21/18 12/21/18 12/21/18 03:26 04:06 04:06 WBC 10.3 RBC 3.37 L Hgb 10.3 L Hct 30.5 L MCV 91 MCH 30.5 MCHC 33.7 RDW 13.7 Plt Count 678 H Seg Neutrophils % Not Reportable Lymphocytes % Not Reportable Monocytes % Not Reportable Eosinophils % Not Reportable Basophils % Not Reportable Absolute Neutrophils Not Reportable Absolute Lymphocytes Not Reportable Absolute Monocytes Not Reportable Absolute Eosinophils Not Reportable Absolute Basophils Not Reportable Carbonic Acid 1.16 HCO3/H2CO3 Ratio 21:1 ABG pH 7.44 ABG pCO2 38.5 ABG pO2 83.3 ABG HCO3 25.5 H ABG O2 Saturation 96.6 ABG Base Excess 1.4 FiO2 55% Sodium 136.0 L Potassium 4.4 Chloride 105 Carbon Dioxide 23 Anion Gap 8 BUN 10 Creatinine 0.66 Est GFR ( Amer) > 60 Est GFR (Non-Af Amer) > 60 Glucose 118 H Calcium 8.1 L Magnesium 2.2 12/19/18 11:40 Dorantes Catheter Urine Culture - Final NO GROWTH 2 DAYS 12/15/18 13:55 Blood Blood Culture - Final NO GROWTH IN 5 DAYS 12/15/18 13:50 Blood Blood Culture - Final NO GROWTH IN 5 DAYS 12/15/18 13:55 Troponin I < 0.012 Impressions: Chest CT 12/15/18 00:00 IMPRESSION: Mediastinal and hilar lymphadenopathy.Diffuse interstitial - nodular and ground-glass opacities are present throughout both lungs, upper lobe predominance. No pleural effusion. IMPRESSION: Asymmetric thickening of the bladder wall, left side measures 8 mm thickness. Numerous areas of lymphadenopathy are seen in the external iliac and common iliac chains bilaterally, right greater than left. Head CT 12/15/18 15:18 IMPRESSION: NO ACUTE INTRACRANIAL FINDINGS. EVIDENCE OF ACUTE STROKE: NO. Soft Tissue Neck CT 12/15/18 15:18 IMPRESSION: Mild bilateral cervical level 4 and supraclavicular adenopathy. Coarse interstitial -nodular and ground-glass opacities throughout both upper lobes.Upper mediastinal adenopathy. Abdomen/Pelvis CT 12/15/18 15:19 IMPRESSION: Mediastinal and hilar lymphadenopathy.Diffuse interstitial - nodular and ground-glass opacities are present throughout both lungs, upper lobe predominance. No pleural effusion. IMPRESSION: Asymmetric thickening of the bladder wall, left side measures 8 mm thickness. Numerous areas of lymphadenopathy are seen in the external iliac and common iliac chains bilaterally, right greater than left. Chest/Abdomen CTA 12/20/18 00:00 IMPRESSION: 1. There is no pulmonary embolus. There is no aortic aneurysm or dissection. 2. Small pleural effusions bilaterally. Considerable airspace disease in both lower lobes, atelectasis versus pneumonia. 3. There is fluid in the left upper quadrant of the abdomen. KUB X-Ray 12/20/18 08:03 IMPRESSION: Nasoenteric tube tip overlies gastric body. Assessment and Plan - Diagnosis (1) Acute respiratory failure with hypoxia Is this a current diagnosis for this admission?: Yes (2) Alcohol abuse Is this a current diagnosis for this admission?: Yes (3) Hypoalbuminemia Is this a current diagnosis for this admission?: Yes (4) Hypocalcemia Is this a current diagnosis for this admission?: Yes (5) Pneumonia Qualifiers: Pneumonia type: due to unspecified organism Laterality: bilateral Lung location: unspecified part of lung Qualified Code(s): J18.9 - Pneumonia, unspecified organism Is this a current diagnosis for this admission?: Yes (6) Respiratory distress Is this a current diagnosis for this admission?: Yes (7) Ventilator dependent Is this a current diagnosis for this admission?: Yes (8) Elevated LFTs Is this a current diagnosis for this admission?: Yes (9) Sepsis Is this a current diagnosis for this admission?: Yes - Time Total Critical Time (Minutes): 35 - Inpatient Certification Based on my medical assessment, after consideration of the patient's comorbid ities, presenting symptoms, or acuity I expect that the services needed warrant INPATIENT care.: Yes I certify that my determination is in accordance with my understanding of Medicare's requirements for reasonable and necessary INPATIENT services [42 CFR 412.3e].: Yes Medical Necessity: Failure to Improve With Outpatient Therapy, Significant Comorbidiites Make Outpatient Treatment Too Risky, Need For IV Fluids, Need for IV Antibiotics - Plan Summary Plan Summary: Sepsis-most likely secondary to suspected community-acquired pneumonia. Infectious disease recommends stopping Rocephin and continue with azithromycin at this time. I have stopped his Rocephin today. I believe today is day 6 of azithromycin-and we may stop after 7 to 10 days of antibiotics. He remains afebrile. Chest x-ray does show persistent opacity of the left side- he had CTA chest for concern of PE- negative study- but does show bibasilar opacties. ?pneumonia vs atelectasis. afebrile overnight. Infectious disease was consulted from [facility] [place] and I appreciate their assistance. As per infectious disease they recommend continue with azithromycin but possibly stop the Rocephin. They are concerned even though the Legionella was negative that it has a low sensitivity and hence it could still be Legionella pneumonitis. Other causes have also been suggested such as gout or DVT for his low-grade fever. So far all his other cultures have been negative. Acute respiratory failure-remains on the ventilator at this time. Although he is doing much better today as he is off the Ativan and currently only on pro pofol of 10 mics. We have decreased his FiO2 to 40% at this time-he is doing much better on the vent today. I spoke with his son at bedside and I think the plan would be to wean him and get him off the ventilator within the next 1 to 2 days. I spoke with Dr. Guzman and he also agrees with the plan. Repeat ABG in the morning. Continue with propofol for sedation. Actually Ventilator dependent-continue with ventilator dependent protocols to decrease any further pneumonia or aspiration. Elevated LFTs-remains elevated although better than on arrival. Most likely secondary to his history of alcohol abuse Hypercalcemia-seems to be improving. Hypoalbuminemia-most likely secondary to his alcohol abuse history.
[2018-12-21] MEDS: NORMAL SALINE 1000 ML 1,000 ML with POTASSIUM CHLORIDE 20 MEQ, MAGNESIUM SULFATE 8 MEQ,... IV SCH ×5 (18:22)
[2018-12-21] MEDS: AZITHROMYCIN 500 MG in DEXTROSE 5%-WATER 250 ML IV SCH (18:22)
[2018-12-21] MEDS: DIAZEPAM INJ 10 MG/2 ML DISP.SYRIN IV PRN (21:41)
[2018-12-21] MEDS: ATORVASTATIN CALCIUM 20 MG TABLET NG SCH (21:45)
[2018-12-22] MEDS: MIDAZOLAM 2 MG/2 ML INJ IV PRN (00:09)
[2018-12-22] MEDS: GUAIFENESIN SYRP 200 MG/10 ML UDC NG SCH ×6 (02:16→21:55)
[2018-12-22] MEDS: PROPOFOL 1,000 MG/100 ML INFUS..BTL IV PRN (02:16)
[2018-12-22 03:22] LABS: ARTERIAL BLOOD BASE EXCESS 2.2 mmol/L; ARTERIAL BLOOD H2CO3 1.13 mmol/L (1.05-1.35); ARTERIAL BLOOD O2 SATURATION 95.9 % (94-98); ARTERIAL BLOOD PCO2 37.6 mmHg (35-45); ARTERIAL BLOOD PH 7.46 (7.35-7.45); ARTERIAL BLOOD PO2 75.9 mmHg (80-100); ARTERIAL BLOOD TOTAL CO2 27.2 mmol/L (23-27)
[2018-12-22 03:23] LABS: ARTERIAL BLOOD FIO2 40%
[2018-12-22 04:18] LABS: ANION GAP 6 (5-19); BLOOD UREA NITROGEN 11 mg/dL (7-20); CALCIUM 8.4 mg/dL (8.4-10.2); CARBON DIOXIDE 26 mmol/L (22-30); CHLORIDE 105 mmol/L (98-107); GLUCOSE 125 mg/dL (75-110); POTASSIUM 4.5 mmol/L (3.6-5.0)
[2018-12-22] MEDS ORDERED: NORMAL SALINE 1000 ML 1,000 ML IV PRN (08:52)
--- NOTE | 2018-12-22 09:45 | RADIOLOGY REPORT (SQ) ---
EXAM DESCRIPTION: CHEST SINGLE VIEW COMPLETED DATE/TIME: 12/22/2018 6:30 am REASON FOR STUDY: RESP FAILURE COMPARISON: 12/21/2018. EXAM PARAMETERS: NUMBER OF VIEWS: One view. TECHNIQUE: Single frontal radiographic view of the chest acquired. RADIATION DOSE: NA LIMITATIONS: None. FINDINGS: LUNGS AND PLEURA: Scattered bilateral airspace disease. No large pleural effusion. MEDIASTINUM AND HILAR STRUCTURES: No masses. Contour normal. HEART AND VASCULAR STRUCTURES: Heart normal in size. Normal vasculature. BONES: No acute findings. HARDWARE: Stable endotracheal tube and nasogastric tube. OTHER: No other significant finding. IMPRESSION: NO SIGNIFICANT CHANGE IN APPEARANCE OF THE CHEST. TECHNICAL DOCUMENTATION: JOB ID: [id number]- All Rights Reserved Reading location - IP/workstation name: [email or web address]
[2018-12-22] MEDS: PANTOPRAZOLE SODIUM 40 MG VIAL IV SCH (10:39)
[2018-12-22] MEDS: ENOXAPARIN SODIUM INJ 40 MG/0.4 ML DISP.SYRIN SUBCUT SCH (10:39)
--- NOTE | 2018-12-22 12:03 | PDOC PROGRESS REPORT ---
Subjective Progress Note for:: 12/22/18 Subjective:: Seen on rounds this morning while he was still intubated in the ICU. Sedation was turned down overnight and he became agitated hence propofol was turned back up again. We did try him on pressure support yesterday and it did well. This morning be tried on pressure support he did become a little tachypneic but maintaining his sats greater than 90%. Spoke with Dr. Guzman about possible extubation later this morning after he evaluates the patient on rounds himself. Reason For Visit: PNEUMONIA, ANXIETY WITH DEPRESSION Physical Exam Vital Signs: Temp Pulse Resp BP Pulse Ox 98.2 F 64 12 160/88 H 95 12/22/18 10:00 12/22/18 10:45 12/22/18 11:00 12/22/18 10:51 12/22/18 11:00 Intake & Output 12/21/18 12/22/18 12/23/18 06:59 06:59 06:59 Intake Total 3403 3534 Output Total 2655 4625 1240 Balance 748 -1091 -1240 Weight 199 lb 8.293 oz 197 lb 5.019 oz General appearance: PRESENT: no acute distress Head exam: PRESENT: atraumatic, normocephalic Eye exam: ABSENT: scleral icterus Ear exam: PRESENT: normal external ear exam Mouth exam: PRESENT: other - ET tube in mouth Cardiovascular exam: PRESENT: +S1, +S2 Pulses: PRESENT: +1 pedal pulses bilateral GI/Abdominal exam: PRESENT: normal bowel sounds, soft. ABSENT: tenderness Extremities exam: PRESENT: pedal edema, +1 edema - Mostly of the hands and some pedal Neurological exam: PRESENT: other - Remains on the vent and sedated. Does retract to pain. Skin exam: PRESENT: dry, warm Results Laboratory Results: 12/21/18 04:06 12/22/18 03:53 12/22/18 12/22/18 03:15 03:53 Carbonic Acid 1.13 HCO3/H2CO3 Ratio 23:1 ABG pH 7.46 H ABG pCO2 37.6 ABG pO2 75.9 L ABG HCO3 26.0 H ABG O2 Saturation 95.9 ABG Base Excess 2.2 FiO2 40% Sodium 137.1 Potassium 4.5 Chloride 105 Carbon Dioxide 26 Anion Gap 6 BUN 11 Creatinine 0.68 Est GFR ( Amer) > 60 Est GFR (Non-Af Amer) > 60 Glucose 125 H Calcium 8.4 Magnesium 2.3 12/20/18 10:15 Nasophary (Mrsa Only) MRSA Culture - Final NO MRSA RECOVERED 12/19/18 11:40 Tracheal Aspirate Gram Stain - Final 12/19/18 11:40 Tracheal Aspirate Sputum Culture - Final Greatly Reduced Normal Patience 12/19/18 11:40 Dorantes Catheter Urine Culture - Final NO GROWTH 2 DAYS 12/15/18 13:55 Troponin I < 0.012 Impressions: Chest CT 12/15/18 00:00 IMPRESSION: Mediastinal and hilar lymphadenopathy.Diffuse interstitial - nodular and ground-glass opacities are present throughout both lungs, upper lobe predominance. No pleural effusion. IMPRESSION: Asymmetric thickening of the bladder wall, left side measures 8 mm thickness. Numerous areas of lymphadenopathy are seen in the external iliac and common iliac chains bilaterally, right greater than left. Head CT 12/15/18 15:18 IMPRESSION: NO ACUTE INTRACRANIAL FINDINGS. EVIDENCE OF ACUTE STROKE: NO. Soft Tissue Neck CT 12/15/18 15:18 IMPRESSION: Mild bilateral cervical level 4 and supraclavicular adenopathy. Coarse interstitial -nodular and ground-glass opacities throughout both upper lobes.Upper mediastinal adenopathy. Abdomen/Pelvis CT 12/15/18 15:19 IMPRESSION: Mediastinal and hilar lymphadenopathy.Diffuse interstitial - n odular and ground-glass opacities are present throughout both lungs, upper lobe predominance. No pleural effusion. IMPRESSION: Asymmetric thickening of the bladder wall, left side measures 8 mm thickness. Numerous areas of lymphadenopathy are seen in the external iliac and common iliac chains bilaterally, right greater than left. Chest/Abdomen CTA 12/20/18 00:00 IMPRESSION: 1. There is no pulmonary embolus. There is no aortic aneurysm or dissection. 2. Small pleural effusions bilaterally. Considerable airspace disease in both lower lobes, atelectasis versus pneumonia. 3. There is fluid in the left upper quadrant of the abdomen. KUB X-Ray 12/20/18 08:03 IMPRESSION: Nasoenteric tube tip overlies gastric body. Chest X-Ray 12/22/18 06:00 IMPRESSION: NO SIGNIFICANT CHANGE IN APPEARANCE OF THE CHEST. Assessment and Plan - Diagnosis (1) Acute respiratory failure with hypoxia Is this a current diagnosis for this admission?: Yes (2) Alcohol abuse Is this a current diagnosis for this admission?: Yes (3) Hypoalbuminemia Is this a current diagnosis for this admission?: Yes (4) Hypocalcemia Is this a current diagnosis for this admission?: Yes (5) Pneumonia Qualifiers: Pneumonia type: due to unspecified organism Laterality: bilateral Lung location: unspecified part of lung Qualified Code(s): J18.9 - Pneumonia, unspecified organism Is this a current diagnosis for this admission?: Yes (6) Respiratory distress Is this a current diagnosis for this admission?: Yes (7) Ventilator dependent Is this a current diagnosis for this admission?: Yes (8) Elevated LFTs Is this a current diagnosis for this admission?: Yes (9) Sepsis Is this a current diagnosis for this admission?: Yes - Time Time Spent with patient: 35 or more minutes Anticipated discharge: Acute Rehab - Inpatient Certification Based on my medical assessment, after consideration of the patient's comor bidities, presenting symptoms, or acuity I expect that the services needed warrant INPATIENT care.: Yes I certify that my determination is in accordance with my understanding of Medicare's requirements for reasonable and necessary INPATIENT services [42 CFR 412.3e].: Yes Medical Necessity: Failure to Improve With Outpatient Therapy, Significant Comorbidiites Make Outpatient Treatment Too Risky, Need for IV Antibiotics, Risk of Complication if Not Cared For in Hospital - Plan Summary Plan Summary: Sepsis-most likely secondary to suspected community-acquired pneumonia. Continue with IV azithromycin, likely day 7 of antibiotics now. He remains afebrile. Chest x-ray does show persistent opacity of the left side- he had CTA chest for concern of PE- negative study- but does show bibasilar opacties. ?pneumonia vs atelectasis. Infectious disease was consulted [place] [facility] [place] and I appreciate their assistance. As per infectious disease they recommend continue with azithromycin but possibly stop the Rocephin. They are concerned even though the Legionella was negative that it has a low sensitivity and hence it could still be Legionella pneumonitis. Other causes have also been suggested such as gout or DVT for his low-grade fever. So far all his other cultures have been negative. Wean down IV fluids as he is somewhat edematous. We will consider giving him some Lasix Acute respiratory failure-remains on the ventilator at this time. He was on pressure support yesterday and did well in the morning. Plan was to possibly extubate this morning. Overnight he did well on the vent. Plan is to put on pressure support again-Per nursing this morning earlier he was a little bit tac hypneic off the vent otherwise his oxygen saturation was greater than 90%. Spoke with Dr. Guzman about possible extubation this morning and he will evaluate patient and hopefully we can extubate him. Ventilator dependent-possibly extubate this late morning. Elevated LFTs-remains elevated although better than on arrival. Most likely secondary to his history of alcohol abuse Hypercalcemia-seems to be improving. Hypoalbuminemia-most likely secondary to his alcohol abuse history.
[2018-12-22] MEDS: DIAZEPAM INJ 10 MG/2 ML DISP.SYRIN IV PRN ×3 (16:00→21:55)
[2018-12-22] MEDS: ACETAMINOPHEN SOLN 325 MG/10.15 ML UDCUP NG PRN (16:00)
[2018-12-22] MEDS: AZITHROMYCIN 500 MG in DEXTROSE 5%-WATER 250 ML IV SCH (18:38)
[2018-12-22] MEDS: ACETYLCYSTEINE 20% SOLN 800 MG/4 ML VIAL.NEB NEB SCH (21:18)
[2018-12-22] MEDS: IPRATROPIUM/ALBUTEROL 0.5-2.5 MG/3 ML AMPUL NEB PRN (21:19)
[2018-12-22] MEDS: ATORVASTATIN CALCIUM 20 MG TABLET NG SCH (21:55)
[2018-12-23] MEDS ORDERED: CHLORPROMAZINE HCL INJ 25 MG/1 ML AMPULE ONE (00:30)
[2018-12-23] MEDS: CHLORPROMAZINE HCL INJ 25 MG/1 ML AMPULE IV PRN (00:33)
[2018-12-23] MEDS ORDERED: TRAZODONE HCL 50 MG TABLET PO ONE (03:00)
[2018-12-23] MEDS: GUAIFENESIN SYRP 200 MG/10 ML UDC NG SCH ×6 (03:29→22:06)
[2018-12-23 03:53] LABS: HEMATOCRIT 29.2 % (37.9-51.0); HEMOGLOBIN 10.3 g/dL (13.5-17.0); MEAN CORPUSCULAR HEMOGLOBIN 31.1 pg (27.0-33.4); MEAN CORPUSCULAR HGB CONC 35.2 g/dL (32.0-36.0); MEAN CORPUSCULAR VOLUME 89 fl (80-97); PLATELET COUNT 881 10^3/uL (150-450); RED CELL DISTRIBUTION WIDTH 12.9 % (11.5-14.0); WHITE BLOOD COUNT 16.1 10^3/uL (4.0-10.5)
[2018-12-23 04:07] LABS: ANION GAP 7 (5-19); BLOOD UREA NITROGEN 10 mg/dL (7-20); CALCIUM 8.6 mg/dL (8.4-10.2); CARBON DIOXIDE 28 mmol/L (22-30); CHLORIDE 105 mmol/L (98-107); GLUCOSE 104 mg/dL (75-110)
[2018-12-23 04:40] LABS: ABSOLUTE LYMPHOCYTES# (MANUAL) 1.3 10^3/uL (0.5-4.7); BAND NEUTROPHILS % (MANUAL) 1 % (3-5); BASOPHILS % (MANUAL) 0 % (0-2); EOSINOPHILS % (MANUAL) 0 % (0-6); LYMPHOCYTES % (MANUAL) 8 % (13-45); MONOCYTES % (MANUAL) 6 % (3-13); SEGMENTED NEUTROPHILS % (MAN) 85 % (42-78); TOTAL CELLS COUNTED 100
[2018-12-23 04:44] LABS: RBC MORPHOLOGY COMMENT NORMO-CYTIC/CHROMIC
[2018-12-23 04:45] LABS: PLATELET COMMENT INCREASED
[2018-12-23 05:18] LABS: ARTERIAL BLOOD BASE EXCESS 3.7 mmol/L; ARTERIAL BLOOD H2CO3 1.09 mmol/L (1.05-1.35); ARTERIAL BLOOD HCO3 27.1 mmol/L (20-24); ARTERIAL BLOOD O2 SATURATION 93.8 % (94-98); ARTERIAL BLOOD PCO2 36.1 mmHg (35-45); ARTERIAL BLOOD PH 7.49 (7.35-7.45); ARTERIAL BLOOD PO2 62.9 mmHg (80-100); ARTERIAL BLOOD TOTAL CO2 28.2 mmol/L (23-27)
[2018-12-23 05:20] LABS: ARTERIAL BLOOD FIO2 2L
[2018-12-23] MEDS: MORPHINE SULFATE 10 MG/ML INJ IV PRN ×2 (06:27→22:11)
[2018-12-23] MEDS: IPRATROPIUM/ALBUTEROL 0.5-2.5 MG/3 ML AMPUL NEB PRN (07:55)
[2018-12-23] MEDS: ACETYLCYSTEINE 20% SOLN 800 MG/4 ML VIAL.NEB NEB SCH ×2 (07:55→21:03)
[2018-12-23] MEDS: ENOXAPARIN SODIUM INJ 40 MG/0.4 ML DISP.SYRIN SUBCUT SCH (10:35)
[2018-12-23] MEDS: PANTOPRAZOLE SODIUM 40 MG VIAL IV SCH (10:36)
[2018-12-23] MEDS: PIPERACILLIN SODIUM/TAZOBACTAM 3.375 GM in NORMAL SALINE 100 ML IV SCH ×2 (13:20→22:07)
--- NOTE | 2018-12-23 14:14 | RADIOLOGY REPORT (SQ) ---
EXAM DESCRIPTION: CHEST SINGLE VIEW COMPLETED DATE/TIME: 12/23/2018 6:29 am REASON FOR STUDY: pna COMPARISON: 12/22/2018 TECHNIQUE: Single frontal radiographic view of the chest acquired. NUMBER OF VIEWS: One view. LIMITATIONS: None. FINDINGS: LUNGS AND PLEURA: No pneumothorax. Similar interstitial opacities and left basilar subseg mental atelectasis. No significant pleural effusion. MEDIASTINUM AND HILAR STRUCTURES: Stable. HEART AND VASCULAR STRUCTURES: Stable. BONES: No acute findings. HARDWARE: None in the chest. OTHER: No other significant finding. IMPRESSION: Similar interstitial opacities and left basilar subsegmental atelectasis. No significan t pleural effusion. TECHNICAL DOCUMENTATION: JOB ID: [id number] [employer]- All Rights Reserved Reading location - IP/workstation name: [facility] You Can
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
[2018-12-23] MEDS: DIAZEPAM INJ 10 MG/2 ML DISP.SYRIN IV PRN (20:04)
[2018-12-23] MEDS: IPRATROPIUM/ALBUTEROL 0.5-2.5 MG/3 ML AMPUL NEB SCH (21:03)
[2018-12-23] MEDS: TRAZODONE HCL 50 MG TABLET PO SCH (22:06)
[2018-12-23] MEDS: ATORVASTATIN CALCIUM 20 MG TABLET NG SCH (22:06)
[2018-12-24] MEDS: GUAIFENESIN SYRP 200 MG/10 ML UDC NG SCH ×6 (01:36→21:07)
[2018-12-24] MEDS: PIPERACILLIN SODIUM/TAZOBACTAM 3.375 GM in NORMAL SALINE 100 ML IV SCH ×4 (04:09→20:51)
[2018-12-24 05:34] LABS: HEMATOCRIT 31.1 % (37.9-51.0); HEMOGLOBIN 10.4 g/dL (13.5-17.0); MEAN CORPUSCULAR HEMOGLOBIN 30.2 pg (27.0-33.4); MEAN CORPUSCULAR HGB CONC 33.5 g/dL (32.0-36.0); MEAN CORPUSCULAR VOLUME 90 fl (80-97); PLATELET COUNT 879 10^3/uL (150-450); RED BLOOD COUNT 3.45 10^6/uL (4.35-5.55); RED CELL DISTRIBUTION WIDTH 13.4 % (11.5-14.0); WHITE BLOOD COUNT 16.4 10^3/uL (4.0-10.5)
[2018-12-24 06:03] LABS: BASOPHILS % (MANUAL) 1 % (0-2); EOSINOPHILS % (MANUAL) 1 % (0-6); HYPOCHROMASIA 1+; LYMPHOCYTES % (MANUAL) 9 % (13-45); MONOCYTES % (MANUAL) 6 % (3-13); PLATELET COMMENT ADEQUATE; SEGMENTED NEUTROPHILS % (MAN) 80 % (42-78); TOTAL CELLS COUNTED 100
[2018-12-24 06:14] LABS: ARTERIAL BLOOD BASE EXCESS 1.7 mmol/L; ARTERIAL BLOOD FIO2 28%; ARTERIAL BLOOD H2CO3 1.21 mmol/L (1.05-1.35); ARTERIAL BLOOD HCO3 26.1 mmol/L (20-24); ARTERIAL BLOOD O2 SATURATION 94.9 % (94-98); ARTERIAL BLOOD PCO2 40.1 mmHg (35-45); ARTERIAL BLOOD PH 7.43 (7.35-7.45); ARTERIAL BLOOD PO2 71.7 mmHg (80-100); ARTERIAL BLOOD TOTAL CO2 27.3 mmol/L (23-27)
--- NOTE | 2018-12-24 08:39 | RADIOLOGY REPORT (SQ) ---
EXAM DESCRIPTION: CHEST SINGLE VIEW COMPLETED DATE/TIME: 12/24/2018 7:53 am REASON FOR STUDY: pna COMPARISON: 12/19/2018, 12/23/2018 EXAM PARAMETERS: NUMBER OF VIEWS: One view. TECHNIQUE: Single frontal radiographic view of the chest acquired. RADIATION DOSE: NA LIMITATIONS: None. FINDINGS: LUNGS AND PLEURA: Basilar parenchymal opacities. No improvement suggests a day however th ere is improvement since the exam of the . No pneumothorax. MEDIASTINUM AND HILAR STRUCTURES: No masses. Contour normal. HEART AND VASCULAR STRUCTURES: Heart normal in size. Normal vasculature. BONES: No acute findings. HARDWARE: None in the chest. OTHER: No other significant finding. IMPRESSION: Basilar opacities stable since yesterday but improved over the . TECHNICAL DOCUMENTATION: JOB ID: [id number] [employer]- All Rights Reserved Reading location - IP/workstation name: [email or web address]
[2018-12-24] MEDS: KETOROLAC TROMETHAMINE INJ/PF 30 MG/1 ML SDV IV PRN ×2 (08:44→21:07)
[2018-12-24] MEDS: IPRATROPIUM/ALBUTEROL 0.5-2.5 MG/3 ML AMPUL NEB SCH ×3 (08:53→19:44)
[2018-12-24] MEDS: ACETYLCYSTEINE 20% SOLN 800 MG/4 ML VIAL.NEB NEB SCH ×2 (08:56→19:44)
[2018-12-24] MEDS: THIAMINE HCL 100 MG TABLET PO SCH (09:09)
[2018-12-24] MEDS: ENOXAPARIN SODIUM INJ 40 MG/0.4 ML DISP.SYRIN SUBCUT SCH (09:09)
[2018-12-24] MEDS: MULTIVITAMIN TABLET PO SCH (09:09)
[2018-12-24] MEDS: FOLIC ACID 1 MG TABLET PO SCH (09:09)
[2018-12-24] MEDS: PANTOPRAZOLE SODIUM 40 MG VIAL IV SCH (09:09)
--- NOTE | 2018-12-24 10:16 | PDOC PROGRESS REPORT ---
Subjective Progress Note for:: 12/24/18 Subjective:: This is 58 years old male patient past medical history of hyperlipidemia and depression with chief complaint of feeling poorly including cough failed to respond to antibiotics as outpatient. His chest x-ray shows bilateral diffuse groundglass opacification. It has been started on antibiotics breathing treatment and supplemental oxygen and admitted to the floor. On the same day patient become combative agitated and transferred to ICU and emergently intubated. Patient extubated 2 days ago and has been doing well so far. This morning I seen patient propped up in bed he is awake alert oriented. He does not have fever, chills, nausea or vomiting. He eats well and tolerates well. Reason For Visit: PNEUMONIA, ANXIETY WITH DEPRESSION Physical Exam Vital Signs: Temp Pulse Resp BP Pulse Ox 98.4 F 76 18 132/81 H 96 12/24/18 07:36 12/24/18 08:58 12/24/18 08:58 12/24/18 07:36 12/24/18 08:58 Intake & Output 12/23/18 12/24/18 12/25/18 06:59 06:59 06:59 Intake Total 1290 600 100 Output Total 5740 3415 Balance -4450 -2815 100 Weight 83.4 kg 80.6 kg General appearance: PRESENT: no acute distress Head exam: PRESENT: atraumatic Mouth exam: PRESENT: moist Neck exam: ABSENT: carotid bruit, JVD, lymphadenopathy, thyromegaly Respiratory exam: PRESENT: clear to auscultation alyx. ABSENT: rales, rhonchi, wheezes Cardiovascular exam: PRESENT: RRR. ABSENT: diastolic murmur, rubs, systolic murmur GI/Abdominal exam: PRESENT: normal bowel sounds, soft. ABSENT: distended, guarding, mass, organolmegaly, rebound, tenderness Neurological exam: PRESENT: alert, awake, oriented to person, oriented to place, oriented to time, oriented to situation Results Laboratory Results: 12/24/18 05:03 12/23/18 03:44 12/24/18 12/24/18 12/24/18 05:03 05:03 05:50 WBC 16.4 H RBC 3.45 L Hgb 10.4 L Hct 31.1 L MCV 90 MCH 30.2 MCHC 33.5 RDW 13.4 Plt Count 879 H Seg Neutrophils % Not Reportable Lymphocytes % Not Reportable Monocytes % Not Reportable Eosinophils % Not Reportable Basophils % Not Reportable Absolute Neutrophils Not Reportable Absolute Lymphocytes Not Reportable Absolute Monocytes Not Reportable Absolute Eosinophils Not Reportable Absolute Basophils Not Reportable Carbonic Acid 1.21 HCO3/H2CO3 Ratio 21:1 ABG pH 7.43 ABG pCO2 40.1 ABG pO2 71.7 L ABG HCO3 26.1 H ABG O2 Saturation 94.9 ABG Base Excess 1.7 FiO2 28% Phosphorus 4.7 H 12/15/18 13:55 Troponin I < 0.012 Impressions: Chest CT 12/15/18 00:00 IMPRESSION: Mediastinal and hilar lymphadenopathy.Diffuse interstitial - nodular and ground-glass opacities are present throughout both lungs, upper lobe predominance. No pleural effusion. IMPRESSION: Asymmetric thickening of the bladder wall, left side measures 8 mm thickness. Numerous areas of lymphadenopathy are seen in the external iliac and common iliac chains bilaterally, right greater than left. Head CT 12/15/18 15:18 IMPRESSION: NO ACUTE INTRACRANIAL FINDINGS. EVIDENCE OF ACUTE STROKE: NO. Soft Tissue Neck CT 12/15/18 15:18 IMPRESSION: Mild bilateral cervical level 4 and supraclavicular adenopathy. Coarse interstitial -nodular and ground-glass opacities throughout both upper lobes.Upper mediastinal adenopathy. Abdomen/Pelvis CT 12/15/18 15:19 IMPRESSION: Mediastinal and hilar lymphadenopathy.Diffuse interstitial - nodular and ground-glass opacities are present throughout both lungs, upper lobe predominance. No pleural effusion. IMPRESSION: Asymmetric thickening of the bladder wall, left side measures 8 mm thickness. Numerous areas of lymphadenopathy are seen in the external iliac and common iliac chains bilaterally, right greater than left. Chest/Abdomen CTA 12/20/18 00:00 IMPRESSION: 1. There is no pulmonary embolus. There is no aortic aneurysm or dissection. 2. Small pleural effusions bilaterally. Considerable airspace disease in both lower lobes, atelectasis versus pneumonia. 3. There is fluid in the left upper quadrant of the abdomen. KUB X-Ray 12/20/18 08:03 IMPRESSION: Nasoenteric tube tip overlies gastric body. Chest X-Ray 12/24/18 06:00 IMPRESSION: Basilar opacities stable since yesterday but improved over the . Assessment and Plan - Diagnosis (1) Acute respiratory failure with hypoxia Is this a current diagnosis for this admission?: Yes Plan: Continue supplemental oxygen and bronchodilators. (2) Bilateral pneumonia Is this a current diagnosis for this admission?: Yes Plan: Yesterday patient switched to Zosyn. (3) Leukocytosis Is this a current diagnosis for this admission?: Yes Plan: I will monitor his CBC. (4) Severe depression Is this a current diagnosis for this admission?: Yes Plan: I will restart him on Remeron (5) Transaminitis Is this a current diagnosis for this admission?: Yes Plan: Improved
--- NOTE | 2018-12-24 16:24 | PSYCHOLOGICAL NOTE ---
Psych Note - Psych Note Date seen by psych provider: 12/24/18 Time seen by psych provider: 10:45 - Discussion with Attending Hospitalist Psych Note: Presenting Problem: Grief, this note is for medication recommendations based on Attending Hospitalist inquiring about continuation of Elavil. Diagnosis: Uncomplicated Bereavement Major Depressive Disorder Medication recommendations made by the psychiatric medical provider, Dr. Lj MD., includes: No Elavil Discontinue Valium Discontinue Thorazine Add Prozac 30MG daily for depression Add Clonidine 0.1MG daily for calming effect Impression/Plan: Medication recommendations for grief related issues. Consulted with Dr. Malcolm regarding the management and care of patient.
[2018-12-24] MEDS: ATORVASTATIN CALCIUM 20 MG TABLET NG SCH (21:07)
[2018-12-24] MEDS: TRAZODONE HCL 50 MG TABLET PO SCH (21:07)
[2018-12-24] MEDS ORDERED: MIRTAZAPINE 15 MG TABLET ONE (21:24)
[2018-12-24] MEDS ORDERED: MIRTAZAPINE 15 MG TABLET PO SCH (22:00)
[2018-12-25] MEDS: PIPERACILLIN SODIUM/TAZOBACTAM 3.375 GM in NORMAL SALINE 100 ML IV SCH ×2 (02:40→09:16)
[2018-12-25] MEDS: GUAIFENESIN SYRP 200 MG/10 ML UDC NG SCH ×2 (02:40→06:02)
[2018-12-25] MEDS: IPRATROPIUM/ALBUTEROL 0.5-2.5 MG/3 ML AMPUL NEB SCH (08:49)
[2018-12-25] MEDS: ACETYLCYSTEINE 20% SOLN 800 MG/4 ML VIAL.NEB NEB SCH (08:49)
[2018-12-25] MEDS: THIAMINE HCL 100 MG TABLET PO SCH (09:16)
[2018-12-25] MEDS: FOLIC ACID 1 MG TABLET PO SCH (09:16)
[2018-12-25] MEDS: MULTIVITAMIN TABLET PO SCH (09:16)
[2018-12-25] MEDS: ENOXAPARIN SODIUM INJ 40 MG/0.4 ML DISP.SYRIN SUBCUT SCH (09:17)
[2018-12-25] MEDS: PANTOPRAZOLE SODIUM 40 MG VIAL IV SCH (09:17)
--- NOTE | 2018-12-25 10:50 | PDOC DISCHARGE SUMMARY ---
General - Admit/Disc Date/PCP Admission Date/Primary Care Provider: 12/15/18 19:10 UMBERTO ALVARADO MD Discharge Date: 12/25/18 - Discharge Diagnosis (1) Acute respiratory failure with hypoxia Is this a current diagnosis for this admission?: Yes (2) Bilateral pneumonia Is this a current diagnosis for this admission?: Yes (3) Leukocytosis Is this a current diagnosis for this admission?: Yes (4) Severe depression Is this a current diagnosis for this admission?: Yes (5) Transaminitis Is this a current diagnosis for this admission?: Yes - Additional Information Resuscitation Status: Full Code Home Medications: Amitriptyline HCl [Elavil 50 Mg Tablet] 50 mg PO QHS 12/15/18 Atorvastatin Calcium [Lipitor 20 mg Tablet] 20 mg PO DAILY 12/15/18 Cyclobenzaprine HCl [Flexeril 10 mg Tablet] 10 mg PO TIDP PRN 12/15/18 Meloxicam [Mobic] 7.5 mg PO BID 12/15/18 History of Present Illness History of Present Illness: SETH WOODWARD is a 58 year old male with a history of bladder cancer, hyperlipidemia, myalgias, insomnia and depression. His unexpectedly on Mother's Day and 1 of his children was killed in a motor vehicle accident I believe last year. He states that he has not been feeling well for the last 3 to 4 weeks. He felt poorly over the last weekend and presented to an urgent care clinic. He was given doxycycline. He failed to improve. He now is experiencing shortness of breath and the feeling of being generally unwell. He has a congested cough but cannot mobilize secretions. Chest x-ray shows diffuse bilateral groundglass appearance. The patient does have an elevated white blood cell count. This is bilateral pneumonia or pneumonitis. He also complains of headache that is bilateral with scalp hyperesthesia. Patient was extremely restless in the exam room. He stated that he had to urinate. With his history of bladder cancer he reports that he develops urgency and discomfort quite quickly. The patient was referred to the hospital service for admission after being started on antibiotic therapy. Hospital Course Hospital Course: This is 58 years old male patient past medical history of hyperlipidemia and depression with chief complaint of feeling poorly including cough failed to respond to antibiotics as outpatient. His chest x-ray shows bilateral diffuse groundglass opacification. It has been started on antibiotics breathing treatment and supplemental oxygen and admitted to the floor. On the same day patient become combative agitated and transferred to ICU and emergently intubated. Patient extubated 2 days ago and has been doing well so far. This morning I seen patient propped up in bed he is awake alert oriented. He does not have fever, chills, nausea or vomiting. He eats well and tolerates well. 12/25/2018: This morning patient seen while sitting on recliner. He is awake alert oriented and is very eager to go home. He states that he walks 300 feet without device and has taken shower. Patient offered rehab placement or home health and he declined both offerers. I will send him home with Remeron 30 mg p.o. daily, Zithromax and continue the rest of his medication. Physical Exam Vital Signs: Temp Pulse Resp BP Pulse Ox 98.9 F 69 17 155/91 H 95 12/25/18 07:37 12/25/18 07:37 12/25/18 07:37 12/25/18 07:37 12/25/18 07:37 Intake & Output 12/24/18 12/25/18 12/26/18 06:59 06:59 06:59 Intake Total 600 818 Output Total 3415 3000 Balance -8133 -5356 Weight 80.6 kg 79.1 kg General appearance: PRESENT: no acute distress Head exam: PRESENT: atraumatic Eye exam: PRESENT: conjunctiva pink Neck exam: ABSENT: carotid bruit, JVD, lymphadenopathy, thyromegaly Respiratory exam: PRESENT: clear to auscultation alyx. ABSENT: rales, rhonchi, wheezes GI/Abdominal exam: PRESENT: normal bowel sounds, soft. ABSENT: distended, guarding, mass, organolmegaly, rebound, tenderness Neurological exam: PRESENT: alert, awake, oriented to person, oriented to place, oriented to time, oriented to situation Results Laboratory Results: 12/24/18 05:03 12/23/18 03:44 12/19/18 10:50 Blood Blood Culture - Final NO GROWTH IN 5 DAYS 12/19/18 10:19 Blood Blood Culture - Final NO GROWTH IN 5 DAYS 12/15/18 13:55 Troponin I < 0.012 Impressions: Chest CT 12/15/18 00:00 IMPRESSION: Mediastinal and hilar lymphadenopathy.Diffuse interstitial - nodular and ground-glass opacities are present throughout both lungs, upper lobe predominance. No pleural effusion. IMPRESSION: Asymmetric thickening of the bladder wall, left side measures 8 mm thickness. Numerous areas of lymphadenopathy are seen in the external iliac and common iliac chains bilaterally, right greater than left. Head CT 12/15/18 15:18 IMPRESSION: NO ACUTE INTRACRANIAL FINDINGS. EVIDENCE OF ACUTE STROKE: NO. Soft Tissue Neck CT 12/15/18 15:18 IMPRESSION: Mild bilateral cervical level 4 and supraclavicular adenopathy. Coarse interstitial -nodular and ground-glass opacities throughout both upper lobes.Upper mediastinal adenopathy. Abdomen/Pelvis CT 12/15/18 15:19 IMPRESSION: Mediastinal and hilar lymphadenopathy.Diffuse interstitial - nodular and ground-glass opacities are present throughout both lungs, upper lobe predominance. No pleural effusion. IMPRESSION: Asymmetric thickening of the bladder wall, left side measures 8 mm thickness. Numerous areas of lymphadenopathy are seen in the external iliac and common iliac chains bilaterally, right greater than left. Chest/Abdomen CTA 12/20/18 00:00 IMPRESSION: 1. There is no pulmonary embolus. There is no aortic aneurysm or dissection. 2. Small pleural effusions bilaterally. Considerable airspace disease in both lower lobes, atelectasis versus pneumonia. 3. There is fluid in the left upper quadrant of the abdomen. KUB X-Ray 12/20/18 08:03 IMPRESSION: Nasoenteric tube tip overlies gastric body. Chest X-Ray 12/24/18 06:00 IMPRESSION: Basilar opacities stable since yesterday but improved over the . Qualifiers - * PATIENT BEING DISCHARGED WITH ANY OF THE FOLLOWING DIAGNOSIS: No Acute Heart Failure - Is this a Heart Failure Patient?: No LVEF < 40%?: No- if no continue to question #3 3. Anticoagulant therapy for permanect/persistent/paraoxysmal Afib or Aflutter: N/A Follow-up Appointment scheduled within 7 days?: Yes
[2018-12-25 11:09] VITALS: BP 143/83
== END 2018-12-25 11:23 | disposition home or self-care (01) | DRG 207 ==
LOC: ER 12:42 → EH 19:10 → 4N 21:33 → ICU 12-16 01:09 → 3N 12-23 23:04
PROVIDERS: ADMIT Hospitalist; ATTEND Hospitalist
PROC: 5A1955Z Respiratory Ventilation, Greater than 96 Consecutive Hours (ICD-10-PCS; principal; 2018-12-16)
PROC: 0BH17EZ Insertion of Endotracheal Airway into Trachea, Via Natural or Artificial Opening (ICD-10-PCS; 2018-12-16)
DX: J96.01 Acute respiratory failure with hypoxia (principal); J18.9 Pneumonia, unspecified organism; R44.2 Other hallucinations; F10.231 Alcohol dependence with withdrawal delirium; E78.5 Hyperlipidemia, unspecified; C67.9 Malignant neoplasm of bladder, unspecified; R74.0 Nonspecific elevation of levels of transaminase and lactic acid dehydrogenase [LDH]; E83.51 Hypocalcemia; E88.09 Other disorders of plasma-protein metabolism, not elsewhere classified; R20.3 Hyperesthesia; F41.1 Generalized anxiety disorder; F32.9 Major depressive disorder, single episode, unspecified; R51 Headache; Y90.0 Blood alcohol level of less than 20 mg/100 ml; Z78.1 Physical restraint status; Z63.4 Disappearance and death of family member
CPT/HCPCS: 31500; 36415; 36600; 70450; 70491; 71045; 71046; 71260; 71275; 74018; 74177; 80048; 80053; 80307; 81001; 82803; 82962; 82977; 83605; 83690; 83735; 84100; 84134; 84484; 85025; 85610; 86738; 87040; 87070; 87086; 87205; 93005; 93010; 93926; 94002; 94003; 94660; 94667; 94668; 94799; 96361; 96365; 96367; 96375; 96376; 99285; J0131; J0456; J0696; J1630; J1650; J1885; J2060; J2250; J2270; J2405; J2543; J2704; J3230; J3360; J3411; J3475; J3480; J3490; J7030; J7050; J7060; J7120; J7620; P9047; S0164

== ENCOUNTER → 2019-02-15 | Outpatient (CLI) | payer BC ==
--- NOTE | 2019-02-15 13:15 | RADIOLOGY REPORT (SQ) ---
EXAM DESCRIPTION: MRI RT UPPER JOINT WITHOUT COMPLETED DATE/TIME: 02/15/2019 8:57 am REASON FOR STUDY: PAIN IN RIGHT SHOULDER (M25.511) M25.511 PAIN IN RIGHT SHOULDER M25.512 PAIN IN LEFT SHOULDER COMPARISON: None. TECHNIQUE: Right shoulder images acquired and stored on PACS. Multiplanar imaging to include fat sen sitive sequences such as T1, water sensitive sequences such as FST2/STIR, cartilage sensitive sequenc es such as FSPD/gradient-echo sequences. LIMITATIONS: None. FINDINGS: BONE MARROW AND CORTEX: No worrisome bone lesions or marrow replacement. No occult fractur es. JOINT OR BURSAL EFFUSION: No large joint effusion. Minimal subacromial/subdeltoid bursal fluid GLENO-HUMERAL ARTICULATION: Normal articulation. No subluxation. No cystic change. No osteophytes or cartilage loss. ACROMION AND AC JOINT: Type 2 acromion with bulky acromioclavicular joint hypertrophy mildly narrowi ng subacromial space on sagittal image 12 ROTATOR CUFF AND INTERVAL: Multiple thickness tear of the anterior half of the supraspinatus tendon o n sagittal images 4-10 and coronal images 9-12. This extends into the rotator interval. Supraspinat us intact. Mild tendinopathy superior margin of the subscapularis tendon LABRUM AND BICEPS LABRAL COMPLEX: Intra-articular long head biceps tendinopathy is present. Diffuse ly small irregular glenoid labrum without paralabral cyst. PERIARTICULAR AND ADJACENT SOFT TISSUES: No masses or abnormal nodes. OTHER: No other significant finding. IMPRESSION: Small full-thickness anterior supraspinatus tear extending into the rotator interval Intra-articular long head biceps tendinopathy with diffusely abnormal glenoid labrum Bulky acromioclavicular joint hypertrophy TECHNICAL DOCUMENTATION: JOB ID: [id number] [employer]- All Rights Reserved Reading location - IP/workstation name: [email or web address]
--- NOTE | 2019-02-15 13:31 | RADIOLOGY REPORT (SQ) ---
EXAM DESCRIPTION: MRI LT UPPER JOINT WITHOUT COMPLETED DATE/TIME: 02/15/2019 8:57 am REASON FOR STUDY: PAIN IN LEFT SHOULDER (M25.512) M25.511 PAIN IN RIGHT SHOULDER M25.512 PAIN IN L EFT SHOULDER COMPARISON: None. TECHNIQUE: Left shoulder images acquired and stored on PACS. Multiplanar imaging to include fat sens itive sequences such as T1, water sensitive sequences such as FST2/STIR, cartilage sensitive sequence s such as FSPD/gradient-echo sequences. LIMITATIONS: None. FINDINGS: BONE MARROW AND CORTEX: No worrisome bone lesions or marrow replacement. No occult fractur es. JOINT OR BURSAL EFFUSION: Small glenohumeral joint effusion communicating with the subacromial/subdel toid bursa through a full-thickness rotator cuff tear GLENO-HUMERAL ARTICULATION: Normal articulation. No subluxation. No cystic change. No osteophytes or cartilage loss. ACROMION AND AC JOINT: Type 2 acromion with bulky acromioclavicular joint hypertrophy on coronal janusz ge 10 narrowing the subacromial space ROTATOR CUFF AND INTERVAL: Full-thickness tear anterior supraspinatus tendon extending into the rotat or interval and into the anterior edge infraspinatus tendon. Broad bare area over the humeral head w hich abuts the undersurface of the acromion best shown on sagittal images 4-9 and coronal images 6-13 . Mild fatty atrophy of the supraspinatus muscle LABRUM AND BICEPS LABRAL COMPLEX: Diffuse thinning of the intra-articular long head biceps tendon f rom tendinopathy. Superior labrum is intact. REMAINDER OF LABRUM AND IGHL : No gross tear or paralabral cyst formation. Labral evaluation is less than optimal without joint distention. No thickening of IGHL to suggest adhesive capsulitis. PERIARTICULAR AND ADJACENT SOFT TISSUES: No masses or abnormal nodes. OTHER: No other significant finding. IMPRESSION: Full-thickness supraspinatus tear extending into the rotator interval and anterior edge of the infraspinatus tendon Bulky acromioclavicular joint hypertrophy. Intra-articular long-head site of tendinopathy without gross evidence of labral tear TECHNICAL DOCUMENTATION: JOB ID: [id number] [employer]- All Rights Reserved Reading location - IP/workstation name: [email or web address]
== END ==
LOC: RAD 07:43
PROVIDERS: ATTEND Physician Assistant
DX: M75.122 Complete rotator cuff tear or rupture of left shoulder, not specified as traumatic (principal); M75.121 Complete rotator cuff tear or rupture of right shoulder, not specified as traumatic; M25.511 Pain in right shoulder; M25.512 Pain in left shoulder